=== PATIENT | male | born 1955 | race Caucasian/White ===

== ENCOUNTER 2020-01-11 19:19 | Inpatient (IN) | payer OTHER, MEDICARE ==
[~2020-01-11] VITALS: Ht 182.9 cm; Wt 67.0 kg
[2020-01-11 19:40] LABS: Calcium, Ionized (POC) 1.16 mmol/L (1.10-1.46); Chloride (POC) 108 mmol/L (98-108); Creatinine (POC) 1.1 mg/dL (0.8-1.3); Glucose (ISTAT POC) 109 mg/dL (70-99); Hemoglobin (POC) 11.6 g/dL (13.5-17.5); Sodium (POC) 142 mmol/L (135-148); Total CO2 (POC) 23 mmol/L (21-32)
[2020-01-11 19:50] LABS: PCO2 Arterial 28.2 mmHg (35-45); PO2 Arterial 104 mmHg (80-100); pH Blood Arterial 7.52 (7.35-7.45)
[2020-01-11 19:51] LABS: BASOPHILS PERCENT AUTO 1 % (0-2); EOSINOPHILS ABSOLUTE AUTO 0.51 K/mm3 (0.00-0.68); EOSINOPHILS PERCENT AUTO 6 % (0-6); Hematocrit 33.6 % (37.0-53.0); Hemoglobin 10.8 g/dL (13.5-17.5); IMMATURE GRAN ABSOLUTE AUTO 0.12 K/mm3 (0.00-0.10); IMMATURE GRAN PERCENT AUTO 1 % (0-1); LYMPHOCYTES PERCENT AUTO 28 % (21-46); MONOCYTES ABSOLUTE AUTO 0.65 K/mm3 (0.16-1.47); MONOCYTES PERCENT AUTO 7 % (4-13); Mean Corpuscular HGB Conc 32.1 g/dL (31.5-36.5); Mean Corpuscular Volume 90 fL (80-100); NEUTROPHILS PERCENT AUTO 57 % (41-73); Platelet Count 262 K/mm3 (150-400); RDW Coefficient Variation 13.8 % (11.7-14.2); Red Blood Cell Count 3.73 M/mm3 (4.30-5.90); White Blood Cell Count 9.18 K/mm3 (4.00-11.30)
[2020-01-11 19:55] LABS: Source, Urine Catheter
[2020-01-11 20:05] LABS: Bilirubin, Urine Neg (Neg); Blood, Urine Neg (Neg); Glucose Qualitative, Urine Neg (Neg); Ketones, Urine Neg (Neg); Leukocyte Esterase, Urine Neg (Neg); Nitrite, Urine Neg (Neg); Protein, Urine 2+ (Neg); Urobilinogen, Urine NORM (Normal)
[2020-01-11 20:07] LABS: Appearance, Urine Clear (Clear); Color, Urine Yellow (P-Yellow)
[2020-01-11 20:12] LABS: Bacteria Few /hpf; Red Blood Cells, Urine 0-2 /hpf (0-2); Squamous Epithelial Cells Rare /hpf (Few); White Blood Cells, Urine 0-2 /hpf (0-5)
[2020-01-11 20:26] LABS: Alanine Aminotransfer (ALT/SGP 20 U/L (12-78); Albumin/Globulin Ratio 1.1 (0.8-1.8); Alk Phos 72 U/L (50-136); Anion Gap 8 mmol/L (6-16); Aspartate Aminotrans (AST/SGOT 18 U/L (12-37); Bilirubin, Total 0.4 mg/dL (0.1-1.0); Blood Urea Nitrogen 17 mg/dL (8-24); CO2, Blood 25 mmol/L (21-32); Calcium, Blood 9.4 mg/dL (8.5-10.1); Chloride, Blood 110 mmol/L (98-108); Creatinine, Blood 1.13 mg/dL (0.60-1.20); Globulin, Blood 3.5 g/dL (2.2-4.0); Glomerular Filtration Rate >60 (60-); Glucose, Blood 103 mg/dL (70-99); Potassium, Blood 3.1 mmol/L (3.5-5.5); Sodium, Blood 143 mmol/L (136-145); Total Protein, Blood 7.5 g/dL (6.4-8.2)
[2020-01-11 20:27] LABS: Troponin I <0.015 ng/mL (0.000-0.040)
[2020-01-11] MEDS ORDERED: LISINOPRIL2.5 MG PO (22:52)
[2020-01-11] MEDS ORDERED: NOVOLOG100 UNIT/2 SC (22:53)
[2020-01-11] MEDS ORDERED: AMLODIPINE BES2.5 MG PO (22:53)
[2020-01-11] MEDS ORDERED: CREON DR 24,001 EACH PO (22:54)
[2020-01-11] MEDS ORDERED: BASAGLAR K100 UNIT/1 SC (22:54)
--- NOTE | 2020-01-12 00:15 | NUR ---
PATIENT ARRIVED TO ICU 8 VIA GURNEY FROM ED. PCU STATUS, FOR ACUTE METABOLIC ENCEPHALOPATHY. PATIENT AWAKE ABLE TO ANSWER SIMPLE QUESTIONS, YET VERY FORGETFUL. PATIENT TRANSFER TO BED USING SLIDER SHEET AND PLACED ON ICU MONITORS SHOWING AFIB WITH RATE 120'S. CARDIZEM DRIP INFUSING AT 5 MG/HR. FREQUENTLY ATTEMPTING TO GET OUT OF BED AND PULLING OFF BLANKETS AND GOWN, MAEW, PATIENT HAVING CONFUSED CONVERSATION AND NEEDING FREQUENT REMINDERS. HYPERTENSION
--- NOTE | 2020-01-12 02:48 | NUR ---
PATIENT CONTINUES TO HAVE FREQUENT RESTLESS MOMENTS, PULLING AT LINES AND CORDS. BILAT WRIST RESTRAINTS IN PLACE TO PREVENT ACCIDENTAL REMOVAL OF IV'S AND MONITORS. PATIENT NEEDING FREQUENT REMINDERS THAT HE HAS A JACOME DRAINING HIS URINE. HAVING NAUSEA AND DRY HEAVES WITH ORAL CARE, MOUTH SLIGHTLY BLOODY, UNABLE TO SEE WHERE BLEEDING FROM DUE TO NOT FOLLOWING DIRECTIONS TO OPEN MOUTH WIDE. CHANGING TO SINUS RHYTHM, CARDIZEM CONTINUES AT 5 MG. HYPERTENSION CONTINUES. ATTENDS IN PLACE DUE TO INCONT OF STOOL IN ED.
[2020-01-12 04:21] LABS: BASOPHILS ABSOLUTE AUTO 0.06 K/mm3 (0.00-0.23); BASOPHILS PERCENT AUTO 0 % (0-2); EOSINOPHILS PERCENT AUTO 0 % (0-6); Hematocrit 29.9 % (37.0-53.0); Hemoglobin 9.5 g/dL (13.5-17.5); IMMATURE GRAN ABSOLUTE AUTO 0.13 K/mm3 (0.00-0.10); IMMATURE GRAN PERCENT AUTO 1 % (0-1); LYMPHOCYTES ABSOLUTE AUTO 0.95 K/mm3 (0.84-5.20); LYMPHOCYTES PERCENT AUTO 4 % (21-46); MONOCYTES ABSOLUTE AUTO 0.81 K/mm3 (0.16-1.47); MONOCYTES PERCENT AUTO 4 % (4-13); Mean Corpuscular HGB 28.9 pg (26.0-34.0); Mean Corpuscular HGB Conc 31.8 g/dL (31.5-36.5); Mean Corpuscular Volume 91 fL (80-100); Mean Platelet Volume 12.9 fL (9.1-12.4); NEUTROPHILS ABSOLUTE AUTO 21.05 K/mm3 (1.96-9.15); NEUTROPHILS PERCENT AUTO 92 % (41-73); Platelet Count 228 K/mm3 (150-400); RDW Coefficient Variation 13.9 % (11.7-14.2); RDW Standard Deviation 46.2 fL (35.1-46.3); Red Blood Cell Count 3.29 M/mm3 (4.30-5.90)
[2020-01-12] MEDS ORDERED: LIDO700A20 TOP (04:22)
[2020-01-12] MEDS ORDERED: LIDO5TO TOP (04:23)
[2020-01-12] MEDS ORDERED: GVOKE HYPO0.5 MG/0.2 SQ (04:25)
[2020-01-12] MEDS ORDERED: Cymbalta20 MG PO (04:25)
[2020-01-12] MEDS ORDERED: CALCITONIN-SAL3.7 M1 (04:27)
[2020-01-12 04:45] LABS: Alanine Aminotransfer (ALT/SGP 23 U/L (12-78); Albumin, Blood 3.7 g/dL (3.4-5.0); Albumin/Globulin Ratio 1.2 (0.8-1.8); Alk Phos 70 U/L (50-136); Anion Gap 8 mmol/L (6-16); Aspartate Aminotrans (AST/SGOT 20 U/L (12-37); Bilirubin, Total 0.4 mg/dL (0.1-1.0); Blood Urea Nitrogen 19 mg/dL (8-24); Bun/Creatinine Ratio 16.8 (12.0-20.0); CO2, Blood 26 mmol/L (21-32); Calcium, Blood 8.6 mg/dL (8.5-10.1); Chloride, Blood 107 mmol/L (98-108); Creatinine, Blood 1.13 mg/dL (0.60-1.20); Glomerular Filtration Rate >60 (60-); Glucose, Blood 272 mg/dL (70-99); Potassium, Blood 3.6 mmol/L (3.5-5.5); Sodium, Blood 141 mmol/L (136-145); Total Protein, Blood 6.7 g/dL (6.4-8.2)
--- NOTE | 2020-01-12 06:08 | NUR ---
SUMMARY PATIENT IMPULSIVE AND UNPREDICTABLE, SPEECH CLEARING, BUT CONTINUES TO HAVE CONFUSED CONVERSATION AND VERY FORGETFUL. MAEW BUT APPEARS TO LEAN TO HIS RIGHT SIDE. BILAT WRIST RESTRAINTS CONTINUE DUE TO PATIENT PULLING ON LINES AND CORDS AND ATTEMPTING TO GET UP WITHOUT ASSISTANCE. PATIENT REMAINS IN SINUS RHYTHM WITH CARDIZEM AT 5 MG/HR. PATIENT HAVING NAUSEA OFF AND ON WITH NO EMESIS. PASSING SEVERAL SOFT BROWN BM'S T/O NOC. ADMIT HX AND [facility]
--- NOTE | 2020-01-12 07:45 | NUR ---
AM NOTE... ASSUMED CARE OF PT APROX 0700, PT AWAKEN TO VERBAL/TOUCH STIMULI PT IS NOT ORIENTED AT THIS TIME, ABLE TO STATE HIS NAME BUT NOT BIRTHDAY, PT HAS BEEN YELLING OUT "HELP ME HELP ME!" PT HAS BEEN LEANING OVER TO THE RIGHT SIDE THROWING HIS LEGS OVER THE LEFT SIDE OF THE BED, PT IS VERY STIFF TO ANY MOVEMENT. PT'S MEDICINE TECHNOLOGIST ARE STRONG AND EQUAL, PT IS ABLE TO MOVE BOTH LEGS WNL WELL. L/S CLEAR T/O ON RA WITH O2 SATS >90%. BT PRESENT AND HYPERACTIVE, PT IS C/O OF NAUSEA. PT MEDICATED PER EMAR. JACOME PATENT AND DRAINING CLEAR YELLOW URINE W/PINK TINGE TO GRAVITY. CALL LIGHT IN REACH WILL CONTINUE TO MONITOR.
--- NOTE | 2020-01-12 11:26 | NUR ---
PT UPDATE.. DR. SMITH AT THE BEDSIDE TO ASSESS PT, PT CONTINUES TO BE VERY STIFF LUMBAR PUNCTURE ORDERED STAT. WILL CONTINUE TO MONITOR.
[2020-01-12 12:53] LABS: Automated CSF WBC Count 0.002 K/mm3 (0-5); WBC Count, CSF 2 /mm3 (0-5)
[2020-01-12 13:05] LABS: RBC Count, CSF 0 /mm3 (0-0)
[2020-01-12 13:12] LABS: Lymphocytes, CSF 29 % (40-80); Monocytes, CSF 57 % (15-45); Neutrophils, CSF 14 % (0-6)
[2020-01-12 13:13] LABS: Appearance, CSF Clear (Clear); Color, CSF No Color (No Color)
[2020-01-12 13:18] LABS: Glucose, CSF 135 mg/dL (40-70)
[2020-01-12 14:11] LABS: Cryptococcus Neoformans/Gattii Not Detected (NOT DETECT); Enterovirus Not Detected (NOT DETECT); Escherichia Coli K1 Not Detected (NOT DETECT); Haemophilus Influenza Not Detected (NOT DETECT); Herpes Simplex Virus 1 Not Detected (NOT DETECT); Herpes Simplex Virus 2 Not Detected (NOT DETECT); Human Herpesvirus 6 Not Detected (NOT DETECT); Human Parechovirus Not Detected (NOT DETECT); Listeria Monocytogenes Not Detected (NOT DETECT); Neisseria Meningitidis Not Detected (NOT DETECT); Streptococcus Agalactiae Not Detected (NOT DETECT); Streptococcus Pneumoniae Not Detected (NOT DETECT); Varicella Zoster Virus Not Detected (NOT DETECT)
[2020-01-12 15:12] LABS: U Amphetamine Screen Not Detected; U Barbituate Screen Not Detected; U Benzodiazapine Screen Not Detected; U Buprenorphine Screen Not Detected; U Cannabinoids Screen DETECTED; U Cocaine Screen Not Detected; U Methadone Screen Not Detected; U Methamphetamine Screen Not Detected; U Opiates Screen Not Detected; U Oxycodone Screen Not Detected; U Phencyclidine Screen Not Detected; U Propoxyphene Screen Not Detected
--- NOTE | 2020-01-12 17:27 | NUR ---
SHIFT SUMMARY... PT CONTINUES TO BE CONFUSED AND AGITATED, PT WAS GIVEN IV ATIVAN WHICH HAS HELPED THE PT RELAX AND REDUCE HIS AGITATION. PT HAS BEEN HYPERTENSIVE WITH SBP 170'S-180'S NEW ORDERS OBTAINED FOR LABATALOL Q4 FOR SBP >170. PT'S JACOME PATENT AND DRAINING DARK YELLOW URINE TO GRAVITY. PT REMAINS IN RESTRAINTS D/T HIS IMPULSIVNESS AND HIS PICKING/PULLING AT HIS LINES/TUBES/CORDS. PT REMAINS IN AIRBORN ISOLATION UNTIL MENIGITIS IS RULED OUT. PT IS ALSO R/O COVID-19, SWAB WAS DONE AND SENT TO LAB. PT CONTINUES TO C/O OF NAUSEA, NO EMISIS HAS BEEN NOTED THIS SHIFT. PT'S CALLED AND UPDATED ON PT'S PLAN OF CARE AND CONDITION. WILL CONTINUE TO MONITOR UNTIL REPORT IS GIVEN TO ONCOMING RN.
--- NOTE | 2020-01-12 20:00 | NUR ---
ASSUMED CARE OF PT AT 1915. REPORT RECEIVED. PT PRESENTS IN BED SLEEPING. EASILY AROUSES TO VERBAL. PLEASANT AND COOPERATIVE WITH CARE AND ASSESSMENT. IS SOMEWHAT DISORIENTED. RESTLESS IN BED WHEN AWAKE. IS ABLE TO HOLD CONVERSATION THOUGH WANDERS OFF CONVERSATIONAL PATH. IN NO APPARENT DISTRESS AT THIS TIME. WILL REVIEW CHART AND PLAN OF CARE FOR THIS PT.
--- NOTE | 2020-01-13 00:30 | NUR ---
HAVE REMOVED LOWER EXTREMITY RESTRAINTS BUT HAVE LEFT VEST AND UPPER RESTRAINTS IN PLACE. PT HAS BEEN OBSERVED TRYING TO GET AHOLD OF HIS CATHETER AND ATTEMPT TO PULL. WILL CONTINUE TO MONITOR. OF NOTE: PT DOES TEND TO LEAN SELF TO THE RIGHT AND TURN HEAD TO RIGHT. SALES RECORD CLERK ARE EQUAL BI LAT. PUPILS PERRLA. WILL CONTINUE TO MONITOR.
[2020-01-13 03:59] LABS: BASOPHILS ABSOLUTE AUTO 0.04 K/mm3 (0.00-0.23); BASOPHILS PERCENT AUTO 0 % (0-2); EOSINOPHILS ABSOLUTE AUTO 0.01 K/mm3 (0.00-0.68); EOSINOPHILS PERCENT AUTO 0 % (0-6); Hematocrit 32.3 % (37.0-53.0); Hemoglobin 10.5 g/dL (13.5-17.5); IMMATURE GRAN ABSOLUTE AUTO 0.17 K/mm3 (0.00-0.10); IMMATURE GRAN PERCENT AUTO 1 % (0-1); LYMPHOCYTES ABSOLUTE AUTO 1.64 K/mm3 (0.84-5.20); LYMPHOCYTES PERCENT AUTO 6 % (21-46); MONOCYTES ABSOLUTE AUTO 1.53 K/mm3 (0.16-1.47); MONOCYTES PERCENT AUTO 6 % (4-13); Mean Corpuscular HGB 29.2 pg (26.0-34.0); Mean Corpuscular HGB Conc 32.5 g/dL (31.5-36.5); Mean Corpuscular Volume 90 fL (80-100); Mean Platelet Volume 12.8 fL (9.1-12.4); NEUTROPHILS ABSOLUTE AUTO 23.35 K/mm3 (1.96-9.15); NEUTROPHILS PERCENT AUTO 88 % (41-73); Platelet Count 251 K/mm3 (150-400); RDW Coefficient Variation 14.1 % (11.7-14.2); White Blood Cell Count 26.74 K/mm3 (4.00-11.30)
[2020-01-13 04:19] LABS: Anion Gap 7 mmol/L (6-16); Blood Urea Nitrogen 26 mg/dL (8-24); Bun/Creatinine Ratio 21.7 (12.0-20.0); CO2, Blood 26 mmol/L (21-32); Calcium, Blood 8.2 mg/dL (8.5-10.1); Chloride, Blood 109 mmol/L (98-108); Glomerular Filtration Rate >60 (60-); Glucose, Blood 234 mg/dL (70-99); Potassium, Blood 3.2 mmol/L (3.5-5.5); Sodium, Blood 142 mmol/L (136-145)
--- NOTE | 2020-01-13 06:30 | NUR ---
PT HAS MADE MULTIPLE ATTEMPTS TO GET AHOLD OF HIS CATHETER. NEEDED TO BE REDIRECTED. PT DEMONSTRATES THAT HE IS SOMEWHAT FORGETFUL. NO NEW NEURO DEFICITS NOTED. WILL CONTINUE TO MONITOR, AND WILL REPORT OFF TO ONCOMING RN.
--- NOTE | 2020-01-13 07:45 | NUR ---
AM NOTE... ASSUMED CARE OF PT APROX 0700, PT IS A&Ox4 WITH MOMENTS OF CONFUSION, PT'S MENTATION HAS GREATLY IMPROVED FROM YESTERDAY, PT IS ABLE TO STATE THE MONTH, THAT HE IS IN [facility] IN [place] AND THAT HE WAS BROUGHT HERE BECAUSE OF CONFUSION. PT IS RESPONDING APROPPRIATLY TO ALL QUESTIONS THIS MORNING. PT IS IN NSR IN THE 70'S-80'S WITH STABLE BPS. PT IS ON CARDIZEM GTT RUNNING AT 5MG/HR. L/S CLEAR T/O ON RA AND USING 2L NC FOR SLEEP, PT IS NOTED TO HAVE APNIC PERIODS DURING SLEEP WHERE HE DROPS DOWN INTO THE 70'S. BT PRESENT AND HYPOACTIVE, ABD SOFT AND NONTENDER TO PALP. NO EDEMA NOTED ON ASSESSMENT. PT'S HYDRODYNAMICS PROFESSOR ARE STRONG AND EQUAL, PT IS ABLE TO MOVE HIS LEGS BILAT, STRENGHT EQUAL IN LEGS BILAT WELL. PT'S STIFFNESS HAS IMPROVED A LITTLE FROM YESTERDAY WELL. JAOCME IS PATENT AND DRAINING CLEAR URINE TO GRAVITY. DR. GRANT AT THE [facility] FOR ASSESSMENT, PT WAS GIVEN CLEAR LIQUID DIET AND IS SWALLOWING WATER WELL AT THIS TIME. CALL LIGHT IN REACH WILL CONTINUE TO MONITOR.
--- NOTE | 2020-01-13 18:05 | NUR ---
SHIFT SUMMARY.... PT CONTINUES TO BE A&Ox4 WITH SMALL MOMENTS OF CONFUSION ESPECIALLY IF HE HAS JUST WOKEN UP. PT HAS STOPPED PULLING ON THE IV TUBES AND JACOME AND HAS NOT BEEN IMPULSIVE ABOUT GETTING UP OUT OF BED TO THE RESTRAINTS WERE STOPPED. PT WAS STARTED ON A CLEAR LIQUID DIET PER DR. GRANT AND IS TO ADVANCE TOLERATED, PT DID WELL WITH SWALLOWING AND WAS ADVANCED TO FULL LIQUID FOR DINNER. PT WAS GOTTEN UP WITH 2 PERSON TRANSFER TO A CHAIR FOR DINNER, PT SAT UP IN CHAIR WITH A SLIGHT LEAN TO THE RIGHT BUT WAS ABLE TO FEED HIMSELF WITH IS RIGHT HAND WITHOUT SPILLING ANY FOOD. TMAX FOR TODAY WAS 100.2, TEMP JACOME PATENT AND DRAINING CLEAR YELLOW URINE TO GRAVITY. PT WAS ABLE TO SPEAK WITH HIS ON THE PHONE TODAY. CALL LIGHT IN REACH, BEDALARM ON WILL CONTINUE TO MONITOR UNTIL REPORT IS GIVEN TO ONCOMING RN.
--- NOTE | 2020-01-13 20:00 | NUR ---
ASSUMED CARE OF PT AT 1915. REPORT RECEIVED AT BEDSIDE. PT PRESENTS IN BED. ALERT AND ORIENTED. VERY PLEASANT AND COOPERATIVE WITH CARE AND ASSESSMENT. DENIES PAIN. DOES REMAIN WITH HEAD/NECK TILTED TO RIGHT. SUPERVISOR MENDING EQUAL BILAT. ABLE TO MOVE ABOUT IN BED ON HIS OWN. WILL REVIEW CHART AND PLAN OF CARE FOR THIS PT.
--- NOTE | 2020-01-14 | NUR ---
HAVE MEDICATED PT WITH 10 MG LABATELOL FOR ELEVATING BLOOD PRESSURES. PT REMAINS COOPERATIVE WITH CARE AND HAS NOT PULLED AT LINES OR MADE ANY ATTEMPTS TO GET OUT OF BED.
[2020-01-14 04:30] LABS: BASOPHILS ABSOLUTE AUTO 0.05 K/mm3 (0.00-0.23); BASOPHILS PERCENT AUTO 0 % (0-2); EOSINOPHILS ABSOLUTE AUTO 0.04 K/mm3 (0.00-0.68); EOSINOPHILS PERCENT AUTO 0 % (0-6); Hematocrit 31.2 % (37.0-53.0); Hemoglobin 9.8 g/dL (13.5-17.5); IMMATURE GRAN ABSOLUTE AUTO 0.11 K/mm3 (0.00-0.10); IMMATURE GRAN PERCENT AUTO 1 % (0-1); LYMPHOCYTES ABSOLUTE AUTO 2.02 K/mm3 (0.84-5.20); LYMPHOCYTES PERCENT AUTO 10 % (21-46); MONOCYTES ABSOLUTE AUTO 1.25 K/mm3 (0.16-1.47); MONOCYTES PERCENT AUTO 6 % (4-13); Mean Corpuscular HGB 28.4 pg (26.0-34.0); Mean Corpuscular HGB Conc 31.4 g/dL (31.5-36.5); Mean Corpuscular Volume 90 fL (80-100); Mean Platelet Volume 12.5 fL (9.1-12.4); NEUTROPHILS ABSOLUTE AUTO 16.13 K/mm3 (1.96-9.15); NEUTROPHILS PERCENT AUTO 82 % (41-73); Platelet Count 242 K/mm3 (150-400); RDW Standard Deviation 46.9 fL (35.1-46.3); Red Blood Cell Count 3.45 M/mm3 (4.30-5.90)
[2020-01-14 04:52] LABS: Anion Gap 5 mmol/L (6-16); Blood Urea Nitrogen 25 mg/dL (8-24); Bun/Creatinine Ratio 21.2 (12.0-20.0); CO2, Blood 29 mmol/L (21-32); Calcium, Blood 7.8 mg/dL (8.5-10.1); Chloride, Blood 109 mmol/L (98-108); Creatinine, Blood 1.18 mg/dL (0.60-1.20); Glomerular Filtration Rate >60 (60-); Glucose, Blood 138 mg/dL (70-99); Potassium, Blood 3.1 mmol/L (3.5-5.5); Sodium, Blood 143 mmol/L (136-145)
--- NOTE | 2020-01-14 06:30 | NUR ---
PT HAS BEEN TO CT AND IS NOW BACK. TOLERATED PROCEDURE WELL. NO COMPLAINTS THROUGHOUT THE NIGHT. NO CHANGES TO REPORT TO PREVIOUS ASSESSMENTS. 2 LITERS OXYGEN PER NASAL CANNULA WHILE ASLEEP SECONDARY TO SLEEP APNEA BREATHING PATTERN WHILE ASLEEP. WILL CONTINUE TO MONITOR PT, AND WILL REPORT OFF TO ONCOMING RN.
[2020-01-14] MEDS ORDERED: Amoxicillin500 MG PO (15:13)
[2020-01-14] MEDS ORDERED: ASPI325 PO (15:14)
--- NOTE | 2020-01-14 16:35 | NUR ---
TRANSFER TO [facility] AT 1615 PT REMAINED DROWSY ALL DAY BUT APPROPRIATE AND COOPERATIVE WHEN AWAKE, ORIENTED X4. TOOK A FEW BITES OF FOOD BUT THEN FELL BACK ASLEEP. WAS UNABLE TO PARTICIPATE MUCH IN PT/OT D/T NAUSEA DESPITE BEING MEDICATED PRIOR TO THERAPIES. NAA DC'D AT 1238, PT HAS NOT YET VOIDED. PT'S NECK STIFFNESS SEEMS TO BE IMPROVING FROM NOC SHIFT REPORT, PT ABLE TO TURN HEAD SIDE TO SIDE, HEAD RESTING MIDLINE AND NOT TO R SIDE ANYMORE. PT DID HAVE SOME STIFFNESS WHEN ASKED TO PUT CHIN TO CHEST, DENIED PAIN. BP BECAME INCREASINGLY ELEVATED THIS AFTERNOON, MEDICATED X1 WITH LABETOLOL FOR HTN PRIOR TO TRANSFER TO MED FLOOR. HR REMAINS 70'S SINUS T/O SHIFT, LS CLEAR, SPO2 >90% ON RA. NO BM THIS SHIFT. REPORT TO RECEIVING NURSE.
--- NOTE | 2020-01-14 17:41 | NUR ---
Initial spiritual care note: Mr. Melendez was pleasant and welcomed conversation/companionship. He and his moved to [place] from [place] on Saturday. He blames what happened on his exposure to [place] while in [facility]. He also says he is prone to strokes. He is happy to be feeling better and denied conerns. He allowed me to pray for him. Pastoral care will remain available.
--- NOTE | 2020-01-14 18:04 | NUR ---
SHIFT SUMMARY PATIENT ARRIVED TO THE FLOOR FROM ICU LATE THIS AFTERNOON. PATIENT DROWSY YET ALERT UPON ARRIVAL. PATIENT MADE COMFORTABLE AND ORIENTED TO THE ROOM. PATIENT REQUESTED CONTACT WITH HIS . CALL PLACED TO HIS AND MESSAGE LEFT. AWAITING CALL BACK. PATIENT SITTING UP IN BED EATING DINNER.
--- NOTE | 2020-01-15 04:38 | NUR ---
BENDER HELPER SUMMARY PT A/O X3, CANNOT RECALL YEAR. SLEPT WELL TONIGHT. DENIES PAIN. HE IS NAUSEOUS WHEN HE IS REPOSITIONED BUT HE SAYS IT'S TOLERABLE. NO SLURRED SPEECH. EXPRESSIONS ARE SYMMETRICAL. PT DENIES WEAKNESS IN ONE PARTICULAR SIDE. I DID NOT NOTICE DIFFERENCE IN ANALYSIS REPORTING DEVELOPER. PT EXPRESSES TO ME ITS "GENERALIZED WEAKNESS". 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 HE SEEMS MORE ORIENTED COMPARED TO BEGINNING OF SHIFT WHERE HE WAS CALLING OUT FOR HELP ABOUT HIS AND DAUGHTER MULTIPLE TIMES. HAD VISITED PT AT BEGINNING OF SHIFT WHO EXPRESSED HER CONCERN TO ME ABOUT NOT BEING ABLE TO TAKE CARE OF PT BY HERSELF BECAUSE HE CANNOT AMBULATE BY HIMSELF. PT IS HYPERTENSIVE. LABETALOL GIVEN THIS MORNING WHICH LOWERED HIS BP A LITTLE BIT. BED ALARM ON. CALL LIGHT WITHIN REACH.
[2020-01-15 05:48] LABS: BASOPHILS ABSOLUTE AUTO 0.04 K/mm3 (0.00-0.23); BASOPHILS PERCENT AUTO 0 % (0-2); EOSINOPHILS ABSOLUTE AUTO 0.04 K/mm3 (0.00-0.68); EOSINOPHILS PERCENT AUTO 0 % (0-6); Hemoglobin 10.8 g/dL (13.5-17.5); IMMATURE GRAN ABSOLUTE AUTO 0.05 K/mm3 (0.00-0.10); IMMATURE GRAN PERCENT AUTO 0 % (0-1); LYMPHOCYTES ABSOLUTE AUTO 1.21 K/mm3 (0.84-5.20); LYMPHOCYTES PERCENT AUTO 9 % (21-46); MONOCYTES ABSOLUTE AUTO 1.05 K/mm3 (0.16-1.47); MONOCYTES PERCENT AUTO 8 % (4-13); Mean Corpuscular HGB 28.5 pg (26.0-34.0); Mean Corpuscular HGB Conc 31.8 g/dL (31.5-36.5); Mean Corpuscular Volume 90 fL (80-100); Mean Platelet Volume 12.3 fL (9.1-12.4); NEUTROPHILS ABSOLUTE AUTO 10.94 K/mm3 (1.96-9.15); NEUTROPHILS PERCENT AUTO 82 % (41-73); Platelet Count 240 K/mm3 (150-400); RDW Coefficient Variation 13.9 % (11.7-14.2); Red Blood Cell Count 3.79 M/mm3 (4.30-5.90); White Blood Cell Count 13.33 K/mm3 (4.00-11.30)
[2020-01-15 06:09] LABS: Anion Gap 5 mmol/L (6-16); Blood Urea Nitrogen 16 mg/dL (8-24); Bun/Creatinine Ratio 15.4 (12.0-20.0); CO2, Blood 30 mmol/L (21-32); Calcium, Blood 7.9 mg/dL (8.5-10.1); Chloride, Blood 104 mmol/L (98-108); Creatinine, Blood 1.04 mg/dL (0.60-1.20); Glomerular Filtration Rate >60 (60-); Glucose, Blood 219 mg/dL (70-99); Sodium, Blood 139 mmol/L (136-145)
--- NOTE | 2020-01-15 12:08 | NUR ---
PATIENT FIGHTING WITH HIS OVER THE PHONE AT THIS TIME ABOUT GOING HOME.
--- NOTE | 2020-01-15 12:27 | NUR ---
PATIENT IS WORRIED ABOUT WANTING TO GO HOME TO BE ABLE TO BE WITH HIS RABBITS AND STATES THAT THE CANNOT DO ANYTHING WITHOUT HIM IN THE HOME DUE TO EVERYTHING BEING IN HIS OWN NAME. HE IS VERY ANGRY ABOUT THE POSSIBILITY OF GOING TO A SNF NOW. HE STATES THAT HE IS GOING HOME NO MATTER WHAT.
--- NOTE | 2020-01-15 12:59 | NUR ---
dr. yun spoke with the patient and he stated that he is okay with going to a snf until he can go home. dr. yun spoke with the patient's and at this point they are still content with the plan although he is unhappy with everything going on.
--- NOTE | 2020-01-15 17:00 | NUR ---
SHIFT SUMMARY PATIENT IS PLEASANT, HE IS ALERT TO SELF AND PLACE. HE AHS BEEN COMPLAINING OF DIZZINESS AND NAUSEA. HE WANTS TO GO HOME, [facility].
--- NOTE | 2020-01-16 05:46 | NUR ---
SHIFT SUMMARY PT IS A 64 Y/O MALE, ADMITTED FOR ACUTE METABOLIC ENCEPHALOPATHY OF UNKNOWN ETIOLOGY. HE IS A&O X 2, A 2PA WITH FWW OUT OF BED. PT IS INCONTINENT, TURN Q2H. HE IS RECEIVING LR @ 150 ML/HR. PT DENIED ANY COMPLAINTS OF PAIN, NAUSEA OR SOB, AND SLEPT WELL THROUGH THE NIGHT. TELE SHOWED NSR IN THE 90S. VITAL SIGNS OTHERWISE STABLE. NO ACUTE CHANGES IN PT CONDITION NOTED DURING THE NIGHT. WILL CONTINUE TO MONITOR AND TREAT PER EMAR UNTIL HAND OFF TO DAY SHIFT RN.
[2020-01-16 06:02] LABS: BASOPHILS ABSOLUTE AUTO 0.04 K/mm3 (0.00-0.23); BASOPHILS PERCENT AUTO 0 % (0-2); EOSINOPHILS ABSOLUTE AUTO 0.09 K/mm3 (0.00-0.68); EOSINOPHILS PERCENT AUTO 1 % (0-6); Hematocrit 35.6 % (37.0-53.0); Hemoglobin 11.6 g/dL (13.5-17.5); IMMATURE GRAN ABSOLUTE AUTO 0.05 K/mm3 (0.00-0.10); IMMATURE GRAN PERCENT AUTO 0 % (0-1); LYMPHOCYTES ABSOLUTE AUTO 1.86 K/mm3 (0.84-5.20); LYMPHOCYTES PERCENT AUTO 16 % (21-46); MONOCYTES ABSOLUTE AUTO 1.13 K/mm3 (0.16-1.47); MONOCYTES PERCENT AUTO 10 % (4-13); Mean Corpuscular HGB 28.9 pg (26.0-34.0); Mean Corpuscular HGB Conc 32.6 g/dL (31.5-36.5); Mean Corpuscular Volume 89 fL (80-100); Mean Platelet Volume 12.4 fL (9.1-12.4); NEUTROPHILS ABSOLUTE AUTO 8.41 K/mm3 (1.96-9.15); NEUTROPHILS PERCENT AUTO 73 % (41-73); Platelet Count 257 K/mm3 (150-400); RDW Coefficient Variation 13.7 % (11.7-14.2); RDW Standard Deviation 44.4 fL (35.1-46.3); Red Blood Cell Count 4.02 M/mm3 (4.30-5.90); White Blood Cell Count 11.58 K/mm3 (4.00-11.30)
[2020-01-16 06:25] LABS: Anion Gap 5 mmol/L (6-16); Blood Urea Nitrogen 13 mg/dL (8-24); Bun/Creatinine Ratio 13.3 (12.0-20.0); CO2, Blood 32 mmol/L (21-32); Chloride, Blood 104 mmol/L (98-108); Creatinine, Blood 0.97 mg/dL (0.60-1.20); Glomerular Filtration Rate >60 (60-); Glucose, Blood 45 mg/dL (70-99); Potassium, Blood 2.7 mmol/L (3.5-5.5); Sodium, Blood 141 mmol/L (136-145)
--- NOTE | 2020-01-16 11:27 | NUR ---
called dr. yun about the patient's blood sugar. instructed to give the patient his scheduled insulin and recheck his blood sugar in an hour. will hold the patient's lunch and give the doctor a call after his next blood sugar check.
--- NOTE | 2020-01-16 13:24 | NUR ---
RECHECKED PATIENT'S BLOOD SUGAR. CALLING DR. GRANT AT THIS TIME.
--- NOTE | 2020-01-16 15:51 | NUR ---
SPOKE WITH DR. GRANT ABOUT THE PATIENT'S BLOOD SUGAR. HE IS SLOWLY COMING DOWN. SHE ASKED TO CHECK AGAIN AT 1630. SHE ALSO REQUESTED A CALL IF THIS ONE IS ABOVE 300. NO ACUTE CONCERN FROM THE PATIENT AT THIS TIME.
--- NOTE | 2020-01-16 18:55 | NUR ---
SHIFT SUMMARY PATIENT IS PLEASANT AT THIS TIME. HE WOULD LIKE TO CALL HIS , HIS BLOOD SUGARS HAVE BEEN VERY LABILE. HE HAS BEEN BRITTLE TODAY. HE DENIES ANY PAIN, SHORTNESS OF BREATH, OR CONCERNS. HE GOT UP IN THE CHAIR FOR MEALS TODAY. HE HAD 60MEQ OF POTASSIUM A REPLACEMENT TODAY.
--- NOTE | 2020-01-16 19:55 | NUR ---
Met with pt today at RN request he is having great distress at being in hospital and his wifes response to his care needs. He ask that I call her. She came in before I could call and they had a good discussion. pt more alert this afternoon attemtpted symptom assessment but he kept changing subject he has righing in his ears and blance issues and bouts of fatigue. he is wanting to eat meor called physician for advancement of diet will have table machine operator see him. will attempt full symptom assessment. We had some discussion advce care planning and brian and POA and advance directives. He is thinking if he gets worse her will make himself a DNR today he was fexated on setting up fianacials for his family and starting a will. He states he does not have and insurance defense attorney and will use contracts paralegal at the [place]. He is sevice connected.
--- NOTE | 2020-01-17 06:48 | NUR ---
SHIFT SUMMARY PT IS A 64 Y/O MALE, ADMITTED FOR ACUTE METABOLIC ENCEPHALOPATHY. HE IS A&O X 2, A 2PA C FWW TO THE CHAIR. PT IS INCONTINENT, TURN Q2H. NO COMPLAINTS OF PAIN, NAUSEA OR SOB. VITAL SIGNS STABLE. THIS AM, PT WAS VERY AGITATED AND ANGRY, STATING THAT HE WAS "READY TO LEAVE", AND THAT "I DONT WANT TO GO TO THAT REHAB PLACE, I WANT TO GO HOME". PT STATED THAT HE ATTEMPTED TO CALL HIS , BUT SHE DID NOT ANSWER, AND THAT "MY DAUGHTER WILL COME AND GET ME". ATTEMPTED TO CONVINCE THE PT TO WAIT UNTIL HE COULD SPEAK WITH A MD. NO OTHER ACUTE CHANGES IN PT CONDITION NOTED. WILL CONTINUE TO MONITOR AND TREAT PER EMAR UNTIL HAND OFF TO DAY SHIFT RN.
[2020-01-17 10:38] LABS: Anion Gap 4 mmol/L (6-16); Blood Urea Nitrogen 19 mg/dL (8-24); Bun/Creatinine Ratio 18.3 (12.0-20.0); CO2, Blood 31 mmol/L (21-32); Calcium, Blood 7.9 mg/dL (8.5-10.1); Chloride, Blood 104 mmol/L (98-108); Creatinine, Blood 1.04 mg/dL (0.60-1.20); Glomerular Filtration Rate >60 (60-); Glucose, Blood 205 mg/dL (70-99); Potassium, Blood 3.4 mmol/L (3.5-5.5); Sodium, Blood 139 mmol/L (136-145)
--- NOTE | 2020-01-17 15:42 | NUR ---
SHIFT SUMMARY PATIENT HAS BEEN LABILE WITH HIS EMOTIONS TODAY AND CHOOSING AT TIMES TO BE UNCOOPERATIVE WITH CARE. HE REPORTS THAT HE IS WANTING TO LEAVE AGAINST MEDICAL ADVICE. I HAVE TALKED HIM OUT OF THAT AT THIS TIME, BUT HE IS STILL UNCOOPERATIVE WITH CARE.
--- NOTE | 2020-01-17 18:11 | NUR ---
PATIENT'S CALLED AND EXPRESSED HER CONCERNS. SHE STATES THAT THE PATIENT HAS BEEN CALLING HIS FAMILY TO COME PICK HIM UP. SHE IS CONCERNED THAT HE IS ALSO TELLING PEOPLE HE IS ON THE BRINK OF AND NEEDS BETTER CARE.
--- NOTE | 2020-01-18 02:25 | NUR ---
OVER THE PAST 2 HOURS PT HAS BECOME PROGRESSIVELY MORE RESTLESS, FIGITY, REMOVING GOWN AND TELEMETRY CONSTANTLY AND HAS MADE ATTEMPTS OOB BY SELF SETTING OFF HIS BED ALARM. HE BEGAN SHIFT A/O EXCEPT TO MONTH BUT IS NOW MORE CONFUSED AND THINKS HE SHOULD BE "GETTING DRESSED TO LEAVE FOR USP". STAFF KEEP REORIENTING PT PRN. CBG CHECKED, NOW 244, TEMP RESOLVED NOW (98.4 ORAL), BP 171/106 AND ALL ABOVE INFO WAS CONVEYED TO . SHE STATED TO D/C TELEMETRY AT THIS TIME. HE'S BEEN NSR AT 68-72 BPM W/O ECTOPIES SINCE TELEMETRY WAS COMMENCED >48 HOURS AGO. AND SHE INSTRUCTED TO GIVE PRN ATIVAN CURRENTLY RX'D FOR S/S ANXIETY. WILL REEVALUATE BP ONCE PT APPEARS MORE SETTLED.
--- NOTE | 2020-01-18 05:23 | NUR ---
SUMMARY: PT BEGAN SHIFT A/OX3 W/MILD CONFUSION TO MONTH/EVENT BUT HE INQUIRED ABOUT POSSIBLE D/C TO SNF INDICATING RECOLLECTION OF INTENDED PLAN. HE REQUESTED ATIVAN PRN AT BEDTIME FOR SLEEP AND CALLED APPROPRIATELY PRIOR. NIGHT PROGRESSED HE BECAME MORE CONFUSED AND FORGETFULL: DISROBING, PULLING AT LINES AND SETTING OFF BED ALARM TO SIT AT EOB. HE BECAME FIXATED ON "NEEDING TO GET DRESSED TO GO" DESPITE REORIENTATION AND REDIRECTION. TELEMETRY WAS DC'D RESULT OF CONSTANTLY REMOVING IT AND HE'D BEEN OBSERVED W/O ECTOPIES IN NSR W/REGULAR RATE PRIOR. LABETOLOL WASN'T STOPPED BUT ADDED PRN HYDRALAZINE FOR SBP>160. X1 PRN ATIVAN IV RECIEVED THIS AM FOR ANXIETY AND ASSOCIATED HTN FOR GOOD EFFECT. HE WAS CONTINENT W/URINAL ASSIST AT START OF SHIFT THEN WAS INCONTINENT W/O AWARENESS WHEN ASLEEP, NO BM THIS SHIFT. TURN SCHEDULE MAINTAINED AND LOTION APPLIED TO BUTTOCKS FOR SBD PREVENTION. FEET ARE ELEVATED IN BED AND APPEAR SWOLLEN W/SCATTERED BRUISING AND ABRASIONS NOTED TO EXT'S. NO ACUTE CHANGES, VSS/AFEBRILE. WCTM AND REPORT TO DAY RN.
--- NOTE | 2020-01-18 06:44 | NUR ---
PT HAS AWOKEN VERY AGGITATED THIS AM RE:BEING HOSPITALIZED. STAFF ATTEMPTED TO CALM PT AND PROVIDE EDUCATION BUT HE REQUESTS TO CALL HIS TO HAVE HER "TAKE HIM HOME AMA". PT ASSISTED TO CALL HIS . HE THEN ALERTED STAFF THAT "HIS WAS OF NO ASSISTANCE TO HIM" AND HE NEEDS TO "TALK TO AN HELP DESK ASSISTANT ABOUT REMOVING HER POA RIGHTS". HIS HAS BEEN HIS CAREGIVER FOR PAST 2O YEARS PER RN REPORT.
--- NOTE | 2020-01-18 12:53 | NUR ---
HYPOTENSION DR. GRANT NOTIFIED OF HYPOTENSION WHEN STANDING DURING PHYSICAL THERAPY EVAL.
--- NOTE | 2020-01-18 17:16 | NUR ---
SHIFT SUMMARY PT IRRATIABLE THIS MORNING AND DEMANDING TO GO HOME. PT REDIRECTED BY GETTING UP INTO CHAIR AND GETTING HIS HOME SWEATS ON. PT INTO MEET WITH DR. GRANT & DR. CRUZ THIS AM. PSYCH CONSULT PLACED AFTERWARDS TO ASSESS PT DECISION MAKING CAPABILITIES. , BRIDGET IN TO SEE PT AFTER MEETING, PT STATED HE WILL TAKE HER OFF WILL IF SHE DOESNT TAKE HIM HOME. AFTER LEFT. PT HAD A LONG NAP AND ALMOST SLEPT THROUGH BREAKFAST. INCONT T/O DAY. CALM AND COOPERATIVE THIS AFTERNOON WITH CARE. VS REVIEWED. PT DID HAVE NON SYMPTOMATIC EPISODE OF HYPOTENSION WHEN STANDING WITH PHYSICAL THERAPY. DR. GRANT NOTIFIED. NO OTHER CHANGES IN ASSESSMENT AT THIS TIME. WILL CONTINUE TO MONITOR UNTIL TURNOVER IS COMPLETE.
--- NOTE | 2020-01-19 04:15 | NUR ---
01/19/20 0250 AWAKENED FROM SLEEP AND WANTED TO "KNOW WHAT I NEED TO DO NOW?" RN REORIENTED HIM TO SURROUNDINGS AND TIME OF DAY. PT WAS INCONTINENT OF URINE AND PATIENCE-CARE AND ATTENDS CHANGED. SALES REPRESENTATIVE HEALTH INSURANCE AND RN REPOSITIONED HIM TO OTHER SIDE. BED ALARM ON.
--- NOTE | 2020-01-19 04:25 | NUR ---
01/19/20 0425 PT HAS BEEN CONFUSED, ANXIOUS AND UNABLE TO SLEEP. KEEPS CALLING TO HAVE BLANKETS APPLIED BUT THEN HE REMOVES THEM WHEN [employer]ISCO NETWORK ENGINEER COME TO ANSWER HIS LIGHT. HE THEN STATES HE IS COLD AND WANTS A BLANKET. HE RINGS CALL HOUGH AGAIN AND HE HAS TAKEN THEM OFF AGAIN. PT ANXIOUS AND WAS MEDICATED PER JUL.
--- NOTE | 2020-01-19 07:19 | NUR ---
01/19/20 0510 PT AGITATED AND WANTING TO GET DRESSED AND GO HOME. RE-ORIENTED TO TIME AND SURROUNGINGS. PT WAS RESISTANT TO GO BACK TO BED BUT EVENTUALLY DID. NUMEROUS BRIEF CHANGES FOR INCONTINENT URINE AND SOFT, BROWN STOOLS. GROIN VERY TENDER AND SKIN BARRIER CREAM APPLIED FREQUENTLY.
--- NOTE | 2020-01-19 10:21 | NUR ---
AGITATION INCREASING PT AGITATION INCREASING. PT AGITATED ABOUT NOT BEING ABLE TO GET AHOLD OF HIS FOR HER TO COME PICK HIM UP. PT STATES HE "WILL WALK OUT OF HERE" IF HE HAS TO. PT MEDICATED WITH ATIVAN. COFFEE PROVIDED TO HELP WITH DISTRACTION. WILL CONTINUE TO MONITOR.
--- NOTE | 2020-01-19 15:10 | NUR ---
ORTHOSTATIC BP PT WORKED WITH PHYSICAL THERAPY TODAY. DURING TREATMENT, PT HAD BP OF 144/79 TO START WHILE SITTING. AFTER STANDING , BP FELL TO 97/53. ONCE RETURNED TO THE CHAIR, BP INCREASED TO 140/71. HR T/O REMAINED IN THE 70S. MESSAGE LEFT WITH DR. GRANT TO CALL BACK WHEN AVAILABLE.
--- NOTE | 2020-01-19 17:29 | NUR ---
SHIFT SUMMARY PT HAD MORE DIFFICULT DAY. EASILY AGITATED ABOUT BEING IN THE HOSPITAL. PT STATES HE IS BEING MISTREATED AND DEMANDS TO LEAVE AND THEN SOON AFTER HAS FORGOTTEN WHERE HE IS AND IS THANKFUL FOR HIS CARE. THIS SAME WAXING AND WANING GOES FOR THE PATIENTS ATTITUDE RELATED TO HIS . FLUID BOLUS GIVEN PER DR. CRUZ FOR ORTHOSTATIC BP. DR. GOMES IN TO SEE PT AND RECOMENDING [employer] WELL MADE SOME MEDICATION CHANGES. NO OTHER CHANGES IN ASSESSMENT AT THIS TIME. VS REVIEWED. WILL CONTINUE TO MONITOR UNTIL TURNOVER IS COMPLETE.
--- NOTE | 2020-01-20 00:28 | NUR ---
01/19/20 2310 PT AWAKE AND TRYING TO GET OUT OF BED. WHEN RN ASKED HE STATED HE NEEDED TO GET DRESSED AND GO HOME. RN REORIENTED PT TO TIME OF DAY AND SURROUNDINGS. HE SAID, "I DON'T CARE." CONTINUES TO TRY AND GET UP. THREATENING STAFF THAT HE WILL "PUNCH SOMEONE" IF NEEDED. RN PAGED ON-CALL HOSPITALIST TO INFORM HER OF NEED FOR RESTRAINTS. SEE ORDERS.
[2020-01-20 04:56] LABS: BASOPHILS ABSOLUTE AUTO 0.06 K/mm3 (0.00-0.23); BASOPHILS PERCENT AUTO 1 % (0-2); EOSINOPHILS ABSOLUTE AUTO 0.53 K/mm3 (0.00-0.68); EOSINOPHILS PERCENT AUTO 5 % (0-6); Hematocrit 31.3 % (37.0-53.0); Hemoglobin 9.8 g/dL (13.5-17.5); IMMATURE GRAN ABSOLUTE AUTO 0.05 K/mm3 (0.00-0.10); IMMATURE GRAN PERCENT AUTO 1 % (0-1); LYMPHOCYTES ABSOLUTE AUTO 2.32 K/mm3 (0.84-5.20); LYMPHOCYTES PERCENT AUTO 22 % (21-46); MONOCYTES PERCENT AUTO 9 % (4-13); Mean Corpuscular HGB 28.7 pg (26.0-34.0); Mean Corpuscular HGB Conc 31.3 g/dL (31.5-36.5); Mean Corpuscular Volume 92 fL (80-100); Mean Platelet Volume 12.1 fL (9.1-12.4); NEUTROPHILS ABSOLUTE AUTO 6.73 K/mm3 (1.96-9.15); NEUTROPHILS PERCENT AUTO 64 % (41-73); Platelet Count 277 K/mm3 (150-400); RDW Coefficient Variation 13.7 % (11.7-14.2); RDW Standard Deviation 45.5 fL (35.1-46.3); Red Blood Cell Count 3.42 M/mm3 (4.30-5.90); White Blood Cell Count 10.59 K/mm3 (4.00-11.30)
[2020-01-20 05:11] LABS: Calcium, Blood 8.3 mg/dL (8.5-10.1); Creatinine, Blood 1.28 mg/dL (0.60-1.20); Potassium, Blood 3.5 mmol/L (3.5-5.5)
--- NOTE | 2020-01-20 06:42 | NUR ---
01/20/20 0600 PT AWAKE AND WAS INCONTINENT OF URINE. ATTENDS BRIEF CHANGED AND PATIENCE-CARE GIVEN. PT MORE RELAXED AND ALLOWED RN TO START NEW IV NOW. PATRICIA VEST MAINTAINED. BED ALARM AND CONT. VIDEO MONITORING IN PLACE. VITALS STABLE.
--- NOTE | 2020-01-20 16:41 | NUR ---
SHIFT SUMMARY IMPULSIVE. ALERT TO SELF ONLY, AND OFTEN AGITATED. ATTEMPTS TO GET OUT BED/CHAIR WHEN UNSAFE TO DO SO. PULLS AT PATRICIA, AND SWINGS LEGS OVER BEDRAIL. FIXATED ON LEAVING, AND OFTEN UNREDIRECTABLE. HELPED PT DIAL HIS , PER HIS REQUEST. EXPLAINED PLAN OF CARE AND REASON FOR ADMISSION; NEEDS REINFORCEMENT. BED BATH GIVEN. SEROQUEL GIVEN TWICE TODAY. SLEPT THIS MORNING AFTER BREAKFAST AND HAS REMAINED AWAKE IN THE CHAIR SINCE ABOUT NOON. TRANSFERS TO [facility] WITH X2A, FWW AND GAIT BELT. PATRICIA IN PLACE, CHAIR ALARM ON. STATES THAT SHE IN THE PROCESS OF OBTAINING GUARDIANSHIP.
--- NOTE | 2020-01-20 19:22 | NUR ---
BELONGINGS KEYS AND HOME MEDICATIONS SENT HOME WITH .
--- NOTE | 2020-01-20 21:58 | NUR ---
PT REMAINS IN PATRICIA VEST HE IS VERY UNSTEADY AND CONTINUES TO ATTEMPT TO GET OUT OF BED, NON REDIRECTABLE. CALL LIGHT IN REACH. RAILS UP. CONTINUOUS VIDEO MONITORING.
--- NOTE | 2020-01-20 23:10 | NUR ---
WAS NOTIFIED BY VIDEO GRADER MEAT THAT PT WAS TRYING TO GET OUT OF BED. UPON ARRIVAL AT ROOM, NOTED PT HAD TAKEN OFF HIS PATRICIA VEST. ASSISTED WITH URINAL, PATRICIA REAPPLIED AND ORDER FOR BILAT WRIST RESTRAINT OBTAINED AND APPLIED FOR SAFETY. CALL LIGHT IN REACH.
--- NOTE | 2020-01-21 00:08 | NUR ---
AGITATION CONTINUES. PULLED SELF OUT OF BILAT WRIST RESTRAINTS AND WAVED HANDS AT NURSE IF HE WAS TAUNTING NURSE. NURSE INTERVENED HE WAS TRYING TO PULL OFF HIS VEST WELL. OTHER NURSES CAME IN TO ASSIST. PT DEMANDED TO SPEAK TO HIS , WAS CALLED, PT BECAME SARCASTIC WITH HER AND HUNG UP ON HER. PT CONTINUED RO ESCALATE, ZYPREXA 10 MG IM ADMINISTERED INTO LEFT THIGH PER MD ORDERS. PT THEN LAID BACK FOR A FEW MINUTES, THEN ASKED FOR WARM TEA. WARM TEA GIVEN TO PT, CURRENTLY PT DRINKING TEA. CALL LIGHT IN REACH. RAILS UP X 4, AND PATRICIA VEST IN PLACE. WILL ASSESS BEHAVIOR RE WRIST RESTRAINTS NEEDED.
--- NOTE | 2020-01-21 03:17 | NUR ---
SHIFT SUMMARY AWAKE AND AGITATED MOST OF SHIFT. AFFECT LABILE. INTERMITTENT THREATS TO CALL THE AUTHORITIES ON STAFF, MEDICATED PER JUL FOR AGITATION, BILAT WRIST RESTRAINTS APPLIED PER MD ORDER AFTER HE REMOVED PATRICIA VEST TO TRY TO GET OUT OF BED - VERY UNSTEADY AND NON REDIRECTABLE. ARGUED WITH ON PHONE AND HUNG UP ON HER. CURRENTLY CALLING OUT AT INTERVALS AND TALKING TO SELF. CALL LIGHT IN REACH. RAILS UP X 4. VIDEO MONITORING CONTINUES. WILL CONTINUIE TO MAINTAIN SAFETY.
--- NOTE | 2020-01-21 18:12 | NUR ---
SHIFT SUMMARY PT A/O X1. HE HAS BEEN DROWSY THIS SHIFT AND HAS SLEPT THROUGH MOST OF IT. HE HAS BEEN PLEASANT AND COOPERATIVE THIS SHIFT. BLOOD GLUCOSE WAS OVER 400 THIS AM SO HIS SLIDING SCALE WAS ADJUSTED FROM MEDIUM TO HIGH. PT REMAINS IN SOFT BILAT WRIST RESTRAINTS AND A PATRICIA VEST. DR LE STATED THAT THE PT IS TO ONLY CALL HIS BETWEEN THE HOURS OF 0800 AND 2200. VSS; WILL CONTINUE TO MONITOR.
--- NOTE | 2020-01-21 21:41 | NUR ---
SPOKE WITH EARLIER, VOICED MORE FOCUS ON WORKING TO GET BETTER. UMANG AND BILAT WRIST RESTRAINTS CONTINUE HE CONTINUES TO ATTEMPT TO GET OUT OF BED AND IS A HIGH FALL RISK. CALL LIGHT IN REACH. WILL CONTINE TO ATTEMPT TO REDIRECT BEHAVIOR.
--- NOTE | 2020-01-22 18:29 | NUR ---
SHIFT SUMMARY PT A/O 1/ AND COOPERATIVE THIS SHIFT. HE HAD HIS VISIT AND MET WITH THE DOCTOR AND THE DISCHARGE PLANNER. WRIST RESTRAINTS DC'D AND PT UP TO THE CHAIR WITH A PATRICIA VEST FOR PART OF THE SHIFT. PT PLEASANCE AND COOPERATIVE WITH CARE PROVIDED TODAY. USES THE URINAL WITH HELP. BLOOD GLUCOSE >400 TWICE TODAY. LANTUS ADJUSTED. VSS; WILL CONTINUE TO MONITOR.
--- NOTE | 2020-01-23 04:36 | NUR ---
ESTHETICIAN AND MANAGER MEDICAL SPA SUMMARY PT ALERT AND ORIENTED X1-2, COOPERATIVE WITH CARE. USES CALL LIGHT APPROPRIATELY. APPEARED TO SLEEP WELL MOST OF SHIFT. NO ACUTE DISTRESS NOTED. VSS. BREATHING IS UNLABORED. PATRICIA VEST STILL CURRENTLY IN PLACE FOR SAFETY. BED IN LOWEST POSITION WITH CALL LIGHT IN REACH. WILL CONTINUE TO MONITOR AND REPORT TO ONCOMING RN.
[2020-01-23 05:31] LABS: Albumin, Blood 3.1 g/dL (3.4-5.0); Anion Gap 6 mmol/L (6-16); Blood Urea Nitrogen 42 mg/dL (8-24); Bun/Creatinine Ratio 27.3 (12.0-20.0); CO2, Blood 30 mmol/L (21-32); Calcium, Blood 9.1 mg/dL (8.5-10.1); Chloride, Blood 103 mmol/L (98-108); Creatinine, Blood 1.54 mg/dL (0.60-1.20); Glomerular Filtration Rate 48 (60-); Glucose, Blood 113 mg/dL (70-99); Phosphorus, Blood 3.7 mg/dL (2.5-4.9); Potassium, Blood 3.9 mmol/L (3.5-5.5); Sodium, Blood 139 mmol/L (136-145)
--- NOTE | 2020-01-23 19:20 | NUR ---
SHIFT SUMMARY: NO ACUTE CHANGES TO REPORT THIS SHIFT. PT HX CVA; CONFUSED; LABILE. COOPERATIVE WITH CARE. PATRICIA SMITH D/C'd THIS SHIFT. PHYSICAL THERAPY FOLLOWING. AWAITING GUARDIANSHIP. REPORT GIVEN TO ONCOMING RN.
[2020-01-23 23:11] LABS: BASOPHILS ABSOLUTE AUTO 0.04 K/mm3 (0.00-0.23); BASOPHILS PERCENT AUTO 0 % (0-2); EOSINOPHILS ABSOLUTE AUTO 0.26 K/mm3 (0.00-0.68); EOSINOPHILS PERCENT AUTO 2 % (0-6); Hematocrit 35.3 % (37.0-53.0); Hemoglobin 11.1 g/dL (13.5-17.5); IMMATURE GRAN ABSOLUTE AUTO 0.07 K/mm3 (0.00-0.10); IMMATURE GRAN PERCENT AUTO 1 % (0-1); LYMPHOCYTES ABSOLUTE AUTO 2.14 K/mm3 (0.84-5.20); LYMPHOCYTES PERCENT AUTO 16 % (21-46); MONOCYTES ABSOLUTE AUTO 0.87 K/mm3 (0.16-1.47); MONOCYTES PERCENT AUTO 7 % (4-13); Mean Corpuscular HGB 28.8 pg (26.0-34.0); Mean Corpuscular HGB Conc 31.4 g/dL (31.5-36.5); Mean Corpuscular Volume 92 fL (80-100); Mean Platelet Volume 11.6 fL (9.1-12.4); NEUTROPHILS ABSOLUTE AUTO 9.69 K/mm3 (1.96-9.15); NEUTROPHILS PERCENT AUTO 74 % (41-73); Platelet Count 370 K/mm3 (150-400); RDW Standard Deviation 47.1 fL (35.1-46.3); Red Blood Cell Count 3.85 M/mm3 (4.30-5.90); White Blood Cell Count 13.07 K/mm3 (4.00-11.30)
[2020-01-23 23:31] LABS: Albumin, Blood 2.9 g/dL (3.4-5.0); Anion Gap 10 mmol/L (6-16); Blood Urea Nitrogen 40 mg/dL (8-24); Bun/Creatinine Ratio 21.3 (12.0-20.0); CO2, Blood 23 mmol/L (21-32); Calcium, Blood 8.4 mg/dL (8.5-10.1); Chloride, Blood 103 mmol/L (98-108); Creatinine, Blood 1.88 mg/dL (0.60-1.20); Glomerular Filtration Rate 38 (60-); Glucose, Blood 401 mg/dL (70-99); Phosphorus, Blood 5.1 mg/dL (2.5-4.9); Potassium, Blood 4.1 mmol/L (3.5-5.5); Sodium, Blood 136 mmol/L (136-145); Troponin I <0.015 ng/mL (0.000-0.040)
--- NOTE | 2020-01-23 23:37 | NUR ---
PATIENT TRANSFER PATIENT TRANSFERRED FROM ROOM 352 TO ICU 10 DUE TO A RAPID RESPONSE CALL FOR HYPOTENSION AND ALTERED MENTAL STATUS. SBP UPON ARRIVAL TO ROOM WAS IN THE 70S. FLUID BOLUS INFUSING. LEVOPHED STARTED PER EMAR. PATIENT IS AGITATED AND PARANOID. PIV X [address] LEVOPHED IS INFUSING THROUGH A 20 GAUGE IV IN THE FOREARM. HE IS AFERBILE. BED ALARM. CURTAIN OPEN FOR VISIBILTIY.
--- NOTE | 2020-01-23 23:40 | NUR ---
NOTIFIED PATIENT'S OF EVENTS LEADING UP TO RAPID RESPONSE CALL WELL TRANSFER TO ICU.
--- NOTE | 2020-01-24 05:08 | NUR ---
END OF SHIFT SUMMARY PATIENT WAS A RAPID RESPONSE TO ICU THIS EVENING FOR HYPOTENSION WITH SYSTOLICS IN THE 60S. BP IMPROVED FOLLOWING A 1 L NS BOLUS. LEVOPHED WAS STARTED FOR AN HOUR AND THEN STOPPED IT WAS NO LONGER NEEDED TO MAINTAIN A MAP>65. THE PATIENT HAS REMAINED CALM AND COOPERATIVE BUT DOES BECOME PARANOID AT TIMES. HE STATED, "I FEEL LIKE I'VE BEEN KIDNAPPED." HE IS RE-DIRECTABLE AND RE-ORIENTS WELL. HE DID BECOME AGITATED ONCE THIS SHIFT BUT OTHERWISE HAS REMAINED CALM. HE DOES NOT REMEMBER WHY HE IS IN THE HOSPITAL AND FORGETS QUICKLY WHEN RE-ORIENTED TO THE SITUATION. HE IS ABLE TO READ THE CLOCK AND VERBALIZE THAT IT WAS 5 AM. HE WAS TOO ALTERED TO TAKE HIS SEROQUEL THIS EVENING. HE IS DENYING PAIN BESIDES SOME ABDOMINAL CRAMPING. THE BEDSIDE BUTTON PUNCHER SHOWS NSR WITH A RATE IN THE 70S. BP HAS REMAINED STABLE SINCE LEVOPHED WAS TURNED OFF. AFEBRILE. LUNGS ARE CLEAR AND OXYGEN SATURATION IS STABLE ON ROOM AIR. HE HAS HAD SEVERAL EPISODES OF DIARRHEA. THE LAST OF WHICH WAS A MUCOUSY AND RED. PROVIDER NOTIFIED OF THIS FINDING. THE PATIENT HAS BEEN ABLE TO VOID USING THE URINAL AND HAS ALSO HAD INCONTINENT EPISODES OF URINE. THERE IS EXCORIATION ON THE BUTTOCKS, PENIS, SCROTUM, AND GROIN. BARRIER CREAM APPLIED. PIV X [address] NS INFUSING AT 100 MLS/HR.
--- NOTE | 2020-01-24 07:32 | NUR ---
REC'D BEDSIDE REPORT FROM CAMRON VICTORIA AND NOW ASSUMING CARE OF THIS PT.
--- NOTE | 2020-01-24 08:17 | NUR ---
DR GRANT IN TO ASSESS PT. UPDATED WITH PT'S STATUS. DISCUSSED INCREASING LANTUS IN LIGHT OF CONTINUED CBG'S >300. DISCUSSED HOLDING XARELTO R/T BLOOD TINGED, MUCOUSY STOOL PER NOC RN. DISCUSSED CONTINUED LOOSE STOOLS AND POTENTIAL STATUS CHANGE, PT'S BP HAS REMAINED STABLE SINCE D/C'ING LEVOPHED. NS CONT @ 100ML/HR. DR GRANT TO DISCUSS ABOVE WITH DR RAMIREZ, AWAITING NEW ORDERS.
--- NOTE | 2020-01-24 10:52 | NUR ---
REPORTED OFF TO CAMRON VILCHIS ON THE MEDICAL FLOOR, WHOM WILL ASSUME CARE ONCE PT IS TNX'D TO 352
--- NOTE | 2020-01-24 11:40 | NUR ---
PT TRANSFERRED TO [facility] VIA BED BY JERRY MARTINEZ. ALL PT MEDS/CHART/BELONGINS SENT WITH PT.
[2020-01-24 12:49] LABS: BASOPHILS ABSOLUTE AUTO 0.04 K/mm3 (0.00-0.23); BASOPHILS PERCENT AUTO 0 % (0-2); EOSINOPHILS ABSOLUTE AUTO 0.09 K/mm3 (0.00-0.68); EOSINOPHILS PERCENT AUTO 1 % (0-6); Hematocrit 32.2 % (37.0-53.0); Hemoglobin 10.1 g/dL (13.5-17.5); IMMATURE GRAN ABSOLUTE AUTO 0.07 K/mm3 (0.00-0.10); IMMATURE GRAN PERCENT AUTO 0 % (0-1); LYMPHOCYTES ABSOLUTE AUTO 1.87 K/mm3 (0.84-5.20); LYMPHOCYTES PERCENT AUTO 11 % (21-46); MONOCYTES ABSOLUTE AUTO 0.84 K/mm3 (0.16-1.47); MONOCYTES PERCENT AUTO 5 % (4-13); Mean Corpuscular HGB 28.9 pg (26.0-34.0); Mean Corpuscular HGB Conc 31.4 g/dL (31.5-36.5); Mean Corpuscular Volume 92 fL (80-100); Mean Platelet Volume 11.7 fL (9.1-12.4); NEUTROPHILS ABSOLUTE AUTO 14.21 K/mm3 (1.96-9.15); NEUTROPHILS PERCENT AUTO 83 % (41-73); Platelet Count 344 K/mm3 (150-400); RDW Coefficient Variation 14.1 % (11.7-14.2); RDW Standard Deviation 47.9 fL (35.1-46.3); White Blood Cell Count 17.12 K/mm3 (4.00-11.30)
[2020-01-24 12:59] LABS: Albumin, Blood 2.7 g/dL (3.4-5.0); Anion Gap 3 mmol/L (6-16); Blood Urea Nitrogen 32 mg/dL (8-24); Bun/Creatinine Ratio 23.4 (12.0-20.0); CO2, Blood 28 mmol/L (21-32); Calcium, Blood 8.1 mg/dL (8.5-10.1); Chloride, Blood 109 mmol/L (98-108); Creatinine, Blood 1.37 mg/dL (0.60-1.20); Glomerular Filtration Rate 55 (60-); Glucose, Blood 130 mg/dL (70-99); Phosphorus, Blood 3.7 mg/dL (2.5-4.9); Potassium, Blood 4.1 mmol/L (3.5-5.5); Sodium, Blood 140 mmol/L (136-145)
--- NOTE | 2020-01-24 19:36 | NUR ---
SHIFT SUMMARY: PATIENT TRANSFER BACK FROM ICU10 THIS SHIFT. PT ALERT; CONFUSED; CALM AND COOPERATIVE WITH CARE. TELE IN PLACE; SR IN 70s. NO C/O PAIN. INCONTINENT OF BOWEL & BLADDER; EXCORIATIONS TO BUTTOCKS; BARRIER CREAM IN PLACE. FAMILY UPDATED WITH PLAN OF CARE. AWAITING GUARDIANSHIP. REPORT GIVEN TO ONCOMING RN.
--- NOTE | 2020-01-25 06:30 | NUR ---
SHIFT SUMMARY A/O, ABLE TO MAKE NEEDS KNOWN. COOPERATIVE WITH CARE T/O SHIFT. CALLS AND ANSWERS QUESTIONS APPROPRIATELY. NO C/O PAIN/DISCOMFORT. UP WITH 1P ASSIST TO UTILIZE URINAL. FLUIDS CONTINUE TO INFUSE WITHOUT COMPLICATION @ 100 ML/HR. HYPERTENSIVE THIS AM; ALL OTHER VS WNL. APPEARED TO REST MUCH OF THE NIGHT. NO ACUTE CHANGES NOTED. BED REMAINS IN LOWEST POSITION; ALARM ON. WCTM. REPORT TO ONCOMING RN.
[2020-01-25 06:31] LABS: BASOPHILS ABSOLUTE AUTO 0.03 K/mm3 (0.00-0.23); BASOPHILS PERCENT AUTO 0 % (0-2); EOSINOPHILS ABSOLUTE AUTO 0.46 K/mm3 (0.00-0.68); EOSINOPHILS PERCENT AUTO 5 % (0-6); Hematocrit 30.7 % (37.0-53.0); Hemoglobin 9.7 g/dL (13.5-17.5); IMMATURE GRAN ABSOLUTE AUTO 0.04 K/mm3 (0.00-0.10); IMMATURE GRAN PERCENT AUTO 0 % (0-1); LYMPHOCYTES ABSOLUTE AUTO 2.26 K/mm3 (0.84-5.20); LYMPHOCYTES PERCENT AUTO 22 % (21-46); MONOCYTES ABSOLUTE AUTO 0.71 K/mm3 (0.16-1.47); MONOCYTES PERCENT AUTO 7 % (4-13); Mean Corpuscular HGB 28.7 pg (26.0-34.0); Mean Corpuscular HGB Conc 31.6 g/dL (31.5-36.5); Mean Corpuscular Volume 91 fL (80-100); Mean Platelet Volume 11.5 fL (9.1-12.4); NEUTROPHILS ABSOLUTE AUTO 6.67 K/mm3 (1.96-9.15); NEUTROPHILS PERCENT AUTO 66 % (41-73); Platelet Count 339 K/mm3 (150-400); RDW Standard Deviation 46.7 fL (35.1-46.3); Red Blood Cell Count 3.38 M/mm3 (4.30-5.90); White Blood Cell Count 10.17 K/mm3 (4.00-11.30)
[2020-01-25 06:49] LABS: Anion Gap 5 mmol/L (6-16); Blood Urea Nitrogen 25 mg/dL (8-24); Bun/Creatinine Ratio 20.7 (12.0-20.0); CO2, Blood 25 mmol/L (21-32); Calcium, Blood 8.1 mg/dL (8.5-10.1); Chloride, Blood 111 mmol/L (98-108); Creatinine, Blood 1.21 mg/dL (0.60-1.20); Glomerular Filtration Rate >60 (60-); Glucose, Blood 142 mg/dL (70-99); Potassium, Blood 3.9 mmol/L (3.5-5.5); Sodium, Blood 141 mmol/L (136-145)
--- NOTE | 2020-01-25 18:31 | NUR ---
SHIFT SUMMARY PT TOOK A SHOWER TODAY AND WORKED WITH PT/OT THIS SHIFT. PT HAS BEEN UP IN THE CHAIR TODAY. PT HAS A GOOD APPETITE. NO COMPLAINTS OF PAIN OR SHORTNESS OF BREATH. PT DID REFUSE HIS XARELTO THIS SHIFT AND DR. RAMIREZ/DR. GRANT WAS NOTIFIED BY THIS RN. NO ACUTE CHANGES AT THIS TIME. CALL LIGHT IN REACH. WILL CONTINUE MONITOR AND REPORT TO ONCOMING RN.
--- NOTE | 2020-01-26 04:03 | NUR ---
PT WOKE UP FROM SLEEP AROUND 0300 VERY CONFUSED. STATING HE IS ALONE IN THE HOSPITAL AND ABANDONED. HIS GOWN IS SWEATY. CBG 166. ASSISTED W/GOWN CHANGE AND W/TOILETING. INFORMED PT OF THE TIME, BUT INSISTS ON CALLING HIS . ASSISTED W/DIALING HER NUMBER. PT FEELING NAUSEAUS AT THIS TIME BUT REFUSING ALL OFFERED INTERVENTIONS. WILL CONT TO MONITOR.
--- NOTE | 2020-01-26 05:33 | NUR ---
SHIFT SUMMARY: VSS. AFEB. A/O TO SELF, PLACE, AND FAMILY. DISORIENTED TO SITUATION. ANXIOUS AND AGITATED TONIGHT. RAISED VOICE AT STAFF. CONFUSED. NO ATTEMPTS TO SELF T/F BUT SITTING UP INDEPENDENTLY AT EDGE OF BED. REMOVED TELE LEADS AND REFUSING TO REPLACE THEM UNTIL AFTER HE SPEAKS WITH THE HOSPITALIST THIS MORNING. CONT TO STATE HE IS ALL ALONE AND ABANDONED AND NO ONE IS HELPING HIM DESPITE REASSURANCE TO PT OF STAFF PRESENCE AND REMINDERS TO USE CALL BUTTON FOR ASSISTANCE. REPORTS CONTINUED NAUSEA WELL BUT REFUSING ALL OFFERS OF INTERVENTIONS. STATES THAT HE WANTS TO GO HOME AND WILL BE CALLING HIS DAUGHTER TO PICK HIM UP. WILL CONT TO MONITOR. BED ALARM ON.
--- NOTE | 2020-01-26 06:31 | NUR ---
CALL TO HOSPITALIST DR. LEARY TO REPORT PT ONGOING REFUSAL TO WEAR QUALITY COMPLIANCE COORDINATOR. WILL CONT TO ENCOURAGE PT TO ALLOW REPLACEMENT OF QUALITY COMPLIANCE COORDINATOR.
[2020-01-26 08:27] LABS: BASOPHILS ABSOLUTE AUTO 0.06 K/mm3 (0.00-0.23); BASOPHILS PERCENT AUTO 1 % (0-2); EOSINOPHILS ABSOLUTE AUTO 0.33 K/mm3 (0.00-0.68); EOSINOPHILS PERCENT AUTO 4 % (0-6); Hemoglobin 9.9 g/dL (13.5-17.5); IMMATURE GRAN ABSOLUTE AUTO 0.04 K/mm3 (0.00-0.10); IMMATURE GRAN PERCENT AUTO 0 % (0-1); LYMPHOCYTES ABSOLUTE AUTO 1.99 K/mm3 (0.84-5.20); LYMPHOCYTES PERCENT AUTO 21 % (21-46); MONOCYTES ABSOLUTE AUTO 0.59 K/mm3 (0.16-1.47); MONOCYTES PERCENT AUTO 6 % (4-13); Mean Corpuscular HGB 28.4 pg (26.0-34.0); Mean Corpuscular HGB Conc 30.9 g/dL (31.5-36.5); Mean Corpuscular Volume 92 fL (80-100); Mean Platelet Volume 11.5 fL (9.1-12.4); NEUTROPHILS ABSOLUTE AUTO 6.46 K/mm3 (1.96-9.15); NEUTROPHILS PERCENT AUTO 68 % (41-73); Platelet Count 376 K/mm3 (150-400); RDW Standard Deviation 46.6 fL (35.1-46.3); Red Blood Cell Count 3.49 M/mm3 (4.30-5.90); White Blood Cell Count 9.47 K/mm3 (4.00-11.30)
[2020-01-26 08:42] LABS: Anion Gap 4 mmol/L (6-16); Blood Urea Nitrogen 21 mg/dL (8-24); Bun/Creatinine Ratio 17.5 (12.0-20.0); CO2, Blood 29 mmol/L (21-32); Calcium, Blood 8.5 mg/dL (8.5-10.1); Chloride, Blood 110 mmol/L (98-108); Glomerular Filtration Rate >60 (60-); Glucose, Blood 109 mg/dL (70-99); Potassium, Blood 3.7 mmol/L (3.5-5.5); Sodium, Blood 143 mmol/L (136-145)
--- NOTE | 2020-01-26 15:55 | NUR ---
SHIFT SUMMARY PATIENT DENIES PAIN, NAUSEA, AND SHORTNESS OF BREATH. PATIENT UP SBA W/FWW AND GAIT BELT. PATIENT WORKED WITH PT AND OT TODAY. PATIENT ANSWERED ORIENTATION QUESTIONS APPROPRIATELY TODAY BUT ALSO WAS LABILE IN MOOD AND JUMPED FROM SUBJECT TO SUBJECT. THIS MORNING PATIENT ASKED FOR BANKING INFORMATION REGARDING HIS [employer] UNION AND INFORMATION REGARDING THE WITH [employer]. WHEN NOT PROVIDED THE INFORMATION IN WHAT HE STATED HE FELT WAS A TIMELY MANNER PATIENT STATED HE WOULD "JUST KILL HIMSELF HERE." DR. GOMES CALLED, NEW ORDERS FOR MODERATE SUICIDE PRECAUTIONS GIVEN. PATIENT'S AT BEDSIDE THIS AFTERNOON. PATIENT DENIES ACTIVE SUICIDAL IDEATION THIS EVENING.
--- NOTE | 2020-01-26 18:02 | NUR ---
Spiritual care note: Per pt's request, I visited Mr. Melendez. He was talkative and spoke very quickly. He moved from topic to topic in a fast pace. 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 He tried very hard to manipulate me to bring him a regular-sized phone and TV cord. Each of these were shortened due to his suicide threats. I informed him I was unable to do anything to help with these things, and he became dismissive. I will remain available.
--- NOTE | 2020-01-27 04:36 | NUR ---
CARPENTER ASSISTANT INSTALLER SUMMARY PT COOPERATIVE WITH CARE DURING THIS SHIFT. APPEARED TO BE RESTING MOST OF THE NIGHT. NO ACUTE DISTRESS NOTED. DENIES PAIN OR DISCOMFORT. VSS. WILL CONTINUE TO MONITOR AND REPORT TO ONCOMING RN.
--- NOTE | 2020-01-27 18:17 | NUR ---
SHIFT SUMMARY PATIENT DENIES PAIN, NAUSEA, AND SHORTNESS OF BREATH. PATIENT ANSWERS ORIENTATION QUESTIONS CORRECTLY BUT REMAINS FORGETFUL AND CONFUSED AT TIMES. PATIENT DENIES SUICIDAL IDEATION TODAY. PATIENT UP SBA W/FWW. SKIN BREAKDOWN ON BUTTOCKS CLEANED AND NEW FOAM DRESSING APPLIED. PURSUING GUARDIANSHIP.
--- NOTE | 2020-01-28 06:48 | NUR ---
SHIFT SUMMARY PATIENT ALERT BUT HAVING SOME DELUSIONAL THOUGHTS OF WANTING TO CALL DMITRI JORDANSTANLEY BECAUSE HE ISN'T GETTING THE CARE THAT HE WANTS. THIS RN TALKED TO THE PATIENT ABOUT HIS CONCERNS AND HE CALMED DOWN AND WAS HAPPY THAT HE WAS HEARD. IV IN PATIENT'S FOREARM WAS LEAKING SO NEW IV PLACED IN HIS RIGHT FOREARM WHICH IS PATENT AND FLUSHED. BED IN LOWEST POSITION WITH WHEELS LOCKED AND ALARM ON. CALL LIGHT WITHIN REACH. REPORT GIVEN TO ONCOMING RN.
--- NOTE | 2020-01-28 18:10 | NUR ---
SHIFT SUMMARY AMBULATING IN HALLWAY WITH P.T. THIS AFTERNOON USING A FWW. USING A URINAL WHEN IN BED. AT BEDSIDE THIS MORNING. PT HAS BEEN COOPERATIVE AND PLEASANT TODAY. KEEPS HIMSELF OFF HIS COCCYX DUE TO WOUND. DRESSING INTACT TO L LATERAL HEEL.
--- NOTE | 2020-01-29 04:35 | NUR ---
POT FILLER SUMMARY NO ACUTE CHANGES THIS SHIFT. PT AAOX3 BUT IS FORGETFUL AND DOES HAVE SOME INTERMITTENT CONFUSION. PT HAS BEEN MOSTLY COOPERATIVE AND PLEASANT BUT DOES BECOME IRRITABLE FOR NO APPARENT REASON ON OCCASION. DENIES PAIN, SOB, N/V. ATTEMPTED TO ASSIST PT TO THE BATHROOM USING FWW, PT MADE IT HALF WAY BEFORE BECOMING VERY WEAK AND HAD TO BE HELD UP AND PLACED ON BSC INSTEAD. PT SEEMED A BIT MORE LETHARGIC AT THIS TIME AND PT STATED "I AM REALLY TIRED AND OUT OF HIT FOR AWHILE AFTER I FIRST WAKE UP. IT'S BEEN THAT WAY MY WHOLE LIFE". PT HAS USED THE CALL LIGHT WITHOUT ISSUE. PT REMAINS IN MODERATE SI PRECAUTIONS ALTHOUGH HE DENIES SI AT THIS TIME. VSS, WILL CONTINUE TO MONITOR.
--- NOTE | 2020-01-29 19:30 | NUR ---
SHIFT SUMMARY: NO ACUTE EVENTS TO REPORT THIS SHIFT. PT ALERT; HX CVA-CONFUSION; OCC IRRITABLE; COOPERATIVE WITH CARE. MODERATE SI PRECAUTIONS c CAMERA FOR SAFETY. COCCYX RED; MEPILEX & BARRIER CREAM IN PLACE; C/O PAIN-REFUSED PAIN MEDS. AWAITING GUARDIANSHIP. REPORT GIVEN TO ONCOMING RN.
[2020-01-30 04:36] LABS: BASOPHILS ABSOLUTE AUTO 0.11 K/mm3 (0.00-0.23); BASOPHILS PERCENT AUTO 1 % (0-2); EOSINOPHILS ABSOLUTE AUTO 0.45 K/mm3 (0.00-0.68); EOSINOPHILS PERCENT AUTO 5 % (0-6); Hematocrit 31.2 % (37.0-53.0); Hemoglobin 10.1 g/dL (13.5-17.5); IMMATURE GRAN ABSOLUTE AUTO 0.03 K/mm3 (0.00-0.10); IMMATURE GRAN PERCENT AUTO 0 % (0-1); LYMPHOCYTES ABSOLUTE AUTO 2.34 K/mm3 (0.84-5.20); LYMPHOCYTES PERCENT AUTO 25 % (21-46); MONOCYTES ABSOLUTE AUTO 0.62 K/mm3 (0.16-1.47); MONOCYTES PERCENT AUTO 7 % (4-13); Mean Corpuscular HGB 29.2 pg (26.0-34.0); Mean Corpuscular HGB Conc 32.4 g/dL (31.5-36.5); Mean Corpuscular Volume 90 fL (80-100); Mean Platelet Volume 11.4 fL (9.1-12.4); NEUTROPHILS ABSOLUTE AUTO 5.98 K/mm3 (1.96-9.15); NEUTROPHILS PERCENT AUTO 63 % (41-73); Platelet Count 372 K/mm3 (150-400); RDW Coefficient Variation 13.8 % (11.7-14.2); RDW Standard Deviation 45.3 fL (35.1-46.3); Red Blood Cell Count 3.46 M/mm3 (4.30-5.90); White Blood Cell Count 9.53 K/mm3 (4.00-11.30)
[2020-01-30 05:01] LABS: Anion Gap 8 mmol/L (6-16); Blood Urea Nitrogen 23 mg/dL (8-24); Bun/Creatinine Ratio 20.7 (12.0-20.0); CO2, Blood 25 mmol/L (21-32); Calcium, Blood 8.6 mg/dL (8.5-10.1); Chloride, Blood 109 mmol/L (98-108); Creatinine, Blood 1.11 mg/dL (0.60-1.20); Glomerular Filtration Rate >60 (60-); Glucose, Blood 264 mg/dL (70-99); Potassium, Blood 3.8 mmol/L (3.5-5.5); Sodium, Blood 142 mmol/L (136-145)
--- NOTE | 2020-01-30 05:45 | NUR ---
DIRECTOR OF DONOR RELATIONS SUMMARY NO ACUTE CHANGES THIS SHIFT. PT AAOX3 WITH SOME INTERMITTENT CONFUSION. USES URINAL AT TIMES BUT IS MOSTLY INCONTINENT. 1 INCONTINENT BM TONIGHT WELL. REDNESS TO PAITENCE AREA, APPLYING BARRIER CREAM NEEDED. PT DENIES PAIN, SOB, N/V. VSS, WILL CONTINUE TO MONITOR.
--- NOTE | 2020-01-30 18:33 | NUR ---
SHIFT SUMMARY- PT IS ALERT, PLESANT AND COOPERATIVE, HE HAS SOME INTERMITENT CONFUSION. DISCUSSED DISCHARGE PLAN WITH HIM AND HE QUICKLY FORGOT AND REDISCUSSED PLAN AND WHAT DAY IT WAS. HE IS EATING AND DRINKING WELL. HIS WAS AT BEDSIDE THIS MORNING. CHANGED THE MEPLEX ON HIS COCCYX.
--- NOTE | 2020-01-31 06:28 | NUR ---
SHIFT SUMMARY PT IS A 64 Y/O MALE, ADMITTED FOR ACUTE METABOLIC ENCEPHALOPATHY. HE IS A&O X 2-3, AND A 2PA C FWW. PER REPORT, PT WAS MEDICATED WITH PRN SEROQUEL AT DINNERTIME, AND DID NOT WANT HIS BEDTIME DOSE. PT SLEPT WELL THROUGH THE NIGHT. VITAL SIGNS STABLE. NO ACUTE CHANGES IN PT CONDITION NOTED. WILL CONTINUE TO MONITOR AND TREAT PER EMAR UNTIL HAND OFF TO DAY SHIFT RN.
--- NOTE | 2020-01-31 08:54 | NUR ---
Patient did not eat breakfast this shift due to not feeling well. He stated that his stomach was not feeling well. RN notified.
--- NOTE | 2020-01-31 17:07 | NUR ---
SHIFT SUMMARY- PT IS ALERT, PLESANT AND COOPERATIVE. HE HAS SOME INTERMITENT CONFUSION. AT BEDSIDE THIS AFTERNOON. PTS APPETITE IS POOR. HE WORKED WITH PHYSICAL THERAPY THIS MORNING AND TOLERATED WELL.
--- NOTE | 2020-01-31 20:43 | NUR ---
ALERTED OF CBG NOW 405 AFTER GRADUALLY TRENDING UPWARD FOLLOWING NEED TO HOLD PT'S PREVIOUS COUPLE SCHEDULED LANTUS DOSES (PER RN REPORT). MD RX'D 5 UNITS HUMALOG NOW X1 IN ADDITION TO SCHEDULED NOCTE LANTUS. WILL REEVALUATE CBG IN 2 HOURS INSTRUCTED.
--- NOTE | 2020-01-31 23:05 | NUR ---
CBG RECHECKED, NOW 351. DISCUSSED W/IT ANALYST WHO DENIED NEEDING TO CALL HOSPITALIST SINCE CBG IS TRENDING DOWNWARD AFTER RECIEVING LANTUS AND X1 DOSE OF HUMALOG AT HS. WILL MONITOR FOR S/S HYPO/HYPERGLYCEMIA.
--- NOTE | 2020-02-01 05:33 | NUR ---
SUMMARY: PT A/OX3 AND PLEASANT/COOPERATIVE W/CARE BUT CAN BECOME IRRITABLE AND ANXIOUS WHEN CARE NEEDS AREN'T MET IMMEDIATELY. HE HAS SOME INTERMITTENT CONFUSION AND IS CONTANKEROUS AT TIMES. MEMPILEX REMAINS C/D/I TO ANKLE AND COCCYX AND CREAM APPLIED TO EXCORIATED PATIENCE AREA. SCATTERED SCABS NOTED TO EXT'S. CBG'S WERE ELEVATED THIS SHIFT AFTER LANTUS WAS HELD X2 DOSES ON PREVIOUS SHIFTS FOR HYPOGLYCEMIA/NOT EATING. APPETITE HAD BEEN BETTER DURING DAY SHIFT THOUGH AND CBG'S TRENDED UPWARD DESPITE HUMALOG AC COVERAGE. SCHEDULED HS LANTUS WAS RECIEVED ALONG W/5 UNITS X1 HUMALOG FOR CBG 405 WHICH IMPROVED TO 351. NO ACUTE CHANGES, VSS/AFEBRILE. CAMERA MONITORING IN PLACE FOR MODERATE SI THOUGH PT DENIES CURRENT RISK TO SELF. WCTM/REPORT TO DAY RN.
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
--- NOTE | 2020-02-01 15:04 | NUR ---
PATIENT IS ALERT AND ORIENTED AND COOPERATIVE WITH CARE. HE IS IN A PLEASANT MOOD TODAY. HIS CAME TO VISIT HIM. COMPLAINS OF ITCHING IN THE PATIENCE AREA. NYSTATIN POWDER ORDERED AND APPLIED TO THE PATIENT'S PATIENCE AREA. COMPLAINS OF NAUSEA, TREATED PER EAR. WILL CONTINUE TO MONITOR
--- NOTE | 2020-02-01 17:06 | NUR ---
PATIENT IS ALERT AND ORIENTED AND COOPERATIVE WITH CARE. NO COMPLAINTS OF PAIN. PATIENT HAS SPOKEN WITH HIS OVER THE PHONE TODAY. HE WORKED WITH PT. NO NEW CHANGES THIS SHIFT, WILL CONTINUE TO MONITOR
--- NOTE | 2020-02-02 06:23 | NUR ---
SUMMARY: PT MOSTLY ORIENTED BUT GETS MORE CONFUSED LATER IN THE SHIFT AND AWOKE CALLING INTO HALLS W/REQUEST TO CALL HIS , GO HOME AND FOR HER TO COME GET HIM. HE CALMED AND REORIENTED EASILY W/EXPLANATIONS. HE'S BEEN PLEASANT AND COOPERATIVE W/CARE BUT CAN BE CONTANKEROUS AT TIMES. PT USES CALL LIGHT APPROPRIATELY MAJORITY OF THE TIME EXCEPT IN MOMENTS OF CONFUSION. BED ALARM ON FOR FALL RISK BUT PT MADE NO ATTEMPTS OOB BY SELF. HE USED THE URINAL W/ASSIST AND HAD ATTENDS CHANGED PRN FOR INCONTINENCE. NYSTATIN APPLIED TO PATIENCE AREA AND MEPILEX REMAINS C/D/I TO SORE ON COCCYX. REPOSITIONING ENCOURAGED AND PT ASSISTS TO TURN SELF IN BED. CAMERA MONITORING IN PLACE THOUGH PT EXPRESSES NO SI AND RISK COULD LIKELY BE REEVAULATED. NO ACUTE CHANGES, VSS/AFEBRILE. PT AWAITING GUARDIANSHIP AND PLACEMENT. KEEGAN AND REPORT TO DAY RN.
--- NOTE | 2020-02-02 15:46 | NUR ---
SUICIDE ASSESMENT AND PREVENTION ORDER D/C PER DR CRUZ, VERBAL ORDER TAKEN
--- NOTE | 2020-02-02 19:05 | NUR ---
ASSUMED CARE RECEIVED REPORT FROM CAMRON ZENG. ASSUMED CARE OF PT. IN NO ACUTE DISTRESS AT THIS TIME, SPEAKING TO ON TELEPHONE. RESPS EVEN AND UNLABORED. PT ASKING RN ABOUT HIS BEDTIME MEDICATIONS. REASSURED AND RE-DIRECTED PT. CALL LIGHT, POSSESSIONS IN REACH, BED IN LOW POSITION WITH ALARM ON. ENVIRONMENT FREE FROM HARMFUL OBJECTS. WILL CONTINUE TO MONITOR.
--- NOTE | 2020-02-02 19:43 | NUR ---
PT SUMMARY PT MOSTLY ORIENTED BUT CONFUSSED OCCASIONALLY, PT IS ALSO CONFUSSED OF DATE AND TIME. PT BECAME MORE AGITATED TOWARDS THE END OF THE SHIFT REQUESTING TO CALL HIS . PT HAD A POOR APPETITE AND DECLINED MEALS, MEDICATED FOR NAUSEA X1. PT DENIED PAIN THIS SHIFT. PT HAS BED ALARM ON AND CALL LIGHT WITH IN REACH. WILL COUNTINUE TO MONITOR AND REPROT TO JULIEN RN.
--- NOTE | 2020-02-03 07:00 | NUR ---
SHIFT SUMMARY PT HAS HAD NO ACUTE CHANGES IN STATUS T/O NIGHT, SLEPT T/O. CALLED APPROPRIATELY FOR NEEDS. VSS. PT CONTINUES TO AWAIT PLACEMENT. CALL LIGHT, POSSESSIONS IN REACH, BED IN LOWEST POSITION WITH ALARMS ON. ENVIRONMENT FREE FROM HARMFUL OBJECTS. REPORT GIVEN TO CAMRON DAVIS.
--- NOTE | 2020-02-03 10:54 | NUR ---
T/C placed to Aarti, the spouse of the principal, per the request of case management. Clarification provided to Aarti regarding the guandianship process, its technical filing requirements, and the standard court procedure to render [facility]. Her main concern was the possiblity of an outcome in which her would retain his civil privileges, and she would be disallowed from acting in his best interest to accomodate for both placement and ongoing care needs. I assured her that the medical evidence, including the capacity evaluation from the Psychiatrist, and the hospitalist' clinical reports, along with the court visitor interview activity, would support a positive judgement on the awarding of guardianship rights to the filer. Aarti expressed relief and appreciation for the education and support. Thank you for this referral. Hardeep Childers Th.D. Society Reporter, [place] [employer]
--- NOTE | 2020-02-03 17:30 | NUR ---
SHIFT SUMMARY- PT A/O TO PERSON AND PLACE. PT MEDICATED WITH ZOFRAN THIS AM FOR NAUSEA. POOR ORAL INTAKE THIS SHIFT, PT REPORTS CHRONIC NAUSEA. LS CLEAR, ON RA. 1-2 ASSIST OUT OF BED, PT DOES LEAN TO THE LEFT AT TIMES. PT REPORTS DIZZINESS WITH SITTING UP. PRESSURE ULCER TO SACRAL AREA, NEW PHOTO TAKEN AND DRESSING APPLIED. SPOUSE IN TO SEE PT TODAY, SPOUSE WORKING ON GETTING THE HOUSE READY FOR PT TO COME HOME. NO OTHER ACUTE CHANGES THIS SHIFT.
--- NOTE | 2020-02-04 05:06 | NUR ---
SHIFT SUMMARY- PT. A&OX2. HAD NO ACUTE EVENTS OVERNIGHT. ASLEEP T/O MOST OF THE NIGHT, NO APPARENT DISTRESS NOTED. SCHEDULED MEDS GIVEN W/O DIFFICULTY. C/O NA LAST NIGHT. ZOFRAN GIVEN PER EMAR WITH GOOD EFFECT. NO OTHER COMPLAINTS T/O THE SHIFT. WILL CONT TO MONITOR.
--- NOTE | 2020-02-04 08:37 | NUR ---
GLUCOSE- PT NOTED TO HAVE A GLUCOSE OF 48 THIS AM. PT AWAKE AND CONVERSATING, FOOD AND APPLE JUICE GIVEN TO PT. GLUCOSE DID INCREASE TO 68. LANTUS AND HUMALOG HELD THIS AM. SPOKE WITH DR GRANT AND SHE REPORTS SHE WILL ADJUST EVENING LANTUS DOSE.
--- NOTE | 2020-02-04 17:30 | NUR ---
SHIFT SUMMARY- PT A/O X2 PERSON AND PLACE. PT MEDICATED X1 WITH TYLENOL FOR RIB PAIN. LS CLEAR, ON RA. PT REPORTS NAUSEA AT TIMES, PRN ZOFRAN GIVEN X1. PT WAS ABLE TO EAT A SMALL AMOUNT OF LUNCH THAT SPOUSE BROUGHT IN. 1 ASSIST UP TO CHAIR. NO BM TODAY, DR GRANT NOTIFIED OF NO BM SINCE 01/28. PT WITH BLOOD GLUCOSE OF 48 THIS AM, EVENING LANTUS ADJUSTED. PT REQUESTING MEDICATIONS T/O THE DAY TO PUT HIM TO SLEEP, PT EDUCATED THAT WE DO NOT GIVE MEDICATIONS DURING THE DAY TO PUT PT TO SLEEP BUT HE DOES HAVE MEDICATIONS AVAILABLE AT BEDTIME TO HELP SLEEP. PT HAS BEEN PLEASANT AND COOPERATIVE T/O THE DAY, PT NEEDS ENCOURAGEMENT TO REPOSITION AND GET OUT OF BED. MEPILEX TO SACRAL PRESSURE ULCER C/D/I. PLAN FOR POSSIBLE D/C HOME WITH SPOUSE ON SATURDAY AFTER HOUSE IS READY. NO OTHER ACUTE CHANGES THIS SHIFT.
--- NOTE | 2020-02-05 06:36 | NUR ---
SHIFT SUMMARY- PT. ANXIOUS LAST NIGHT AND C/O CHEST BURNING, REQUESTING TYLENOL. MEDICATED PER EMAR WITH MINIMAL EFFECT. COMPLAINED CP WORSEN. NOTIFIED HOSPITALIST DR. BOWENS. ORDERS FOR EKG, TROP, AND NITRO SL GIVEN. EKG AND TROP WNL. PT. EXPRESSED FEELING SOME RELIEF WITH THE NITRO. PT. HAD SOME CONFUSION W/VISUAL HALLUCINATIONS. ATTEMPTED TO GET OOB A FEW TIMES. ABLE TO REDIRECT AND ASSISTED BACK INTO BED W/O DIFFICULTY. APPEARED TO HAVE SLEPT COMFORTABLY THE REST OF THE NIGHT. NO APPARENT DISTRESS NOTED. CALL LIGHT WITHIN REACH, SIDE RAILS UPX2, AND BED ALARM ON FOR SAFETY. WILL CONT TO MONITOR.
[2020-02-05] MEDS ORDERED: DILT180 PO (15:48)
[2020-02-05] MEDS ORDERED: QUET200 PO (15:48)
[2020-02-05] MEDS ORDERED: XARELTO20 MG PO (15:50)
--- NOTE | 2020-02-05 16:30 | NUR ---
Discharge Summary Discharged to home with home health. Reviewed discharge paperwork over the phone with because she was not present at [facility] from hospital and patient has dementia and is forgetful. Meds were faxed to [facility] pharmacy. Answered questions to Aarti'vishal johnson. [facility] to call and set up f/u appointment. [facility] to transport home. IV removed, WNL. Personal belongings sent home with patient. Patient has not had bowel movement for 6 days. Discussed this with patient and he stated it was normal for him. This RN offered stool softner, but patient declined stating he gets diarrhea from any laxative. Dr. Parks notified. No new order. Medicated once for L rib pain r/t "fall on cement in the garage" with good relief.
== END 2020-02-05 16:30 | disposition home health service (06) | DRG 71 ==
LOC: ER 19:19 → ICUW 22:56 → MEDS 22:56 → ICUE 22:56 → MEDS 01-14 16:26 → ICUW 01-23 22:42 → MEDS 01-24 11:40
PROVIDERS: Emergency Medicine; Family Medicine; Hospitalist; Internal Medicine; ADMIT Family Medicine
DX: G93.41 Metabolic encephalopathy (principal); N17.9 Acute kidney failure, unspecified; K86.1 Other chronic pancreatitis; D64.9 Anemia, unspecified; I48.91 Unspecified atrial fibrillation; E11.69 Type 2 diabetes mellitus with other specified complication; I10 Essential (primary) hypertension; I95.9 Hypotension, unspecified; E87.6 Hypokalemia; E86.0 Dehydration; I65.29 Occlusion and stenosis of unspecified carotid artery; R15.9 Full incontinence of feces; F03.90 Unspecified dementia, unspecified severity, without behavioral disturbance, psychotic disturbance, mood disturbance, and anxiety; Z86.73 Personal history of transient ischemic attack (TIA), and cerebral infarction without residual deficits; Z79.4 Long term (current) use of insulin
CPT/HCPCS: 36415; 36600; 51702; 62270; 70450; 70496; 70498; 71045; 80047; 80048; 80053; 80069; 81001; 82140; 82803; 82945; 82947; 83605; 83690; 83735; 84157; 84484; 85014; 85025; 87040; 87070; 87205; 87483; 89051; 93005; 93010; 93306; 96365-59; 96368; 96375-59; 96376-59; 97110; 97112; 97116; 97162; 97166; 97168; 97530; 97535; 99285-25; A9270; A9270-GY; G0480; J0290; J0696; J1630; J1650; J1815; J1956; J2060; J2405; J2550; J2765; J3411; J3480; J7030; J7040; J7060; J7120; Q9967; U0003

== ENCOUNTER 2020-07-15 08:21 | Emergency (ER) | payer OTHER, MEDICARE ==
[~2020-07-15] VITALS: Ht 182.9 cm; Wt 79.4 kg
[~2020-07-15 08:21] MED LIST: ASPI325 PO; Amoxicillin500 MG PO; CALCITONIN-SAL3.7 M1; GVOKE HYPO0.5 MG/0.2 SQ; LIDO5TO TOP; LIDO700A20 TOP
[2020-07-15 08:59] LABS: BASOPHILS ABSOLUTE AUTO 0.08 K/mm3 (0.00-0.23); BASOPHILS PERCENT AUTO 1 % (0-2); EOSINOPHILS ABSOLUTE AUTO 0.34 K/mm3 (0.00-0.68); EOSINOPHILS PERCENT AUTO 3 % (0-6); Hematocrit 25.7 % (37.0-53.0); Hemoglobin 7.7 g/dL (13.5-17.5); IMMATURE GRAN ABSOLUTE AUTO 0.08 K/mm3 (0.00-0.10); IMMATURE GRAN PERCENT AUTO 1 % (0-1); LYMPHOCYTES ABSOLUTE AUTO 1.72 K/mm3 (0.84-5.20); LYMPHOCYTES PERCENT AUTO 16 % (21-46); MONOCYTES ABSOLUTE AUTO 0.61 K/mm3 (0.16-1.47); MONOCYTES PERCENT AUTO 6 % (4-13); Mean Corpuscular HGB 26.6 pg (26.0-34.0); Mean Corpuscular Volume 89 fL (80-100); Mean Platelet Volume 11.2 fL (9.1-12.4); NEUTROPHILS ABSOLUTE AUTO 8.03 K/mm3 (1.96-9.15); NEUTROPHILS PERCENT AUTO 74 % (41-73); Platelet Count 457 K/mm3 (150-400); RDW Coefficient Variation 15.5 % (11.7-14.2); RDW Standard Deviation 50.4 fL (35.1-46.3); Red Blood Cell Count 2.89 M/mm3 (4.30-5.90); White Blood Cell Count 10.86 K/mm3 (4.00-11.30)
[2020-07-15 09:15] LABS: Albumin, Blood 2.9 g/dL (3.4-5.0); Albumin/Globulin Ratio 0.6 (0.8-1.8); Bilirubin, Total 0.2 mg/dL (0.1-1.0); Bun/Creatinine Ratio 15.8 (12.0-20.0); Calcium, Blood 8.7 mg/dL (8.5-10.1); Creatinine, Blood 1.52 mg/dL (0.60-1.20); Total Protein, Blood 7.9 g/dL (6.4-8.2)
[2020-07-15 11:23] LABS: Source, Urine Voided
[2020-07-15 11:26] LABS: Bilirubin, Urine Neg (Neg); Blood, Urine 2+ (Neg); Glucose Qualitative, Urine Neg (Neg); Ketones, Urine Neg (Neg); Leukocyte Esterase, Urine 3+ (Neg); Nitrite, Urine Neg (Neg); Protein, Urine 2+ (Neg); Urobilinogen, Urine NORM (Normal)
[2020-07-15 11:33] LABS: Appearance, Urine Clear (Clear); Color, Urine Pale Yellow (P-Yellow)
[2020-07-15 11:35] LABS: White Blood Cells, Urine 25-50 /hpf (0-5)
[2020-07-15 11:36] LABS: Bacteria Few /hpf; Squamous Epithelial Cells Not Seen /hpf (Few)
== END 2020-07-15 11:58 | disposition home or self-care (01) ==
LOC: ER 08:21
PROVIDERS: Emergency Medicine
DX: E11.65 Type 2 diabetes mellitus with hyperglycemia (principal); D64.9 Anemia, unspecified; Z79.4 Long term (current) use of insulin; Z79.01 Long term (current) use of anticoagulants; Z79.899 Other long term (current) drug therapy
CPT/HCPCS: 36415; 70450; 72125; 80053; 81001; 82272; 82947; 85025; 87077; 87086; 87147; 87186; 93005; 93010; 99284-25

== ENCOUNTER 2020-10-21 13:07 | Inpatient (IN) | payer OTHER, MEDICARE ==
[~2020-10-21] VITALS: Ht 182.9 cm; Wt 94.4 kg
[2020-10-21 14:59] LABS: BASOPHILS ABSOLUTE AUTO 0.07 K/mm3 (0.00-0.23); BASOPHILS PERCENT AUTO 1 % (0-2); EOSINOPHILS ABSOLUTE AUTO 0.15 K/mm3 (0.00-0.68); EOSINOPHILS PERCENT AUTO 2 % (0-6); Hematocrit 26.2 % (37.0-53.0); IMMATURE GRAN ABSOLUTE AUTO 0.03 K/mm3 (0.00-0.10); IMMATURE GRAN PERCENT AUTO 0 % (0-1); LYMPHOCYTES ABSOLUTE AUTO 1.13 K/mm3 (0.84-5.20); LYMPHOCYTES PERCENT AUTO 15 % (21-46); MONOCYTES ABSOLUTE AUTO 0.42 K/mm3 (0.16-1.47); MONOCYTES PERCENT AUTO 5 % (4-13); Mean Corpuscular HGB 27.4 pg (26.0-34.0); Mean Corpuscular HGB Conc 30.5 g/dL (31.5-36.5); Mean Corpuscular Volume 90 fL (80-100); Mean Platelet Volume 12.1 fL (9.1-12.4); NEUTROPHILS ABSOLUTE AUTO 6.02 K/mm3 (1.96-9.15); NEUTROPHILS PERCENT AUTO 77 % (41-73); Platelet Count 343 K/mm3 (150-400); RDW Coefficient Variation 15.4 % (11.7-14.2); RDW Standard Deviation 50.5 fL (35.1-46.3); Red Blood Cell Count 2.92 M/mm3 (4.30-5.90); White Blood Cell Count 7.82 K/mm3 (4.00-11.30)
[2020-10-21 15:02] LABS: Source, Urine Clean Catch
[2020-10-21 15:05] LABS: Appearance, Urine Clear (Clear); Bilirubin, Urine Neg (Neg); Blood, Urine 3+ (Neg); Color, Urine Yellow (P-Yellow); Glucose Qualitative, Urine 4+ (Neg); Ketones, Urine Neg (Neg); Leukocyte Esterase, Urine 3+ (Neg); Nitrite, Urine Neg (Neg); Protein, Urine 3+ (Neg); Specific Gravity, Urine 1.015 (1.003-1.022); Urobilinogen, Urine NORM (Normal)
[2020-10-21 15:18] LABS: Alanine Aminotransfer (ALT/SGP 25 U/L (12-78); Albumin, Blood 2.8 g/dL (3.4-5.0); Albumin/Globulin Ratio 0.6 (0.8-1.8); Alk Phos 103 U/L (50-136); Anion Gap 6 mmol/L (6-16); Aspartate Aminotrans (AST/SGOT 19 U/L (12-37); Bilirubin, Total 0.2 mg/dL (0.1-1.0); Blood Urea Nitrogen 36 mg/dL (8-24); Bun/Creatinine Ratio 22.1 (12.0-20.0); CO2, Blood 24 mmol/L (21-32); Calcium, Blood 8.7 mg/dL (8.5-10.1); Chloride, Blood 108 mmol/L (98-108); Creatinine, Blood 1.63 mg/dL (0.60-1.20); Ethanol (Alcohol), Blood, Med <3 mg/dL; Globulin, Blood 4.7 g/dL (2.2-4.0); Glomerular Filtration Rate 45 (60-); Glucose, Blood 376 mg/dL (70-99); Potassium, Blood 4.1 mmol/L (3.5-5.5); Salicylate <1.7 mg/dL (2.8-20.0); Sodium, Blood 138 mmol/L (136-145); Total Protein, Blood 7.5 g/dL (6.4-8.2)
[2020-10-21 15:19] LABS: Bacteria Few /hpf; Squamous Epithelial Cells Not Seen /hpf (Few); White Blood Cells, Urine TNTC /hpf (0-5)
[2020-10-21 15:23] LABS: Acetaminophen, Random <2.0 ug/mL (10.0-30.0)
[2020-10-21 15:28] LABS: U Amphetamine Screen Not Detected; U Barbituate Screen Not Detected; U Benzodiazapine Screen Not Detected; U Buprenorphine Screen Not Detected; U Cannabinoids Screen Not Detected; U Cocaine Screen Not Detected; U Methadone Screen Not Detected; U Methamphetamine Screen Not Detected; U Opiates Screen Not Detected; U Oxycodone Screen Not Detected; U Phencyclidine Screen Not Detected; U Propoxyphene Screen Not Detected
[2020-10-21] MEDS ORDERED: LISINOPRIL2.5 MG PO (20:10)
[2020-10-21] MEDS ORDERED: AMLO5 PO (20:11)
[2020-10-21] MEDS ORDERED: XARELTO20 MG PO (20:11)
[2020-10-21] MEDS ORDERED: DILT180 PO (20:12)
[2020-10-21] MEDS ORDERED: Cymbalta20 MG PO (20:12)
[2020-10-21] MEDS ORDERED: QUET100 PO (20:47)
[2020-10-21] MEDS ORDERED: ATOR10 PO (20:47)
[2020-10-21] MEDS ORDERED: BASAGLAR K100 UNIT/1 SC ×2 (20:49→20:50)
[2020-10-21] MEDS ORDERED: NOVOLOG100 UNIT/2 SC (20:49)
[2020-10-21] MEDS ORDERED: ARTIFICIAL SALIVA PO (20:51)
[2020-10-21] MEDS ORDERED: ONDA8 PO (20:52)
[2020-10-21] MEDS ORDERED: OLOPATADINE HCL5 ML BOTHEYES (20:53)
[2020-10-21] MEDS ORDERED: MELA3 PO (20:54)
[2020-10-21] MEDS ORDERED: Vitamin B-121000 MCG PO (20:55)
[2020-10-21] MEDS ORDERED: CREON DR 24,001 EACH PO (20:57)
[2020-10-21] MEDS ORDERED: LIDOCAINE 2% VISCOUS PO (21:06)
[2020-10-21] MEDS ORDERED: FERSU300 PO (21:07)
[2020-10-21] MEDS ORDERED: ASCO500 PO (21:07)
[2020-10-21] MEDS ORDERED: VITAMIN D31000 UNI1 PO (21:07)
--- NOTE | 2020-10-22 03:43 | NUR ---
Patient alert and oriented to self and place. Appears to be stunned when we discuss his actions yesterday. States he has no recollection. Gianfranco becomes focused on whether or not he hurt someone. "Is that why i'm here?". He requires constant redirection in conversation, ambulating, He is very tangential. More so when he gets anxious. Constantly asking about hs . denies any suicidal ideation
[2020-10-22 05:33] LABS: BASOPHILS ABSOLUTE AUTO 0.09 K/mm3 (0.00-0.23); BASOPHILS PERCENT AUTO 1 % (0-2); EOSINOPHILS ABSOLUTE AUTO 0.24 K/mm3 (0.00-0.68); EOSINOPHILS PERCENT AUTO 2 % (0-6); Hematocrit 25.1 % (37.0-53.0); Hemoglobin 7.7 g/dL (13.5-17.5); IMMATURE GRAN ABSOLUTE AUTO 0.03 K/mm3 (0.00-0.10); IMMATURE GRAN PERCENT AUTO 0 % (0-1); LYMPHOCYTES ABSOLUTE AUTO 0.93 K/mm3 (0.84-5.20); LYMPHOCYTES PERCENT AUTO 9 % (21-46); MONOCYTES ABSOLUTE AUTO 0.81 K/mm3 (0.16-1.47); MONOCYTES PERCENT AUTO 8 % (4-13); Mean Corpuscular HGB 27.4 pg (26.0-34.0); Mean Corpuscular HGB Conc 30.7 g/dL (31.5-36.5); Mean Corpuscular Volume 89 fL (80-100); Mean Platelet Volume 12.4 fL (9.1-12.4); NEUTROPHILS ABSOLUTE AUTO 8.21 K/mm3 (1.96-9.15); NEUTROPHILS PERCENT AUTO 80 % (41-73); Platelet Count 321 K/mm3 (150-400); RDW Coefficient Variation 15.5 % (11.7-14.2); RDW Standard Deviation 51.2 fL (35.1-46.3); Red Blood Cell Count 2.81 M/mm3 (4.30-5.90); White Blood Cell Count 10.31 K/mm3 (4.00-11.30)
[2020-10-22 05:53] LABS: Bun/Creatinine Ratio 23.8 (12.0-20.0); Calcium, Blood 8.3 mg/dL (8.5-10.1); Creatinine, Blood 1.6 mg/dL (0.60-1.20); Potassium, Blood 3.6 mmol/L (3.5-5.5)
--- NOTE | 2020-10-22 12:29 | NUR ---
CALLED DR SMITH RE BP. STATES WILL SEE PT. NO NEW ORDERS AT THIS TIME.
[2020-10-22 16:32] LABS: Percent Saturation 7.1 % (20.0-50.0)
--- NOTE | 2020-10-22 17:37 | NUR ---
PT MOSTLY PLEASANT T/O DAY, BUT OFTEN IRRITABLE. OFTEN CALLING FOR COFFEE. NO C/O PAIN. PRESENTLY ON 2 MD HOLD. WAS POUNDING ON DOOR AND KICKING BED RECENTLY. DR DID START HIS BP MEDS THIS AFTERNOON. STATED TO ME THIS AFT THAT HE IS NOT FEELING SI AT THIS TIME. AMBULATED TO BATHROOM WITH 1 ASST FWW SEVERAL TIMES TODAY. BED IN LOW POSITION, CALL LITE ON WALL. ROOM CLEANED FOR ITEMS OF DANGER. IS ON APPLIQUER ZIGZAG VIDEO FOR PROTECTION. BED ALRM ON FOR SAFETY
--- NOTE | 2020-10-22 18:36 | NUR ---
PT IS MUMBLING AND RAMBLEING ABOUT HIS FIDUCIARY RESPONSIBILITY. THAT HER JUDICIAL RESPONSIBLITY IS HER FIDUCIARY PART TOO. CIRCULAR TALK ABOUT THIS OVER AND OVER. BED IN LOW POSITION, CALL LITE IN REACH, BED ALARM ON FOR SAFETY, PT AMBULATED WITH FWW TO BATHROOM SEVERAL TIMES TODAY.
--- NOTE | 2020-10-23 00:44 | NUR ---
PATIENT FINALLY FELL ASLEEP AROUND 23OO, AND HAS REMAINED IN BED SINCE. CAMERA MONITORS ON AND BED ALARM ON IN ADDITION TO FREQUENT VISUAL CHECKS. WILL CONTINUE CLOSE MONITORING
--- NOTE | 2020-10-23 04:28 | NUR ---
At 0400 patient woke up urgently getting OOB to go to bathroom. Staff arrived quickly to assist with walker and 2 person assist as Gianfranco was quite unsteady at that time. He required a maximum assist of 2 with a front wheeled walker and strong repetitive verbal instructions to get back to bed as patient appeared convinced he couldn't walk. Patient wouldn't ca;m down after this, so with assistance, a 2nd 5mg dose of IM Zyprexa was given. continue monitoring patient closely t
--- NOTE | 2020-10-23 04:53 | NUR ---
As noted in night stocker nurses notes, Gianfranco had 2 events of agitation over the shift requiring IM Zyprexa. After the patient was back in bed and medication administered, he started obsessing on his need specifically for the [employer] underwear he wears at home. This RN was unsuccessful convincing him that the hospital does not use that brand of pull up, he quite clearly told me that "if he didn't get them, he would lose his , and that that would be on this RN. Then perhaps the whole Suicidal Ideation just might come to fruition." report analyst informed of situation
--- NOTE | 2020-10-23 16:42 | NUR ---
INFORMED BRICKNER OF AFTERNOON BP, NO NEW ORDERS AT THIS TIME.
--- NOTE | 2020-10-23 18:21 | NUR ---
SHIFT SUMMARY PT DENIES ANY THOUGHTS OF SI T/O THE SHIFT, NO ACTIONS SHOWING SIGNS OF SI. ROOM CLEAR OF ANY DANGEROUS ITEMS AT ALL TIMES, BATHROOM REMAINED LOCKED UNLESS STAFF WAS IN ROOM ASSISTING PT. PT DID BECOME AGITATED AT TIMES REGARDING HIS AND BATHROOM BEING LOCKED, HE WOULD BANG ON THE BATHROOM DOOR. HE WOULD ALSO BECOME AGITATED IF FOOD OR DRINKS WERE NOT PROVIDED IMMEDIATELY UPON REQUEST. CBG BEGAN TO RISE T/O DAY, LATEST CBG 382. DYLANNER INFORMED, INSULIN GIVEN PER ORDERS, SEE EMAR. BP CONTINUED TO ELEVATE NORVASC STARTED THIS AFTERNOON. PT IS CURRENTLY RESTING IN BED c ALARM ON, CALL LIGHT ATTACHED TO WALL AND 10/[address]
--- NOTE | 2020-10-23 20:37 | NUR ---
PATIENT EXTREMELY AGITATED AT START OF SHIFT, NOT FOLLOWING COMMANDS OF NURSING STAFF, THEN 5 MINUTES LATER,COMPETELY UNAWARE OF EVENTS AND BACK AND FORTH FOR APPROXIMATELY 1.5 HOURS.
--- NOTE | 2020-10-24 07:35 | NUR ---
PATIENT AWAKE MOST OF THE NIGHT CALLING FOR COFFEE OR THE BATHROOM. VERY UNSTEADY ON FEET, AND APPEARS UNSURE OF HIS ABILITY TO AMBULATE WITH 2 STAFF AND A WALKER. THIS RN AND THE PROTOHISTORIAN HAD GREAT DIFFICULTY IN GETTING PATIENT TO TAKE STEPS WITH FRONT WHEELED WALKER TO LEAVE THE BATHROOM. PATIENT REFUSED TO TAKE HIS BEDTIME SEROQUEL HE SAID HE KNEW SOMEONE WHO "WIGGED OUT ON IT". IM ZYPREXA WAS GIVEN TWICE WITHOUT ANY EFFECT. THIS MORNING AT 06OO, PATIENT ASKED FOR A ROAST BEEF SANDWICH AND 2ND CUP OF COFFEE. LADY FROM [place] HADN'T BEEN UP YET AND HE WAS TOLD THAT THERE WERE NO MORE SANDWICHES AT THIS TIME. APPROX 10 MINUTES LATER, AN RN CAME INTO ANOTHER ROOM TO SAY THAT THE PATIENT HAD GOTTEN ONTO THE FLOOR AND WAS CRYING OUT THAT HE WANTED A SANDWICH NOW. ASSURANCE SENIOR MANAGER ADDRESSED THE PROBLEM AND FOUND A SANDWICH FOR HIM AND GOT HIM BACK INTO BED. PATIENT CHANGES FROM A GENTLE VOICE AND DEMEANOR TO AGRESSIVE AND MANIPULATING WITHIN SECONDS.
--- NOTE | 2020-10-24 08:00 | NUR ---
PT DENIES BEING SUICIDAL AT THIS TIME. WILL MONITOR AN INFORM MD.
--- NOTE | 2020-10-24 21:05 | NUR ---
VIOLENT BEHAVIOR PT HAS CLOSED THE DOOR MULTIPLE TIMES TO HIS ROOM. PIPE COVERER AND RN TRIED TO EXPLAIN PT DOOR HAS TO BE OPEN FOR SAFETY. THIS SITUATION ESCULATED FAST AND PT HAS PINNED PIPE COVERER ASHLEE Margareth TO THE WALL AND SQUEEZED HER ARMS. JACLYN BARROW CALLED. CONCRETE LAYER AND NURSING UI SOFTWARE ENGINEER AWARE PT WILL KEEP HIS DOOR CLOSED. CAMERA IS ON. PT DENIED SUICIDAL BEHAVIORS.
--- NOTE | 2020-10-24 22:45 | NUR ---
PATIENT ARRIVED TO ICU 15 VIA BED. PATIENT AWAKE AND IN BEHAVIORAL RESTRAINTS TO BILAT WRIST. PATIENT CALM, GIVEN TRIAL WITHOUT RESTRAINTS AND WAS ABLE TO TRANSFER SELF TO ICU BED. PATIENT HAVING CONFUSED CONVERSATION AND PULLING ON ICU MONITORS, BILAT WRIST RESTRAINTS IN PLACE TO KEEP PATIENT FROM REMOVING NEW IV SITE AND ICU MONITORS. DELVIN COMPUTER FORENSIC SPECIALIST IN TO SEE PATIENT PLAN TO CHANGE SEROQUEL PO TO SCHEDULED RATHER THAN PRN.
--- NOTE | 2020-10-25 00:35 | NUR ---
PATIENT VERBALIZED FEELING HUNGRY. PATIENT ASSISTED WITH EATING YOGURT AND A CLEAR ENSURE. PATIENT AT FIRST AGREEING TO TAKE PO SEROQUEL THEN WHEN AVAILABLE PATIENT ANGRY BECAUSE WRIST RESTRAINTS REMAINED IN PLACE, PATIENT REQUIRING THERAPEUTIC CONVERSATION AND REMINDING THAT THE SEROQUEL WILL HELP CALM HIS MIND AND HELP HIM FOCUS, THEN WE CAN SEE IF HE WILL REMEMBER TO KEEP ICU MONITORS IN PLACE. PATIENT THAN AGREEING TO TAKE THE PO MEDICATIONS AND ATE HIS SNACK WITH ASSISTANCE FROM STAFF.
--- NOTE | 2020-10-25 00:51 | NUR ---
PATIENT CONTINUES TO HAVE CONFUSED CONVERSATION WITH FLIGHT OF IDEAS. PATIENT VERBALIZING DESIRE TO NO LONGER BE LIVING, BUT VERBALIZED NO PLAN. AFTER REMINDING PATIENT THAT THE DESIRE TO HARM SELF IS WHY HE IS IN THE HOSPITAL ON A 2 MD HOLD. PATIENT VERBALIZED THAT HE UNDERSTANDS, BUT HE CONTINUES TO HAVE SCATTERED CONVERSATION.
--- NOTE | 2020-10-25 02:03 | NUR ---
PATIENT VERBALIZED THAT HE IS FEELING LIKE HE IS THINKING CLEARER. ATTEMPT TO USE URINAL IN BED WITH NO RESULTS. WRIST RESTRAINTS REMAIN IN PLACE AT THIS TIME. PATIENT CONTINUES TO NEED REMINDING TO NOT REMOVE ICU MONITORS AND BIOX. RESTRAINTS LOOSE ENOUGH FOR PATIENT TO BE ABLE TO REPOSITION IN BED BUT CONTINUE A REMINDER TO NOT PULL ON LINES.
--- NOTE | 2020-10-25 02:50 | NUR ---
PATIENT REMAINS AWAKE REMOVING BIOX AND ATTEMPTING TO GET OUT OF BED. WHEN ASKED WHERE HE WAS WANTING TO GO HE VERBALIZED THAT HE WANTED TO "TAKE A LITTLE BREAK" STATING THAT HE WILL BE BACK AFTER HE MAKES HIMSELF A SANDWICH. PATIENT REMINDED THAT IT IS 0230 IN THE MORNING AND THAT WE DON'T HAVE SANDWICHS AT THIS TIME. PATIENT BECOMING ANGRY AND TRYING TO [place] FOR FOOD AND TO BE ABLE TO GO HOME. PATIENT AGAIN TOLD THAT HE WAS ON A 2 MD HOLD AND THAT HE CAN NOT LEAVE. PATIENT GIVEN YOGURT A SNACK. PATIENT NOW RESTING QUIETLY. BILAT WRIST RESTRAINTS REMAIN IN PLACE
--- NOTE | 2020-10-25 04:30 | NUR ---
PATIENT RESTLESS AND SPONTANEOUS, ATTEMPTING TO GET UP OUT OF BED TO GO FIND HIS . AGAIN REMIND PATIENT THAT HE IS IN THE HOSPITAL AND THAT IT IS 0400 IN THE MORNING. PATIENT CONTINUES TO FEEL HUNGRY, PATIENT FORGETTING THAT HE HAS HAD TWO SNACKS ALREADY TONIGHT. ZYPREXA IM GIVEN TO HELP PATIENT RELAX. PATIENT ASSISTED WITH URINAL WITH NO RESULTS, PATIENT APPEARS TO FORGET THE URINAL IS IN PLACE.
--- NOTE | 2020-10-25 05:10 | NUR ---
INCREASED AGITATION, NONSTOP TALKING, CONFUSED CONVERSATION. NEEDING FREQUENT REMINDING THAT HE IS IN THE HOSPITAL AND THAT HE IS SAFE. PATIENT REMOVING ICU MONITOR AND ATTEMPTING TO GET OUT OF BED, VERBALIZED HE WAS WANTING TO JUST GO HOME AND "TAKE CARE OF A FEW THINGS." ATTEMPTING SEVERAL TIMES TO REMIND PATIENT OF WHY HE IS IN THE HOSPITAL AND THAT WE ARE TRYING TO HELP HIM AND KEEP HIM SAFE. PATIENT HITTING AND KICK AT STAFF WHEN ATTEMPT TO PROVIDE CARE. PATIENT PULLING HIS ARMS OUT OF SOFT RESTRAINTS. TUFF CUFF LOCKED RESTRAINTS PLACED ON PATIENT 4 POINT, WITH LEFT ARM UP AND RIGHT ARM DOWN. DOCTOR LEARY NOTIFIED OF INCREASED AGITATION, ORDER OBTAINED FOR HALDOL IV.
--- NOTE | 2020-10-25 06:40 | NUR ---
SUMMARY PATIENT AWAKE T/O NIGHT. NIGHT PROGRESSED PATIENT BECOMING MORE AGITATED AND RESTLESS, PULLING ON MONITOR, AND BIOX, ATTEMPTING TO GET OUT OF BED TO GO HOME AND SEE HIS . AT TIMES PATIENTS CONVERSATION DIFFICULT TO FOLLOW. PATIENT NOW IN TAT TUFF CUFFS BECAUSE OF HIS ABILITY TO PULL OUT OF THE SOFT WRIST RESTRAINTS. PATIENT CONTINUING TO FEEL HUNGRY DESPITE HAVING SEVERAL SNACKS DURING THE NIGHT. PATIENT YELLING OUT THINKING HE HAS BEEN KIDNAPED. WHEN ATTEMPT TO EXPLAIN SITUATION TO PATIENT HE BECOMES ANGRY AND THREATENING TOWARD STAFF
--- NOTE | 2020-10-25 07:43 | NUR ---
CARE ASSUMED OF PATIENT. DISCUSSION TO WHERE HE IS AND WHY HE IS HERE. SEEMS TO UNDERSTAND BRIEFLY, THEN REPEATS HE WANTS TO GO HOME. TO SEE HIS , TO REST THERE. CBG 122, SEMGLEE GIVEN PER MAR. ENCOURAGED PATIENT TO TAKE A NAP AND HE MIGHT FEEL BETTER. TEETH BRUSHED, MOUTH RINSED. WANTS TO EAT.
--- NOTE | 2020-10-25 08:44 | NUR ---
PT IS SETTLED DOWN AND RESTING. HE HAS BEEN PLACED IN AJIT.SOFT WRIST RESTRAINTS AT THIS TIME.
--- NOTE | 2020-10-25 09:00 | NUR ---
KAY REALLY WANTS TO GET UP TO USE THE BATHROOM, HE HAS TRIED THE URINAL A FEW TIMES, WITH ASSISTANCE FROM ANOTHER RN, WE GOT HIM UP AND TO THE TOILET IN THE ROOM, HE WAS ABLE TO URINATE. HE WAS APPROPRIATE AND CALM. HE RETURNED TO BED AND FELL BACK TO SLEEP.
--- NOTE | 2020-10-25 11:25 | NUR ---
Contacted by [employer] B[employer] DETAILER for Suicide Safety Plan. Chart review reflects the patient wif is legal gauardian. Dr. Webb contacted- to bring guardianship documents in today at 2 pm. Case management informed of this, as chart review reflects possible placement for memory care, and involvement of guardian needed if Safety Plan does become indicated. Karyn Ordonez M.Ed., HP-C, Behavior Health Director
--- NOTE | 2020-10-25 11:34 | NUR ---
KAY WAKES BRIEFLY, ASKS TO URINATE, GIVEN URINAL, CAN'T GO. CALLS ME HIS , REORIENTED, DOESN'T KNOW WHY HE IS IN THE HOSPITAL OR ICU. CAN'T RECALL. CALLS ME HIS AGAIN, REORIENTED. URINAL REMAINS IN PLACE.
--- NOTE | 2020-10-25 16:30 | NUR ---
PT WAKES WITH A START, NEEDS TO USE THE BATHROOM, "I'VE GOTTA GO". HE WAS ALREADY INCONTINENT OF BOWEL WHEN WE TRANSFERRED TO THE TOILET IN THE ROOM. PT CLEANED UP. HE WAS COOPERATIVE AND ANOTHER DEPENDS WAS PUT ON. HE RETURNED TO BED AND DINNER WAS GIVEN.
--- NOTE | 2020-10-25 17:54 | NUR ---
PT HAS BEEN WITHOUT RESTRAINTS FOR THE LAST COUPLE OF HOURS, HE IS TOLERATING IT VERY WELL. HE HAS BEEN SITTING UP IN THE BED, EATING HIS DINNER, SLOW AND STEADY. TAKING IT ALL IN. HE CONTINUES TO ASK FOR COFFEE, DECAF GIVEN. HE HAS TAKEN HIS MEDICATIONS WITHOUT INCIDENT, BLOOD SUGARS HAVE BEEN GOOD. PT CONTINUES TO BE UNCLEAR, IMPROVING THROUGHOUT THE DAY. WHEN LAST ASKED HE KNEW HE WAS IN [place], SAID HE WAS "IN CARE HOME", THEN CHANGED IT TO "THE HOSPITAL". HE IS BEING MANNERLY AND DECENT AT THIS TIME.
--- NOTE | 2020-10-25 19:30 | NUR ---
ASSUMED CARE OF PT, HE IS UNABLE TO STATE THE DATE OR LOCATION, HE GIVES YEAR 2007, HE STATES LOCATION "THE TREATMENT ROOM" HOWEVER DOES NOT PROVIDE FURTHER CLARIFICATION ON WHERE THE TREATMENT ROOM IS LOCATED. HE IS NOTED TO HAVE FREQUENT FLIGHTS OF IDEAS SUCH WONDERING ABOUT URINATING, DENIES NEED TO VOID AT THIS TIME BUT STATES THAT "IT IS EXPECTED OF ME AT SOME POINT" HE IS NOTED TO FREQUENTLY STARE AT TOILET IN CORNER OF ROOM WHILE SPEAKING AND DENIES NEED TO GET UP TO USE TOILET HOWEVER WHEN INSTRUCTED TO GET UP TO USE TOILET HE IS NOTED TO HAVE A PROLONGED VOID AND SECOND BOWEL MOVEMENT THIS SHIFT.
--- NOTE | 2020-10-26 05:41 | NUR ---
PT SLEPT THIS SHIFT FROM APPROXIMATELY 2200 UNTIL AFTER 0500 AT WHICH TIME HE GOT UP TO VOID IN TOILET, SPEECH WAS MUMBLED HOWEVER PT WAS COMPLIANT WITH VERBAL DIRECTIONS WITH THE EXCEPTION OF REPEATEDLY LYING DOWN WITH HEAD POSITIONED AT FOOT OF BED AND FEET AT HEAD OF BED. PT DID EXPRESS IRRITATION WITH CONTINUED ATTEMPTS TO DIRECT PATIENT TO POSITION CORRECTLY IN BED AND MUMBLED SPEECH INCREASED. PT WAS ALLOWED TO REMAIN IN POSITION OF COMFORT AND BEDDING WAS REPOSITIONED ON BED TO ACCOMODATE PT. HE APPEARS TO HAVE RETURNED TO SLEEP AT THIS TIME, WILL CONTINUE TO MONITOR.
--- NOTE | 2020-10-26 09:02 | NUR ---
ASSUMED CARE REPORT RECIEVED. PT IS LAYING IN BED RESTING QUIETLY, WITH HEAD AT THE FOOT OF THE BED. PT APPEARS COMFORTABLE. PT AROUSES TO VERBAL STIMULI EASILY. PT IS CONFUSED AND SPEECH IS SCATTERED. PT NOT FOLLOWING COMMANDS AT THIS TIME. PT IS CALM. MOVES ALL EXTREMITIES WELL. VITAL SIGNS STABLE. ATTENDS IN PLACE. IV SALINE LOCKED. PT UNABLE TO PARTICIPATE IN SI SCREENING. 2MD HOLD IN PLACE. CAMERA REMOTE MONITORING IN PLACE. BED ALARM ON. DR ZARATE AT BEDSIDE, DISCUSSED PLAN FOR PLACEMENT. WILL CONTINUE TO MONITOR.
--- NOTE | 2020-10-26 17:40 | NUR ---
SHIFT SUMMARY NO ACUTE CHANGES THIS SHIFT. PT REMAINS CONFUSED AND IMPULSIVE. PT WITH SCATTERED THOUGHT PROCESS AND PARANOID DELUSIONS AT TIMES. PT IS REDIRECTABLE AT TIMES. PT HAS REMAINED CALM AND COOPERATIVE THROUGHOUT THE DAY. PT WITH GREAT APPETITE. VITAL SIGNS STABLE. REPORT CALLED TO [facility] FLOOR CAMRON DAVIS. PT TO BE TAKEN TO ROOM 350 BY BED AT THIS TIME.
--- NOTE | 2020-10-26 17:54 | NUR ---
RECIEVED REPORT FROM JACLYN AT 1747. PATIENT TO TRANSFER TO ROOM 350.
--- NOTE | 2020-10-26 18:10 | NUR ---
PATIENT ARRIVED TO ROOM 350 AT 1805 AND WAS SITUATED IN THE BED. PATIENT GIVEN DINNER. SI PRECAUTIONS IN PLACE.
[2020-10-27 05:01] LABS: Hematocrit 27.9 % (37.0-53.0); Hemoglobin 8.6 g/dL (13.5-17.5)
[2020-10-27 05:29] LABS: Anion Gap 5 mmol/L (6-16); Blood Urea Nitrogen 45 mg/dL (8-24); Bun/Creatinine Ratio 21.7 (12.0-20.0); CO2, Blood 25 mmol/L (21-32); Chloride, Blood 110 mmol/L (98-108); Creatinine, Blood 2.07 mg/dL (0.60-1.20); Glomerular Filtration Rate 34 (60-); Glucose, Blood 89 mg/dL (70-99); Phosphorus, Blood 3.7 mg/dL (2.5-4.9); Potassium, Blood 3.9 mmol/L (3.5-5.5); Sodium, Blood 140 mmol/L (136-145)
--- NOTE | 2020-10-27 05:37 | NUR ---
SHIFT SUMMARY AOXSELF. CONFUSED. UNAWARE SITUATION, DATE, CAN FOLLOW SIMPLE DIRECTIONS @TIMES WHEN NOT AGITATED. DENIED ANY SI THOUGHTS OR FEELING. HOWEVER WHEN AGITATED & ANGRY PT STATED "WELL I'M JUST GOING TO HURT MYSELF" PT IS ON 1:1 CAMERA SUPERVISION. PT YELLING, CURSING, AGITATED, IMPULSIVE, PULLING ON PATRICIA VEST T/O BEGINNING OF SHIFT. MEDICATED c SCHEDULED 200MG SEROQUEL, PT STILL AGITATED, YELLING & TRYING TO GET OOB-GAVE IM ZYPREXA & 50MG SEROQUEL. PT ABLE TO REST T/O NIGHT UNTIL THIS AM. INCONT/CONT OF URINE. CALL LIGHT & BED ALARM IN PLACE. WCTM.
--- NOTE | 2020-10-27 17:33 | NUR ---
SUMMARY PT SITTING UP IN BED, HAS BEEN CONFUSED OFF AND ON T/O THE DAY, HAS MANY REQUESTS AND NEEDS, PT OFTEN GETS UPSET IF HIS NEEDS ARE NOT IMMEDIATELY MET, BED ALARM AND PATRICIA ON FOR SAFETY, PT DIFFICULT TO REDIRECT, SPEECH IS TANGENTIAL AND FLIGHTY, PT ABLE TO TAKE PILLS WHOLE WITH WATER, USES THE URINAL WITH ASSIST AND OCC INDEPENDENTLY, NO CALLS OR VISITS TODAY, VSS, WILL CONTINUE TO MONITOR
[2020-10-28 00:03] LABS: BASOPHILS ABSOLUTE AUTO 0.05 K/mm3 (0.00-0.23); BASOPHILS PERCENT AUTO 1 % (0-2); EOSINOPHILS ABSOLUTE AUTO 0.19 K/mm3 (0.00-0.68); EOSINOPHILS PERCENT AUTO 2 % (0-6); Hematocrit 26.2 % (37.0-53.0); Hemoglobin 8.1 g/dL (13.5-17.5); IMMATURE GRAN ABSOLUTE AUTO 0.05 K/mm3 (0.00-0.10); IMMATURE GRAN PERCENT AUTO 1 % (0-1); LYMPHOCYTES ABSOLUTE AUTO 1.71 K/mm3 (0.84-5.20); LYMPHOCYTES PERCENT AUTO 18 % (21-46); MONOCYTES ABSOLUTE AUTO 0.48 K/mm3 (0.16-1.47); MONOCYTES PERCENT AUTO 5 % (4-13); Mean Corpuscular HGB 27.1 pg (26.0-34.0); Mean Corpuscular HGB Conc 30.9 g/dL (31.5-36.5); Mean Corpuscular Volume 88 fL (80-100); Mean Platelet Volume 11.5 fL (9.1-12.4); NEUTROPHILS ABSOLUTE AUTO 6.89 K/mm3 (1.96-9.15); NEUTROPHILS PERCENT AUTO 74 % (41-73); Platelet Count 348 K/mm3 (150-400); RDW Coefficient Variation 15.4 % (11.7-14.2); RDW Standard Deviation 50.1 fL (35.1-46.3); Red Blood Cell Count 2.99 M/mm3 (4.30-5.90); White Blood Cell Count 9.37 K/mm3 (4.00-11.30)
--- NOTE | 2020-10-28 00:31 | NUR ---
TRANSCRIPT EVALUATOR COST REDUCTION ENGINEER CALLED THIS NURSE INTO @5059. WENT INTO & PT HAD BROWN EMESIS ALLOVER L SHOULDER. ASKED COST REDUCTION ENGINEER TO GRAB SUCTION & CBG MACHINE. PT HAD 2 MORE EPISODES EMESIS WHILE SETTING UP SUCTION. HOB WAS ELEVATED. PT NOT RESPONSIVE TO HIS NAME, STARED BLANKLY. NOTICED HE WAS BITTING DOWN ON TONGUE. ASKED [address] [place] [id number] NURSE GREG BETHEA TO CALL TRANSCRIPT EVALUATOR & GET ZOFRAN. DISOLVED PO ZOFRAN & TRIED PLACING IN BUCCAL. TRANSCRIPT EVALUATOR TEAM SHOWED UP. VITALS SHOWED 77% ON RA. RESPIRATORY PLACED PT ON 15L O2 c NON-REBREATHER. CBG SHOWED "LOW" <10. D50 GIVEN. CBG RECHECKED & WAS >100. PT BECAME MORE RESPONSIVE, COULD BLINK EYES & GIVE THUMBS UP POST D50. MD CAME TO & DECIDED TO MOVE PT TO ICU 9, PT MOVED @0000.
[2020-10-28 00:40] LABS: Alanine Aminotransfer (ALT/SGP 23 U/L (12-78); Albumin, Blood 3.1 g/dL (3.4-5.0); Albumin/Globulin Ratio 0.7 (0.8-1.8); Alk Phos 98 U/L (50-136); Anion Gap 5 mmol/L (6-16); Aspartate Aminotrans (AST/SGOT 21 U/L (12-37); Bilirubin, Total <0.1 mg/dL (0.1-1.0); Blood Urea Nitrogen 45 mg/dL (8-24); Bun/Creatinine Ratio 22.4 (12.0-20.0); CO2, Blood 26 mmol/L (21-32); Calcium, Blood 8.7 mg/dL (8.5-10.1); Chloride, Blood 108 mmol/L (98-108); Creatinine, Blood 2.01 mg/dL (0.60-1.20); Globulin, Blood 4.6 g/dL (2.2-4.0); Glomerular Filtration Rate 35 (60-); Glucose, Blood 118 mg/dL (70-99); Potassium, Blood 3.5 mmol/L (3.5-5.5); Sodium, Blood 139 mmol/L (136-145); Total Protein, Blood 7.7 g/dL (6.4-8.2)
[2020-10-28 01:30] LABS: Source, Urine Catheter
[2020-10-28 01:36] LABS: Bilirubin, Urine Neg (Neg); Blood, Urine 2+ (Neg); Glucose Qualitative, Urine Neg (Neg); Ketones, Urine Neg (Neg); Leukocyte Esterase, Urine 2+ (Neg); Nitrite, Urine Neg (Neg); Protein, Urine 2+ (Neg); Specific Gravity, Urine 1.015 (1.003-1.022); Urobilinogen, Urine NORM (Normal)
[2020-10-28 01:38] LABS: Appearance, Urine Clear (Clear); Color, Urine Yellow (P-Yellow)
[2020-10-28 01:46] LABS: Bacteria Few /hpf; Red Blood Cells, Urine 0-2 /hpf (0-2); Squamous Epithelial Cells Not Seen /hpf (Few); White Blood Cells, Urine 50-100 /hpf (0-5)
[2020-10-28 03:54] LABS: PCO2 Arterial 34.2 mmHg (35-45); PO2 Arterial 71.1 mmHg (80-100); pH Blood Arterial 7.36 (7.35-7.45)
[2020-10-28 04:33] LABS: Anion Gap 9 mmol/L (6-16); Blood Urea Nitrogen 46 mg/dL (8-24); Bun/Creatinine Ratio 20.5 (12.0-20.0); CO2, Blood 22 mmol/L (21-32); Calcium, Blood 8.7 mg/dL (8.5-10.1); Chloride, Blood 108 mmol/L (98-108); Creatinine, Blood 2.24 mg/dL (0.60-1.20); Glomerular Filtration Rate 31 (60-); Glucose, Blood 118 mg/dL (70-99); Potassium, Blood 4.2 mmol/L (3.5-5.5); Sodium, Blood 139 mmol/L (136-145)
[2020-10-28 05:47] LABS: Creatine Kinase MB Index 2.5 (0.0-4.0)
--- NOTE | 2020-10-28 05:54 | NUR ---
SHIFT SUMMARY PATIENT ARRIVED TO ICU RM 9 @ 00:00 FROM [facility] FLO[facility], WAS PROMPTLY INTUBATED, PLACED OG AND JACOME PER DR LEARY, STARTED ON PROPOFOL FOR SEDATION. INITIALLY REQUIRED A LARGE DOSE OF PROPOFOL, UP TO 40 MCG/KG/MIN MAXIMUM. PT WAS TOLERATING THIS FOR OVER AN HOUR, THEN QUICKLY STARTED TO LOSE BLOOD PRESSURE. CALLED DR PINEDA, OBTAINED ORDER TO START LACTATED RINGERS @ 150 ML/HR, AND START LEVOPHED PERIPHERALLY MAX OF 8 MCG/MIN. ALSO DEALING WITH HYPOGLYCEMIA, HAD GIVEN 1 AMP OF D50, BLOOD SUGARS STABILIZED ON D10 DRIP. WHEN BLOOD PRESSURE STARTED TO DROP, STARTED TO LOWER PROPOFOL DUE TO LACK OF COUGH AND GAG REFLEX. PT BECAME TACHYCARDIC, DEVELOPED MUSCLE SPASMS, RT SWITCHED TO SPONTANEOUS AND PT BREATHING ROUGHLY 30 BREATHS/MIN, TIDAL VOLUMES UPWARDS OF 1200. INITIALLY GAVE 50 MCG OF FENTANYL WHICH HAD NO EFFECT. CALLED DR PINEDA WITH CONCERN OF POSSIBLE MALIGNANT HYPERTHERMIA PT TEMPERATURE ALSO RISING RATHER QUICKLY, HOWEVER LAB WORK DOES NOT SUPPORT THIS IDEA. GAVE 4MG TOTAL OF VERSED, PT NOW RELAXING; HR ~ 110S, RR LOW 20S, TIDAL VOLUMES ON VENT ~ 350, NO LONGER SPASMING/SHIVERING. ASSESSMENT IS CHARTED. VSS. WILL CONTINUE TO MONITOR.
--- NOTE | 2020-10-28 08:03 | NUR ---
AM NOTE... ASSUMED CARE OF PT AT 0700. PT IS INTUBATED AND SEDATED ON 45MCG OF PROPOFOL, VENT SETTINGS ARE SPONTAINIOUS AT PEEP OF 5 AND 50% WITH O2 SATS >95%. L/S CLEAR T/O DIM IN THE BASES, RR 18 EVEN AND UNLABORED. PT IS IN SR/SINUS TACH 90'S-110'S. NO SWELLING OR EDEMA NOTED ON ASSESSMENT. PT IS ON LEVOPHED WITH SBPs >120, THIS WAS TITRATED OFF AT 0730 WITH MAPS >65 AT THIS TIME. BT PRESENT AND HYPERACTIVE, ABD IS SOFT TO PALPATION. OG TUBE SET TO LOW INT SUCTION WITH REDISH/BROWN THICK GASTRIC CONTENTS NOTED IN THE SUCTION CANISTER, THERE IS 100MLS NOTED IN THE SUCTION CANISTER AT THIS TIME. PT CURRENTLY HAS NS BOLUS RUNNING AT THIS TIME, D10W RUNNING AT 75MLS/HR, PT'S CBG WAS 170'S. JACOME IS PATENT AND DRAINING CLEAR YELLOW URINE TO GRAVITY. WILL CONTINUE TO MONITOR.
--- NOTE | 2020-10-28 09:55 | NUR ---
PT UPDATE.... DR. MAYER AT THE BEDSIDE FOR ASSESSMENT. PER DR. MAYER NO CHANGES OR NEW ORDERS AT THIS TIME. PT'S GASTRIC CONTENTS WERE SENT TO THE LAB D/T SUSPICION OF POSSIBLE UPPER GI BLEED D/T THE RED COLOR NOTED IN THE OG TUBE AND SUCTION CANSISTER. OCCULT BLOOD/GUAIAC OF GASTRIC CONTENTS CAME BACK NEGATIVE. WILL CONTINUE TO MONITOR.
[2020-10-28 11:00] LABS: BASOPHILS ABSOLUTE AUTO 0.02 K/mm3 (0.00-0.23); BASOPHILS PERCENT AUTO 0 % (0-2); EOSINOPHILS ABSOLUTE AUTO 0.01 K/mm3 (0.00-0.68); EOSINOPHILS PERCENT AUTO 0 % (0-6); Hematocrit 23.4 % (37.0-53.0); Hemoglobin 7.2 g/dL (13.5-17.5); IMMATURE GRAN ABSOLUTE AUTO 0.05 K/mm3 (0.00-0.10); IMMATURE GRAN PERCENT AUTO 0 % (0-1); LYMPHOCYTES ABSOLUTE AUTO 0.44 K/mm3 (0.84-5.20); LYMPHOCYTES PERCENT AUTO 3 % (21-46); MONOCYTES ABSOLUTE AUTO 0.81 K/mm3 (0.16-1.47); MONOCYTES PERCENT AUTO 6 % (4-13); Mean Corpuscular HGB Conc 30.8 g/dL (31.5-36.5); Mean Corpuscular Volume 91 fL (80-100); Mean Platelet Volume 12.5 fL (9.1-12.4); NEUTROPHILS ABSOLUTE AUTO 12.54 K/mm3 (1.96-9.15); NEUTROPHILS PERCENT AUTO 90 % (41-73); Platelet Count 296 K/mm3 (150-400); RDW Coefficient Variation 15.5 % (11.7-14.2); RDW Standard Deviation 51.9 fL (35.1-46.3); Red Blood Cell Count 2.57 M/mm3 (4.30-5.90); White Blood Cell Count 13.87 K/mm3 (4.00-11.30)
--- NOTE | 2020-10-28 15:53 | NUR ---
PT UPDATE... PT'S 1215 CBG WAS 298, DR. MAYER NOTIFIED VERBAL ORDER GIVEN TO THIS RN TO STOP THE D10W AND RECHECK CBG IN 2 HRS. THE 2HR CHECK WAS 281, DR. MAYER CALLED AGAIN AND AN ORDER WAS GIVEN TO THIS RN TO START A HIGH SLIDING SCALE REGULAR INSULIN EVERY Q6HRS. WILL CONTINUE TO MONITOR.
--- NOTE | 2020-10-28 18:48 | NUR ---
SHIFT SUMMARY... NO ACUTE NEGATIVE CHANGES NOTED THIS SHIFT. PT'S VS HAVE IMPROVED T/O THE SHIFT, LEVOPHED HAS BEEN OFF SINCE THIS AM. PT'S VENT SETTINGS ARE S/P 5/5 AND 40% WITH O2 SATS >95%. L/S CLEAR T/O. D10W WAS STOPPED AT 1215 D/T INCREASINGLY HIGH CBGs, PT WAS PUT ON A HIGH S/S REGULAR INSULIN SUBQ Q6HRS. JACOME PATENT AND DRAINING YELLOW URINE WITH SEDIMENT. PT WILL RESPOND TO ORAL CARE AND PAINFUL STIMULI BUT IS CALM AND RESTING OTHERWISE. WILL CONTINUE TO MONITOR UNTIL REPORT IS GIVEN TO ONCOMING RN.
[2020-10-29 03:14] LABS: BASOPHILS ABSOLUTE AUTO 0.06 K/mm3 (0.00-0.23); BASOPHILS PERCENT AUTO 0 % (0-2); EOSINOPHILS ABSOLUTE AUTO 0.19 K/mm3 (0.00-0.68); EOSINOPHILS PERCENT AUTO 1 % (0-6); Hematocrit 22.1 % (37.0-53.0); Hemoglobin 6.9 g/dL (13.5-17.5); IMMATURE GRAN ABSOLUTE AUTO 0.11 K/mm3 (0.00-0.10); IMMATURE GRAN PERCENT AUTO 1 % (0-1); LYMPHOCYTES ABSOLUTE AUTO 0.79 K/mm3 (0.84-5.20); LYMPHOCYTES PERCENT AUTO 4 % (21-46); MONOCYTES ABSOLUTE AUTO 0.62 K/mm3 (0.16-1.47); MONOCYTES PERCENT AUTO 3 % (4-13); Mean Corpuscular HGB 27.7 pg (26.0-34.0); Mean Corpuscular HGB Conc 31.2 g/dL (31.5-36.5); Mean Corpuscular Volume 89 fL (80-100); Mean Platelet Volume 11.6 fL (9.1-12.4); NEUTROPHILS ABSOLUTE AUTO 16.52 K/mm3 (1.96-9.15); NEUTROPHILS PERCENT AUTO 90 % (41-73); Platelet Count 293 K/mm3 (150-400); RDW Coefficient Variation 15.8 % (11.7-14.2); RDW Standard Deviation 51.4 fL (35.1-46.3); Red Blood Cell Count 2.49 M/mm3 (4.30-5.90); White Blood Cell Count 18.29 K/mm3 (4.00-11.30)
[2020-10-29 03:32] LABS: Albumin, Blood 2.3 g/dL (3.4-5.0); Anion Gap 6 mmol/L (6-16); Blood Urea Nitrogen 46 mg/dL (8-24); Bun/Creatinine Ratio 22.9 (12.0-20.0); CO2, Blood 22 mmol/L (21-32); Calcium, Blood 7.8 mg/dL (8.5-10.1); Chloride, Blood 110 mmol/L (98-108); Creatinine, Blood 2.01 mg/dL (0.60-1.20); Glomerular Filtration Rate 35 (60-); Glucose, Blood 233 mg/dL (70-99); Magnesium, Blood 1.9 mg/dL (1.6-2.4); Phosphorus, Blood 4.1 mg/dL (2.5-4.9); Potassium, Blood 4.3 mmol/L (3.5-5.5); Sodium, Blood 138 mmol/L (136-145); Vancomycin, Random 8.1 ug/mL
[2020-10-29 04:01] LABS: PCO2 Arterial 34.8 mmHg (35-45); PO2 Arterial 70.5 mmHg (80-100); pH Blood Arterial 7.39 (7.35-7.45)
--- NOTE | 2020-10-29 05:51 | NUR ---
SHIFT SUMMARY PT HAS SLEPT WELL THRU NIGHT. HAVE VERY SLOWLY DECREASED PROPOFOL DRIP, I HAVE DONE SO PT HAS EXPERIENCED RISE IN BLOOD PRESSURE, CURRENTLY 156/72. AT THE LOWER RATE HE IS ON NOW DOES GRIMACE SLIGHTLY TO ORAL CARE, WITHDRAWS EXTREMETIES TO NOXIOUS STIMULI, BUT MAKES NO EFFORT TO FOLLOW DIRECTIONS; TOLERATING VENTILATOR AT THIS TIME. IN THE NIGHT MINUTE VENTILATIONS DROP, RESPIRATORY THERAPY PLACED PT BACK ON AC MODE, 16/470/5/30%, SEE RESPIRATORY CHARTING FOR EXACT TIME. HELD MIDNIGHT INSULIN DUE TO CONCERN OVER POTENTIAL HYPOGLYCEMIA, HOWEVER GAVE 9U OF INSULIN WITH THE C.B.G. THIS AM OF 282. LAB WORK REVEALED A RISING WHITE BLOOD COUNT, AND A HEMOGLOBIN OF 6.9. OBTAINED ORDER FOR 1 UNIT PRBC, AND OBTAINED VERBAL CONSENT FROM THE , BRIDGET, WHO HAD NO FURTHER QUESTIONS REGARDING HIS CARE AT THE TIME. PT. GASTRIC OUTPUT HAS BEEN ZERO THIS SHIFT. ASSESSMENT IS CHARTED. VSS. WILL CONTINUE TO MONITOR.
--- NOTE | 2020-10-29 07:30 | NUR ---
ASSUMED CARE OF PATIENT FROM CAMRON MONTES DE OCA. PT ON VENT SETTINGS AC/PC 16,470,5/30% PT ON PROPOFOL @ 25MCG/KG/MIN, LR @ 150ML/HR, NS @ 10ML/HR, AWAITING BLOOD READY UNIT. PROPOFOL IN LEFT FOREARM, NS IN RIGHT FOREARM AND LR IN TAMIKO PG. LUNGS WET SOUNDING, OCC COUGH, PT DROOLING, ABDOMEN SOFT NON TENDER, JACOME TO GRAVITY CLEAR YELLOW, ALMOST COLORLESS. PULSES PALPABLE IN ALL EXTREMITIES. PT NOT ANSWERING, NOT OPENING EYES, DROOLING. ET SUCTIONING WITH WHITISH THIN RETURN.
--- NOTE | 2020-10-29 08:11 | NUR ---
PT WITH DROOLING, NO RESPONSES, PROPOFOL TURNED DOWN TO 20MCG/KG/MIN. 1U PRBC INFUSING VIA RIGHT UA PG.
--- NOTE | 2020-10-29 09:18 | NUR ---
PROPOFOL PUT ON STANDBY BY REQUEST OF . BLOOD CONTINUES INFUSING.
--- NOTE | 2020-10-29 09:43 | NUR ---
TUBE FEEDING STARTED PER ORDERS. PIVOT 1.5 AT 20ML/HR. PT WILL NOW OPEN HIS EYES TO COMMAND, NODS THAT HE KNOWS HE IS IN THE HOSPITAL, PT TRIES TALKING, BEGINS COUGHING. ENCOURAGED TO NOT TRY TO TALK HE IS INTUBATED. FALLS BACK TO SLEEP, UNTIL HIS NAME IS SPOKEN.
--- NOTE | 2020-10-29 11:15 | NUR ---
PT MEDICATED PER REQUEST BY RESPIRATORY THERAPY, NEEDED TO REPOSITION BITE BLOCK. THE PROPOFOL IS OFF AND SHE WAS CONCERNED, SPOKE WITH CHARGE NURSE, MEDICATED WITH FENTANYL AND VERSED. PT TOLERATED THE REPOSITIONING WELL.
--- NOTE | 2020-10-29 12:59 | NUR ---
NOTICED PILLOW ON THE GROUND AND COVERS OFF, WENT IN TO CHECK ON THE PATIENT. HE STARTED MOUTHING "SCREAMING" AT ME. I ORIENTED HIM TO WHERE HE WAS AND WHY AND HE BEGAN "SCREAMING" AGAIN. RESTRAINTS CHECKED FOR PLACEMENT/ALL IV'S INTACT. RESTARTED ON THE PROPOFOL GTT.
--- NOTE | 2020-10-29 13:01 | NUR ---
NOTED, PT ALMOST IMMEDIATELY QUIETED DOWN.
--- NOTE | 2020-10-29 14:08 | NUR ---
CHECKING ON PATIENT, ASKED HOW HE WAS DOING, HE SHOOK HIS HEAD
--- NOTE | 2020-10-29 15:30 | NUR ---
PT COUGHING, DROOLING HEAVILY, I APPROACH HE TRIES TO YELL AROUND THE TUBE, PULLING ON HIS RESTRAINTS, ATTEMPTS TO REORIENT, HE AGAIN MOUTHS A BUNCH OF WORDS. ORALLY SUCTIONED, COPIOUS AMOUNTS OF THICK RETURN. PT BACK TO BEING CALM.
--- NOTE | 2020-10-29 18:15 | NUR ---
KAY SEEMS A LITTLE BIT MORE RESTLESS THIS AFTERNOON. HE IS PULLING AT HIS COVERS, TRYING TO THROW THEM OFF, MOUTHING WORDS AT ME. REORIENTATION DONE WITH PT SHAKING HIS HEAD AT ME. PT THEN TURNS HEAD AND "APPEARS" TO SLEEP. JACOME WITH GOOD URINE OUTPUT (1600). IV'S WITH PROPOFOL @ 20MCG/KG/MIN, LR @ 75ML/HR, NS @ 10ML/HR WITH THE ZOSYN INFUSING AT 12.5. LUNGS STILL COARSE WITH WHITE/BENAVIDES RETURN. LOTS OF ORAL SECRETIONS. PT NOW KICKING HIS LEGS, WILL SEE WHAT WE HAVE TO HELP SETTLE HIM DOWN.
--- NOTE | 2020-10-29 18:30 | NUR ---
SEROQUEL CRUSHED AND GIVEN PER TUBE FOR AGITATION.
--- NOTE | 2020-10-29 20:00 | NUR ---
ASSUMED CARE OF PT AT 1915. REPORT RECEIVED AT BEDSIDE. PT PRESENTS IN BED. INTUBATED. TOLERATING VENT FAIR/WELL. PROPOFOL AT 30 MCG'S FOR SEDATION. ETT SUCTIONING WITH RETURN OF MODERATELY THICK YELLOW SECRETIONS. WILL REVIEW CHART AND PLAN OF CARE FOR THIS PT.
--- NOTE | 2020-10-30 00:30 | NUR ---
HAVE INCREASED PROPOFOL TO 35 MCG'S WITH IMPROVED PT'S VENT TOLERANCE.
[2020-10-30 04:50] LABS: BASOPHILS ABSOLUTE AUTO 0.09 K/mm3 (0.00-0.23); BASOPHILS PERCENT AUTO 1 % (0-2); EOSINOPHILS ABSOLUTE AUTO 0.05 K/mm3 (0.00-0.68); EOSINOPHILS PERCENT AUTO 0 % (0-6); Hematocrit 24.6 % (37.0-53.0); Hemoglobin 7.6 g/dL (13.5-17.5); IMMATURE GRAN PERCENT AUTO 1 % (0-1); LYMPHOCYTES ABSOLUTE AUTO 0.59 K/mm3 (0.84-5.20); LYMPHOCYTES PERCENT AUTO 3 % (21-46); MONOCYTES PERCENT AUTO 4 % (4-13); Mean Corpuscular HGB 27.9 pg (26.0-34.0); Mean Corpuscular HGB Conc 30.9 g/dL (31.5-36.5); Mean Corpuscular Volume 90 fL (80-100); NEUTROPHILS ABSOLUTE AUTO 15.82 K/mm3 (1.96-9.15); NEUTROPHILS PERCENT AUTO 91 % (41-73); Platelet Count 303 K/mm3 (150-400); RDW Coefficient Variation 15.9 % (11.7-14.2); RDW Standard Deviation 52.5 fL (35.1-46.3); Red Blood Cell Count 2.72 M/mm3 (4.30-5.90); White Blood Cell Count 17.35 K/mm3 (4.00-11.30)
[2020-10-30 05:04] LABS: Anion Gap 7 mmol/L (6-16); Blood Urea Nitrogen 43 mg/dL (8-24); Bun/Creatinine Ratio 22.9 (12.0-20.0); CO2, Blood 22 mmol/L (21-32); Calcium, Blood 8.3 mg/dL (8.5-10.1); Chloride, Blood 113 mmol/L (98-108); Creatinine, Blood 1.88 mg/dL (0.60-1.20); Glomerular Filtration Rate 38 (60-); Glucose, Blood 301 mg/dL (70-99); Magnesium, Blood 2.1 mg/dL (1.6-2.4); Phosphorus, Blood 3.2 mg/dL (2.5-4.9); Sodium, Blood 142 mmol/L (136-145); Vancomycin, Random 11.5 ug/mL
--- NOTE | 2020-10-30 06:48 | NUR ---
PT HAS BEEN SOMEWHAT AGITATED WITH CARE. HAS BEEN INCONTINENT TO LOOSE STOOL. TOLERATING TUBE FEEDING WELL. SEDATION VACATION DONE THIS MORNING. HAVE SUCTIONED LIGHT YELLOW SECRETIONS PER ETT. WILL CONTINUE TO MONITOR PT, AND WILL REPORT OFF TO ONCOMING RN.
--- NOTE | 2020-10-30 10:43 | NUR ---
PT REMAINS ON VENT ON PROPOFOL GTT AT 35 MCG, LR AT 75 ML AND IVPB'S. SMALL AMOUNT OF LIGHT YELLOW SX NOTED. VSS. RT ABLE TO DECREASE FIO2 TO 30%.
--- NOTE | 2020-10-30 10:52 | NUR ---
PT IS INTUBATED AND SEDATED.
--- NOTE | 2020-10-30 17:40 | NUR ---
PT AGAIN CHECKED FOR DIARRHEA AND NOT PRESENT CURRENTLY. PT CONT NO TUBE FEEDING OF PIVOT AT 35ML/HR. IV TKO WITH IVPB. VSS. AFTER LATE AM AND EARLY PM SEDATION VACATION, PT WAS NOTED TO BE OPENING EYES AND SPONT MOVING EXT. WITH RISING BP AND VENT STABLE. AT THIS POINT PT WAS RETURNED TO FULL SEDATION AGAIN AT 35MCG AND REQESTED TRIAL WAS REPORTED TO DR MAYER. PT CONT WITH SMALL AMOUNT OF SECREATIONS BUT SEEMS TO BE HAVING SOME MUCUS PLUGS THAT HAVE LOWERED SATS FIO2 IS BACK UP TO 40% FOR LAST SEVERAL HOURS. I/O NOTED.
--- NOTE | 2020-10-30 17:51 | NUR ---
PT WAS TRANSFERED TO A BARIATRIC BED AND POWERGLIDE PLACED PER GABBIE LYON. PT HAS DAUGHTER VISITING. IS ON AIRVO WITH SETTINGS AT PT IS SUSPECT FOR SILENT ASPIRATION WITH AIRVO ON AND WILL PLACE S.T. FOR F/U EVAL. CARDIZEM GTT HAS BEEN INC. TO 15MCG HR PERSISTS AT 110-120+ RANGE. PT IS CURRENTLY C/O INC SOB ON 65% AND 95L. RT CHANGED OVER TO MASK. WILL FOLLOW AND REPORT OFF.
[2020-10-31 03:32] LABS: BASOPHILS ABSOLUTE AUTO 0.09 K/mm3 (0.00-0.23); BASOPHILS PERCENT AUTO 1 % (0-2); EOSINOPHILS ABSOLUTE AUTO 0.37 K/mm3 (0.00-0.68); EOSINOPHILS PERCENT AUTO 3 % (0-6); Hematocrit 25.5 % (37.0-53.0); IMMATURE GRAN ABSOLUTE AUTO 0.15 K/mm3 (0.00-0.10); IMMATURE GRAN PERCENT AUTO 1 % (0-1); LYMPHOCYTES ABSOLUTE AUTO 1.07 K/mm3 (0.84-5.20); LYMPHOCYTES PERCENT AUTO 8 % (21-46); MONOCYTES ABSOLUTE AUTO 0.59 K/mm3 (0.16-1.47); MONOCYTES PERCENT AUTO 4 % (4-13); Mean Corpuscular HGB 28.4 pg (26.0-34.0); Mean Corpuscular HGB Conc 31.4 g/dL (31.5-36.5); Mean Corpuscular Volume 90 fL (80-100); Mean Platelet Volume 11.2 fL (9.1-12.4); NEUTROPHILS ABSOLUTE AUTO 11.76 K/mm3 (1.96-9.15); NEUTROPHILS PERCENT AUTO 84 % (41-73); Platelet Count 338 K/mm3 (150-400); RDW Coefficient Variation 15.9 % (11.7-14.2); RDW Standard Deviation 52.9 fL (35.1-46.3); Red Blood Cell Count 2.82 M/mm3 (4.30-5.90); White Blood Cell Count 14.03 K/mm3 (4.00-11.30)
[2020-10-31 04:26] LABS: Bun/Creatinine Ratio 23.6 (12.0-20.0); Calcium, Blood 8.2 mg/dL (8.5-10.1); Creatinine, Blood 1.78 mg/dL (0.60-1.20); Magnesium, Blood 2.1 mg/dL (1.6-2.4); Potassium, Blood 3.7 mmol/L (3.5-5.5)
--- NOTE | 2020-10-31 06:16 | NUR ---
END OF SHIFT SUMMARY: PATIENT HAS RESTED COMFORTABLY ON VENT THIS SHIFT. PATIENT CONTINUES TO BE INTUBATED/SEDATED. PATIENT FOLLOWS COMMANDS AND VITALS HAVE REMAINED STABLE. PROPOFOL ADJUSTED TO 35 THIS MORNING DUE TO PATIENT BEING AWAKE WITH EYES OPEN ON VENT. NO SECREIONS PER NURSING BUT HAD A LOT WAS SUCTIONED OUT FROM RT UPON INITIAL ASSESSMENT. PATIENT HAS HAD HIGH RESIDUALS FROM OG BUT MONITORING CLOSELY 80-200. PATIENT TURNED Q2 AND RESTRAINTS REMAIN ORDERED/INTACT.
--- NOTE | 2020-10-31 08:37 | NUR ---
CARE ASSUMED 0700 PT INTUBATED AND SEDATED. PROPOFOL GTT 35 MCG/KG/HR, RESPONDS TO NOXIOUS STIMULI, GRIMACE DURING ORAL CARE. VENT SETTINGS: AC 16/470/5/35%, MODERATE THICK SECREATIONS. ETT 27 @ GUMS. PIVOT AT 35 ML/HR. RESIDUAL OF 10 ML. HR 70'S. NSR. VSS. SWB IN PLACE.
--- NOTE | 2020-10-31 10:53 | NUR ---
Provider Visit Dr. Putnam would like ETT advanced by 2 cm and new orders recieved for precussion, see emar.
--- NOTE | 2020-10-31 11:48 | NUR ---
Vent changes Dr. Putnam at bedside and vent changed to PS 5/5, 35%. Pt tolerating well. Following commands on Propofol 35 mcg/kg/min, opens eyes. mouthing words. Dr. Putnam would like to decrease propofol and start patient on precedex as tolerated. VSS.
--- NOTE | 2020-10-31 12:23 | NUR ---
FIO2 INCREASED TO 45% SOTERO, RT IN ROOM TO INCREASE FIO2 45%. Pt continues to destat to 87% frequently. Awake, eyes open at times and weak flakeboard line tender strength. Precedex started 0.2 mcg/kg/hr.
--- NOTE | 2020-10-31 13:00 | NUR ---
SBT Pt did not tolerate being on PS, SPO2 decreasing to 86% with increase in FIO2 and PS 10/5. Changed back to AC 16/470/5/50%, will decrease FIO2 as tolerated. SBT lasted around 45 minutes. Pt continues to be awake, opening eyes/following commands.
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
--- NOTE | 2020-10-31 18:38 | NUR ---
Shift Summary Pt sedated with Propofol 20 mcg/kg/min and Precedex 0.7 mcg/kg/hr. Attempted to titrate Propofol but patient thrashing in bed and treated per emar. Vent settings AC 16/470/5/40%, spo2 > 90%. Thick secreations continue to be present from ETT. VSS. NSR. SWB. Pivot @ goal of 30 ml/hr with 30 ml Q4 flush, BT active. Pt had liquid large BM at start of shift, stool softner held. Temp Bowers remains in place, sediment yellow urine. Will report to oncoming shift.
[2020-11-01 03:53] LABS: BASOPHILS ABSOLUTE AUTO 0.11 K/mm3 (0.00-0.23); BASOPHILS PERCENT AUTO 1 % (0-2); EOSINOPHILS ABSOLUTE AUTO 0.35 K/mm3 (0.00-0.68); EOSINOPHILS PERCENT AUTO 2 % (0-6); Hematocrit 30.9 % (37.0-53.0); Hemoglobin 9.5 g/dL (13.5-17.5); IMMATURE GRAN ABSOLUTE AUTO 0.15 K/mm3 (0.00-0.10); IMMATURE GRAN PERCENT AUTO 1 % (0-1); LYMPHOCYTES ABSOLUTE AUTO 1.03 K/mm3 (0.84-5.20); LYMPHOCYTES PERCENT AUTO 6 % (21-46); MONOCYTES ABSOLUTE AUTO 1.01 K/mm3 (0.16-1.47); MONOCYTES PERCENT AUTO 6 % (4-13); Mean Corpuscular HGB 28.3 pg (26.0-34.0); Mean Corpuscular HGB Conc 30.7 g/dL (31.5-36.5); Mean Corpuscular Volume 92 fL (80-100); NEUTROPHILS ABSOLUTE AUTO 14.18 K/mm3 (1.96-9.15); NEUTROPHILS PERCENT AUTO 84 % (41-73); Platelet Count 337 K/mm3 (150-400); RDW Coefficient Variation 16.1 % (11.7-14.2); RDW Standard Deviation 54.8 fL (35.1-46.3); Red Blood Cell Count 3.36 M/mm3 (4.30-5.90); White Blood Cell Count 16.83 K/mm3 (4.00-11.30)
[2020-11-01 04:08] LABS: Bun/Creatinine Ratio 24.1 (12.0-20.0); Calcium, Blood 8.7 mg/dL (8.5-10.1); Creatinine, Blood 1.62 mg/dL (0.60-1.20); Potassium, Blood 3.6 mmol/L (3.5-5.5)
--- NOTE | 2020-11-01 05:33 | NUR ---
END OF SHIFT SUMMARY: RUSSELL HAS REMAINED SEDATED ON THE VENT WITH ATTEMPTS TO KEEP SEDATION AT A LOW RATE. PATIENT GETS EXTREMELY AGITATED AT TIMES AND WILL LEAN UP IN THE BED HE GETS SO ANGRY. PATIENT FOLLOWS COMMANDS AT TIMES BUT REFUSES OTHERS. PROPOFOL AND PRECEDEX ON BOARD BUT A WEAN WAS COMPLETED THIS MORNING. PATIENT DID REALLY WELL, HOLDING SATS IN MID 90S BUT AGITATED AND GRIMACING. LUNG SOUNDS HAVE REMAINED CLEAR AND VITAL SIGNS HAVE REMAINED WNL DESPITE AN ELEVATED TEMPERATURE. TYLENOL AND A COLD BATH HAVE HELPED. RECTAL TUBE WAS INSERTED THIS EVENING DUE TO MULTIPLE LIQUID BMS DURING THE DAY AND A VERY LARGE LIQUID ONE UPON INITIAL ASSESSMENT ALL THE WAY UP HIS BACK. PATIENT RE-SEDATED ON MINIMAL SETTINGS UNTIL POTENTIAL EXTUBATION THIS MORNING
--- NOTE | 2020-11-01 08:15 | NUR ---
AM NOTE.... ASSUMED CARE OF PT AT 0700. PT IS INTUBATED AND SEDATED VENT SETTINGS AC:16/470/5/35% WITH O2 SATS >90%. ET TUBE IS 29 AT THE LIPS. PT HAS SMALL AMOUNT OF THICK BENAVIDES SECRETIONS SUCTIONED FROM THE ET TUBE. PT HAS SOME THICK CLEAR ORAL SECRETIONS. L/S CLEAR T/O DIM IN THE BASES. BT PRESENT AND HYPERACTIVE, TUBE FEED RUNNING PER ORDERS AT 30MLS/HR, 90MLS OF RESIDUALS REINSTILLED. PT HAS A RECTAL TUBE IN PLACE DRAINING LIQUID BROWN STOOLS TO GRAVITY. JACOME PATENT AND DRAINING CLOUDY YELLOW URINE TO GRAVITY. NO SWELLING NOTED ON ASSESSMENT. BP AND HR STABLE. PT WAKES TO ORAL CARE AND TURNS/PATIENCE CARE. WILL CONTINUE TO MONITOR.
[2020-11-01 08:28] LABS: Vancomycin, Trough 14.7 ug/mL (5.0-10.0)
--- NOTE | 2020-11-01 10:29 | NUR ---
PT UPDATE... DR. BROTHERS AT THE BEDSIDE FOR ASSESSMENT. PER DR. BROTHERS PROPOFOL WAS STOPPED AND THE PLAN IS TO EXTUBATE THE PT AT APROX 1045 IF PT CAN TOLERATE BEING ON SPONTAINIOUS AT 5/5 AND 30%. PT IS CURRENTLY TOLERATING THESE SETTINGS AND SEDATION. WILL CONTINUE TO MONITOR.
--- NOTE | 2020-11-01 11:45 | NUR ---
PT UPDATE.... PT MORE AWAKE, ATTEMPTED TO CLIMB OUT OF BED, THIS RN SAW HIM FROM THE DOOR AND ASKED WHAT HE WAS TRYING TO DO, THE PT STATED "I WANT YOU TO MOVE THAT WALL OVER TO THAT WALL SO I CAN KILL MYSELF." THIS RN THEN STATED THAT THE KIRKLAND COULD NOT BE MOVED, THIS RN THEN ASKED HOW HE PLANNED ON KILLING HIM SELF BY MOVING THE KIRKLAND AND THE PT GAVE THIS RN A CONFUSED LOOK AND SAID "I DON'T WANT TO KILL MYSELF, I JUST WANT THE WALL MOVED." SINCE EXTUBATION THE PT'S O2 NEEDS INCREASED FROM 2L NC TO 6L NC, PT ENCOURAGED TO COUGH AND DEEP BREATH. CALL LIGHT IN REACH, BED ALARM IS ON WILL CONTINUE TO MONITOR.
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
--- NOTE | 2020-11-01 20:00 | NUR ---
ASSUMED CARE OF PT AT 1915. REPORT RECEIVED AT BEDSIDE. PT WEARING BIPAP MASK, AND IS NOTED TO BE PULLING AT MASK AND AT HIS OXIMETER. REDIRECTED PT. PT MAINTAINS > 90 PERCENT SATURATIONS. PT HAS MOIST COUGH. ORAL CARE DONE WHICH REVEALS SOME LIGHT CASTS TO ROOF OF MOUTH. THIS REMOVED. WILL REVIEW CHART AND PLAN OF CARE FOR THIS PT.
--- NOTE | 2020-11-01 23:00 | NUR ---
CALL MADE TO DR BROTHERS CONCERNING PT'S INCREASING AGITATION AND CONFUSION. PT HAS BEEN PLACED IN SOFT WRIST RESTRAINTS EARLIER IN NIGHT SECONDARY TO HIM PULLING AT IV, CATHETER, OXIMETER, AND BIPAP MASK. PT PLACED BACK TO PRECEDEX DRIP AT 0.3 MCG'S. PRN HYDRALAZINE ORDER ALSO WAS RECEIVED. WILL CONTINUE TO MONITOR.
[2020-11-02 05:06] LABS: BASOPHILS ABSOLUTE AUTO 0.09 K/mm3 (0.00-0.23); BASOPHILS PERCENT AUTO 0 % (0-2); EOSINOPHILS ABSOLUTE AUTO 0.01 K/mm3 (0.00-0.68); EOSINOPHILS PERCENT AUTO 0 % (0-6); Hematocrit 28.1 % (37.0-53.0); Hemoglobin 8.6 g/dL (13.5-17.5); IMMATURE GRAN ABSOLUTE AUTO 0.41 K/mm3 (0.00-0.10); IMMATURE GRAN PERCENT AUTO 2 % (0-1); LYMPHOCYTES ABSOLUTE AUTO 0.88 K/mm3 (0.84-5.20); LYMPHOCYTES PERCENT AUTO 4 % (21-46); MONOCYTES ABSOLUTE AUTO 0.95 K/mm3 (0.16-1.47); MONOCYTES PERCENT AUTO 5 % (4-13); Mean Corpuscular HGB 27.8 pg (26.0-34.0); Mean Corpuscular HGB Conc 30.6 g/dL (31.5-36.5); Mean Corpuscular Volume 91 fL (80-100); Mean Platelet Volume 11.1 fL (9.1-12.4); NEUTROPHILS PERCENT AUTO 89 % (41-73); Platelet Count 367 K/mm3 (150-400); RDW Coefficient Variation 15.9 % (11.7-14.2); RDW Standard Deviation 53.5 fL (35.1-46.3); Red Blood Cell Count 3.09 M/mm3 (4.30-5.90); White Blood Cell Count 21.24 K/mm3 (4.00-11.30)
[2020-11-02 05:23] LABS: Bun/Creatinine Ratio 24.6 (12.0-20.0); Calcium, Blood 8.8 mg/dL (8.5-10.1); Creatinine, Blood 1.42 mg/dL (0.60-1.20); Potassium, Blood 3.2 mmol/L (3.5-5.5)
--- NOTE | 2020-11-02 06:21 | NUR ---
PT HAS BEEN GIVEN BREAK FROM BIPAP MASK. IS ON HIGHFLOW NASAL CANNULA WITH 6 L/M. PT MAINTAINING SATURATIONS > 90 PERCENT. PT HAS BEEN ABLE TO EXPECTORATE VERY THICK YELLOW COLORED SPUTUM. SUCTIONED THIS WITH YAUNKEUR. WILL CONTINUE TO MONITOR PT, AND WILL REPORT OFF TO ONCOMING RN.
--- NOTE | 2020-11-02 09:26 | NUR ---
AM NOTE... ASSUMED CARE OF PT AT 0700. PT IS ON PRECEDEX AT 0.3MCG/HR, SLEEPING BUT WAKES EASILY TO VERBAL STIMULI. PT IS CONFUSED BUT FOLLOWS DIRECTIONS AT THIS TIME. PT IS ON 6L NC WITH O2 SATS AT 96%, THIS WAS TITRATED DOWN TO 4L NC WITH O2 SATS >91%. L/S CLEAR AND DIM ON THE RIGHT SIDE COARSE ON THE LEFT UPPER AND LOWER LOBES. PT HAS WEAK LOOSE PRODUCTIVE COUGH WITH THICK BENAVIDES/YELLOW SECRETIONS. BT PRESENT AND HYPERACTIVE, ABD IS SOFT AND NONTENDER TO PALP. PT HAS A RECTAL TUBE IN PLACE WITH A SMALL AMOUNT OF LIQUID BROWN STOOLS. PT IS IN SR IN THE 60'S-70'S. PT IS HYPERTENSIVE WITH SBPs 170'S-190'S, PT MEDICATED PER EMAR WITH 20MG IV HYDRALAZINE WHICH BROUGHT HIS SBPs DOWN TO THE 170'S. NO EDEMA NOTED ON ASSESSMENT. JACOME IS PATENT AND DRAINING TO GRAVITY. WILL CONTINUE TO MONITOR.
--- NOTE | 2020-11-02 10:46 | NUR ---
PT UDPATE.... DOBHOFF PLACED D/T PT'S RISK OF ASPIRATION AND UNCONTROLLED HYPERTENSION. PT TOLERATED THE PROCEDURE WELL. PLACEMENT VERIFIED BY AUSCULTAION BY THIS RN. AWAITING CHEST XRAY TO VERIFY PLACEMENT WELL. WILL CONTINUE TO MONITOR.
--- NOTE | 2020-11-02 14:30 | NUR ---
PT UPDATE... DOBHOFF PLACEMENT VERIFIED BY DR. BROTEHRS AND TOBIN'D TO USE BY HER VERBAL ORDER. PT WAS GIVEN HIS DAILY NORVASC AND 20MG IV HYDRALAZINE WHICH GREATLY IMPROVED HIS SBP TO THE 130'S. PT'S O2 SATS HAVE IMPROVED AND HIS O2 HAS BEEN TITRATED FROM 6L NC TO 2L NC WITH O2 SATS >94%. PT'S DAUGHTER SIRI CALLED AND WAS UPDATED ON THE PT'S CURRENT CONDITION AND THE PLAN OF CARE. PER SIRI HER AND HER BROTHER PLAN ON COMING TO VISIT THE PT THIS WEEKEND FROM [place] OF [place]OWN. WILL CONTINUE TO MONITOR.
--- NOTE | 2020-11-02 14:56 | NUR ---
PT UPDATE... TUBE FEED STARTED PER ORDERS.
--- NOTE | 2020-11-02 18:35 | NUR ---
SHIFT SUMMARY... NO ACUTE NEGATIVE CHANGES NOTED SINCE THE PREVIOUS NOTES. PT'S TUBE FEEDS RUNNING AT 25MLS/HR WITH 75MLS H2O FLUSHES Q2HRS. DOBHOFF MARKING IS AT 70 AND SECURED WITH TAPE. PT HAS PRECEDEX GTT RUNNING AT 0.2 MCG. PT HAS BEEN PLEASENT AND COOPERATIVE WITH CARE. RECTAL TUBE HAS HAD VERY MINIMAL/UNMEASUREABLE OUTPUT. JACOME IS PATENT AND DRAINING TO GRAVITY. PT HAS WEAK COUGH BUT IS ABLE TO GET SOME SPUTUM UP, ORAL CARE DONE Q2 HRS THIS SHIFT. PT IS CURRENTLY ON 2L NC TITRATED DOWN FROM 6L AT THE START OF THIS SHIFT. PT CONTINUES TO BE HYPERTENSIVE, PT WAS MEDICATED WITH NORVASC AND HYDRALAZINE WHICH HELPED FOR A FEW HOURS. PT DENIES ANY PAIN THIS SHIFT. PT HAS NOT ATTEMPTED TO PULL ANY LINES OR TUBES THIS SHIFT. CALL LIGHT IN REACH, BED ALARM IS ON WILL CONTINUE TO MONITOR UNTIL REPORT IS GIVEN TO ONCOMING RN.
--- NOTE | 2020-11-02 22:08 | NUR ---
increased tube feeding up to 35ml/hr now at 2200. will plan to increase to goal rate of 45ml/hr at 0600 11/03/20 if no complications arise from tube feedings. will continue to monitor - tolerating well.
[2020-11-03 04:40] LABS: BASOPHILS ABSOLUTE AUTO 0.09 K/mm3 (0.00-0.23); BASOPHILS PERCENT AUTO 0 % (0-2); EOSINOPHILS ABSOLUTE AUTO 0.02 K/mm3 (0.00-0.68); EOSINOPHILS PERCENT AUTO 0 % (0-6); Hematocrit 28.6 % (37.0-53.0); Hemoglobin 8.8 g/dL (13.5-17.5); IMMATURE GRAN ABSOLUTE AUTO 0.45 K/mm3 (0.00-0.10); IMMATURE GRAN PERCENT AUTO 2 % (0-1); LYMPHOCYTES ABSOLUTE AUTO 1.21 K/mm3 (0.84-5.20); LYMPHOCYTES PERCENT AUTO 6 % (21-46); MONOCYTES ABSOLUTE AUTO 0.97 K/mm3 (0.16-1.47); MONOCYTES PERCENT AUTO 5 % (4-13); Mean Corpuscular HGB 28.5 pg (26.0-34.0); Mean Corpuscular HGB Conc 30.8 g/dL (31.5-36.5); Mean Corpuscular Volume 93 fL (80-100); Mean Platelet Volume 10.9 fL (9.1-12.4); NEUTROPHILS ABSOLUTE AUTO 17.28 K/mm3 (1.96-9.15); NEUTROPHILS PERCENT AUTO 87 % (41-73); Platelet Count 402 K/mm3 (150-400); RDW Coefficient Variation 16.1 % (11.7-14.2); Red Blood Cell Count 3.09 M/mm3 (4.30-5.90); White Blood Cell Count 20.02 K/mm3 (4.00-11.30)
[2020-11-03 05:01] LABS: Albumin, Blood 2.2 g/dL (3.4-5.0); Anion Gap 5 mmol/L (6-16); Blood Urea Nitrogen 44 mg/dL (8-24); Bun/Creatinine Ratio 28.4 (12.0-20.0); CO2, Blood 26 mmol/L (21-32); Calcium, Blood 9.2 mg/dL (8.5-10.1); Chloride, Blood 122 mmol/L (98-108); Creatinine, Blood 1.55 mg/dL (0.60-1.20); Glomerular Filtration Rate 48 (60-); Glucose, Blood 160 mg/dL (70-99); Magnesium, Blood 2.4 mg/dL (1.6-2.4); Phosphorus, Blood 2.2 mg/dL (2.5-4.9); Potassium, Blood 3.4 mmol/L (3.5-5.5); Sodium, Blood 153 mmol/L (136-145)
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
--- NOTE | 2020-11-03 09:32 | NUR ---
Care Assumed 0700/Provider Visit Pt awake and following directions. 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 Calm and Cooperative. Precedex placed on SB. On 2 L via NC, SPO2 > 90%. Continues to have productive cough, oral care provided and will suction secretion's as appropriate. Pivot @ goal, flushed with 200 ml of water via Dobhoff. Temp vu and rectal tube remain in place. Pt continues to have liquid diarrhea. Will attempt to DC rectal tube if possible. NSR. VSS. Dr. Dumont in to see patient, provider would like PT completed and have patient up to chair. if possible.
--- NOTE | 2020-11-03 12:44 | NUR ---
Daughter called Spoke to patients daughter, Shanda and updated on current care being provided. Pt spoke to daughter via phone and appears in cheerful mood after. Daughter and son to come in to visit tomorrow from [place].
--- NOTE | 2020-11-03 13:15 | NUR ---
Refusing care Pt does not wish for RT to provide CPT. Pt refusing oral care and bath. Pt states, "I just want to sleep." Easily irritable and Precedex remains on SB. Will reassess.
--- NOTE | 2020-11-03 15:00 | NUR ---
Therpy Pt passed swallow elevation, see emar, to be started on Puree diet. Pt moved from bed to chair with one person assist. VSS. NSR.
--- NOTE | 2020-11-03 15:55 | NUR ---
Dobhoff Removed Pt removed Dobhoff. Pt confused and states, "my nose was itchy." But calm and coopertive with care after. Educated on importance of not pulling lines or restraints may be needed again. Dr. Putnam initally decided not to removed Dobhoff due to patient refusing care, see previous note and requiring nutrtion/H20. Will attempt to feed patient as tolerated. Dr. Putnam does not want another Dobhoff placed. VSS. On 2 L via NC.
--- NOTE | 2020-11-03 18:14 | NUR ---
Shift Summary -PCU STATUS Precedex has remained off. Pt able to follow commands, sitting in chair looking outside for majority of shift. Anxious and irritable at times. Refusing care occasionally but was able to situp in chair and currently eating puree dinner. VSS. NSR. Temp vu in place (700 ml of cloudy yellow urine) and rectal tube in place (700 ml of liquid brown output). Pt removed Dobhuff and attempting to remove IV's but educated on importance of needing IVs. Pt states, "I'll leave them in." Continues to repeat, "My kids are coming to visit me tomorrow." Appears in cheerful mood when discussing daughter/son visiting. Pt also states, "I miss my ex " "I messed up." Sat with patient and discussed family visiting tomorrow. Will report to oncoming shift.
--- NOTE | 2020-11-03 23:20 | NUR ---
LOW CBG - 28 RN CHECKED 0000 BLOOD SUGAR AND INITIALLY IT READ 28, NOTIFIED MD AND PBX SUPERVISOR AND ADMINISTERED 25ML OF D50. RECHECKED 2-3 MINUTES AFTER AND CBG READING SHOWED 126. PBX SUPERVISOR ORDERED STAT LAB DRAW FOR GLUCLOSE. WILL SEE RESULTS OF THAT AND CONTINUE TO MONITOR. 0000 HUMULIN R DOSE OF COURSE HELD AT THIS TIME. THROUGHOUT THIS PROCESS, PT WAS ASYMPTOMATIC ON MY ASSESSMENT. CALL LIGHT WITHIN REACH, BED IN LOWEST POSITION WITH BED ALARM ON. WILL CONTINUE TO MONITOR.
[2020-11-03 23:59] LABS: Glucose, Blood 104 mg/dL (70-99)
[2020-11-04 03:18] LABS: BASOPHILS ABSOLUTE AUTO 0.08 K/mm3 (0.00-0.23); BASOPHILS PERCENT AUTO 1 % (0-2); EOSINOPHILS ABSOLUTE AUTO 0.23 K/mm3 (0.00-0.68); EOSINOPHILS PERCENT AUTO 2 % (0-6); Hematocrit 26.3 % (37.0-53.0); Hemoglobin 8.1 g/dL (13.5-17.5); IMMATURE GRAN PERCENT AUTO 1 % (0-1); LYMPHOCYTES ABSOLUTE AUTO 1.33 K/mm3 (0.84-5.20); LYMPHOCYTES PERCENT AUTO 9 % (21-46); MONOCYTES ABSOLUTE AUTO 0.68 K/mm3 (0.16-1.47); MONOCYTES PERCENT AUTO 5 % (4-13); Mean Corpuscular HGB 28.3 pg (26.0-34.0); Mean Corpuscular HGB Conc 30.8 g/dL (31.5-36.5); Mean Corpuscular Volume 92 fL (80-100); NEUTROPHILS ABSOLUTE AUTO 12.27 K/mm3 (1.96-9.15); NEUTROPHILS PERCENT AUTO 83 % (41-73); Platelet Count 404 K/mm3 (150-400); RDW Standard Deviation 54.3 fL (35.1-46.3); Red Blood Cell Count 2.86 M/mm3 (4.30-5.90); White Blood Cell Count 14.79 K/mm3 (4.00-11.30)
[2020-11-04 03:39] LABS: Albumin, Blood 2.1 g/dL (3.4-5.0); Albumin/Globulin Ratio 0.5 (0.8-1.8); Bilirubin, Total 0.2 mg/dL (0.1-1.0); Bun/Creatinine Ratio 29.9 (12.0-20.0); Calcium, Blood 8.8 mg/dL (8.5-10.1); Creatinine, Blood 1.64 mg/dL (0.60-1.20); Globulin, Blood 4.6 g/dL (2.2-4.0); Magnesium, Blood 2.3 mg/dL (1.6-2.4); Potassium, Blood 3.1 mmol/L (3.5-5.5); Total Protein, Blood 6.7 g/dL (6.4-8.2)
--- NOTE | 2020-11-04 05:17 | NUR ---
SHIFT SUMMARY PT RESTED A LOT THROUGHOUT THE NIGHT. MUCH MORE THAN THE NIGHT BEFORE. ALERT, BUT NOT ORIENTED. TELE NSR. SATS >90% ON 2LNC - DID NOT WEAR BIPAP AT ALL THROUGHOUT THE NIGHT. JACOME IN PLACE - DRAINING TO GRAVITY, PATIENCE CARE PERFORMED . 700ML UOP. RECTAL TUBE BAG WAS CHANGED, NOTING ABOUT 400ML OF LIQUID STOOL COLLECTED. SEE PREVIOUS NOTE REGARDING BLOOD SUGARS. CBG LOW 28, AND 35. CBG'S CHAGNED TO Q2 AND ADDED D10 INFUSION AT 75ML/HR X1 LITER. AROUND 0400 AGAIN, PT BECAME ANTSY AND WAS STATING THAT HE WAS GOING HOME AGAIN. HE BEGAN TO TAKE OFF TELE LEADS, HIS O2 PROBE, AND PICKING AT HIS JACOME CATHETER. RN ATTEMPTED TO GIVE PRN SEROQUEL, BUT PT SPAT OUT MEDS/PUDDING, AND BECAME FRUSTRATED WITH ME ATTEMPTING TO GIVE MEDS AND FOOD AGAIN. BILAT SOFT WRIST RESTRAINTS WERE PLACED ON PATIENT, AND PT SEEMS TO BE TOLERATING WELL AT THIS TIME. Q4 ORAL CARE DONE. VSS, BP ELEVATED A LITTLE AROUND MIDNIGHT AND PRN HYDRALAZINE WAS GIVEN. CALL LIGHT WITHIN REACH, BED IN LOWEST POSITION. WILL CONTINUE TO MONITOR.
--- NOTE | 2020-11-04 08:00 | NUR ---
PT IS AWAKE AND ALERT. ORIENTED TO PERSON AND PLACE. PT THINKS THAT THE DATE IS November. CONFUSED CONVERSATION. PT GIVEN A BREAK FOR WRIST RESTRAINTS AND HE BEGAN TO DISROBE AND REMOVE O2, EKG ELECTRODES, AND PULL AT IV'S. SOFT WRIST RESTRAINTS REMAIN IN PLACE FOR PT SAFETY. PT COOPERATIVE WITH CARE OVERALL, BUT IS VERY FORGETFUL. PT DENIES PAIN OR SOB. TEMP 98.9. ECG SHOWS SR-SBP TRENDING 110'S NORVASC HELD THIS AM. PT ABLE TO TAKE PO MEDS IN APPLESAUCE WITH LOTS OF VERBAL PROMPTS. ORAL CARE DONE BEFORE GIVEN PT ANYTHING PO-TOLERATED WELL. PT APPETITE POOR. ONLY ATE 4 BITES OF HOT CEREAL AND DRANK 120 CC OF APPLEJUICE. CBG 121-D10 CONTINUES AT 75 CC /HR.
[2020-11-04 08:52] LABS: Vancomycin, Trough 20.3 ug/mL (5.0-10.0)
--- NOTE | 2020-11-04 10:07 | NUR ---
PT TOLD DR. PASCUAL THAT HE FEELS IT IS TIME TO BE "LET GO." PT DENIES SUICIDAL IDEATION, AND SEEMS TO HAVE BEEN SPEAKING TO ESCALATION OF CARE.
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
--- NOTE | 2020-11-04 13:16 | NUR ---
PT REMAINS AGITATED AND CONFUSED. INTERMITTENTLY NON-COOPERATIVE WITH CARE. PT PULLING ON RESTRAINTS, ATTEMPTING TO REMOVE IV AND GET OOB-MED WITH SEROQUEL 50 MG PO. PT ABLE TO DRINK A WHOLE GLUCERNA WITH RN ASSIST-VERY SLOWLY OVER APROX 2 HOURS.
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
--- NOTE | 2020-11-04 17:00 | NUR ---
PT CONTINUES TO BE IMPULSIVE, CONFUSED, AND INTERMITTENTLY AGITATED-LAST MED WITH ZYPREXA 10 MG IM @ 1542. PT INCONTINENT OF SCANT AMOUNT OF STOOL AROUND RECTAL TUBE- RECTAL TUBE RE-INSERTED AFTER PT INCONTINENT OF 4 LARGE, LIQUID, BROWN STOOLS. COCCYX RED-NEW MEPILEX PLACED AFTER EACH STOOL. RIGHT FOREARM IV NOT PATENT-DISCONTINUED. DRESSING CHANGE COMPLETED TO EXTENDED DWELL CATHETER-SEE INTERVENTIONS. CBG 342-REPORT PHONED TO CAMRON FRANCO IN PREP TO TRANSFER PT TO ROOM 352.
--- NOTE | 2020-11-04 18:45 | NUR ---
SHIFT SUMMARY PT TRANSFERRED TO UNIT FROM ICU AT 1740, RECEIVED RPEORT FROM CAMRON CRUZ. PT A&O TO SELF AND FAMILY, CONFUSED, REDIRECTABLE AT THIS TIME. COOPERATIVE TO CARE. PT's DAUGHTER AT BEDSIDE THIS SHIFT. PT CONTINUES ON SOFT WRIST RESTRAINTSFOR SAFETY AND TO PROTECT LINES, PT CONTINUES TO DISROB AND PULL ON RESTRAINTS. NO C/O ANY PAIN OR ANY DISCOMFORT. PT ON 2LPM O2 VIA NC, SATS >92%. BED AT LOWEST POSITION W/ ALARM ON. CALL LIGHT WITHIN REACH.
[2020-11-05 05:20] LABS: BASOPHILS ABSOLUTE AUTO 0.11 K/mm3 (0.00-0.23); BASOPHILS PERCENT AUTO 1 % (0-2); EOSINOPHILS ABSOLUTE AUTO 0.37 K/mm3 (0.00-0.68); EOSINOPHILS PERCENT AUTO 3 % (0-6); Hematocrit 27.1 % (37.0-53.0); Hemoglobin 8.2 g/dL (13.5-17.5); IMMATURE GRAN ABSOLUTE AUTO 0.18 K/mm3 (0.00-0.10); IMMATURE GRAN PERCENT AUTO 2 % (0-1); LYMPHOCYTES ABSOLUTE AUTO 1.88 K/mm3 (0.84-5.20); LYMPHOCYTES PERCENT AUTO 15 % (21-46); MONOCYTES ABSOLUTE AUTO 0.61 K/mm3 (0.16-1.47); MONOCYTES PERCENT AUTO 5 % (4-13); Mean Corpuscular HGB 27.8 pg (26.0-34.0); Mean Corpuscular HGB Conc 30.3 g/dL (31.5-36.5); Mean Corpuscular Volume 92 fL (80-100); Mean Platelet Volume 11.3 fL (9.1-12.4); NEUTROPHILS ABSOLUTE AUTO 9.09 K/mm3 (1.96-9.15); NEUTROPHILS PERCENT AUTO 74 % (41-73); Platelet Count 425 K/mm3 (150-400); RDW Coefficient Variation 15.7 % (11.7-14.2); RDW Standard Deviation 52.6 fL (35.1-46.3); Red Blood Cell Count 2.95 M/mm3 (4.30-5.90); White Blood Cell Count 12.24 K/mm3 (4.00-11.30)
[2020-11-05 05:41] LABS: Albumin, Blood 2.2 g/dL (3.4-5.0); Anion Gap 6 mmol/L (6-16); Blood Urea Nitrogen 47 mg/dL (8-24); Bun/Creatinine Ratio 29.4 (12.0-20.0); CO2, Blood 24 mmol/L (21-32); Calcium, Blood 8.7 mg/dL (8.5-10.1); Chloride, Blood 115 mmol/L (98-108); Glomerular Filtration Rate 46 (60-); Glucose, Blood 385 mg/dL (70-99); Phosphorus, Blood 3.2 mg/dL (2.5-4.9); Potassium, Blood 3.3 mmol/L (3.5-5.5); Sodium, Blood 145 mmol/L (136-145)
--- NOTE | 2020-11-05 06:09 | NUR ---
SHIFT SUMMARY- PT. A&O WITH INTERMITTENT CONFUSION. AGITATED LAST NIGHT, ATTEMPTING TO GET OOB MULITPLE TIMES T/O THE NIGHT, AND PULLING AT LINES/TUBES. PT. HIGH FALL RISK. NOTIFIED HOSPITALIST AND PATRICIA PLACED WITH AJIT SOFT WRIST RESTRAINTS. PT. AWAKE THE ENTIRE NIGHT YELLING OUT FREQUENTLY. REPOSITIONED PRN FOR COMFORT AND SECURED LINES/TUBES. JACOME CATHETER PATENT AND DRAINING, RECTAL TUBE ALSO IN PLACE. PT. DENIED COMPLAINTS OF PAIN, REQUESTING FREQUENT PO FLUIDS DURING THE NIGHT. HYDRATION PROVIDED, TOLERATED WELL. CLINIMIX INFUSING, VSS. CALL LIGHT WITHIN REACH, SIDE RAILS UPX3, AND BED ALARM ON FOR SAFETY. WILL CONT TO MONITOR.
--- NOTE | 2020-11-05 15:00 | NUR ---
AGITATION/COMBATIVE PATIENT PULLING ON RESTRAINTS AND ABLE TO TAKE THEM OFF. REFUSED TO LET STAFF REPLACE WRIST RESTRAINTS AND KICKING/PUNCHING STAFF. UNCOOPERATIVE. RECEIVED V.O. FROM DR. PASCUAL FOR ONE TIME DOSE 25 MG BENADRY AND BILATERAL ANKLE RESTRAINTS TO PROTECT STAFF. ORDERS UPDATED.
--- NOTE | 2020-11-05 17:04 | NUR ---
Shift Summary A/Ox2 to self and place. At start of shift, rectal tube was leaking. Patient pulled rectal tube and Dr. Dumont notified. V.O. ok to leave rectal tube out. So far, patient only had one episode of smear BM this shift. Patient also kept trying to climb out of bed and ended up scraping anterior L chakraborty, photo taken and placed in chart. Patient has been agitated, impulsive, combative, manipulative, and verbally aggressive. Also was able to get self out of wrist restraints. Patient kicking and punching staff. Mepilex placed to coccyx and bilateral chakraborty. Four point restraints on for staff and patient safety. Medicated for agitation per EMAR with little effect. Aarti called and requested staff NOT to call Aarti for patient as "he is very manipulative" and for staff to NOT give Aarti's cell phone [phone]/PT worked with patient today. Continues to be a feeder. Appetite is great, clinimix d/c per Dr. Dumont. Bowers patent and draining. TM.
--- NOTE | 2020-11-06 06:30 | NUR ---
SHIFT SUMMARY- PT. AGITATED DURING THE NIGHT, CONTINUALLY PULLING ON JACOME CATHETER AND ON RESTRAINTS. STAT LOCK FOR JACOME REPLACED MULTIPLE TIMES DUE TO PT. PULLING OFF. PT. CONFUSED, RESTLESS ABLE TO GET OUT OF SOFT WRIST RESTRAINTS. PATRICIA WITH AJIT WRIST TUFF CUFF RESTRAINTS AND AJIT ANKLE SOFT RESTRAINTS IN PLACE. PT. GIVEN BEDTIME SNACKS AND PO FLUIDS, TOLERATED WELL. HAD 1 BM DURING THE NIGHT, ATTENDS IN PLACE AND JACOME CATHETER PATENT AND DRAINING. REPOSITIONED FOR COMFORT PRN. DENIED ANY PAIN OR DISCOMFORT T/O THE NIGHT. MEDICATED WITH SCHEDULED SEROQUEL AND PRN IM ZYPREXA LAST NIGHT. PT. REMAINED RESTLESS MOST OF THE NIGHT, FELL ASLEEP EARLY AM. PT. RESTING QUIETLY IN BED AT THIS TIME, NO APPARENT DISTRESS NOTED. VSS. CALL LIGHT WITHIN REACH, SIDE RAILS UPX3, AND BED ALARM ON. WILL CONT TO MONITOR.
[2020-11-06 08:26] LABS: BASOPHILS ABSOLUTE AUTO 0.12 K/mm3 (0.00-0.23); BASOPHILS PERCENT AUTO 1 % (0-2); EOSINOPHILS ABSOLUTE AUTO 0.47 K/mm3 (0.00-0.68); EOSINOPHILS PERCENT AUTO 5 % (0-6); Hematocrit 26.9 % (37.0-53.0); Hemoglobin 8.3 g/dL (13.5-17.5); IMMATURE GRAN ABSOLUTE AUTO 0.12 K/mm3 (0.00-0.10); IMMATURE GRAN PERCENT AUTO 1 % (0-1); LYMPHOCYTES ABSOLUTE AUTO 0.95 K/mm3 (0.84-5.20); LYMPHOCYTES PERCENT AUTO 10 % (21-46); MONOCYTES ABSOLUTE AUTO 0.29 K/mm3 (0.16-1.47); MONOCYTES PERCENT AUTO 3 % (4-13); Mean Corpuscular HGB 28.5 pg (26.0-34.0); Mean Corpuscular HGB Conc 30.9 g/dL (31.5-36.5); Mean Corpuscular Volume 92 fL (80-100); Mean Platelet Volume 11.3 fL (9.1-12.4); NEUTROPHILS ABSOLUTE AUTO 7.96 K/mm3 (1.96-9.15); NEUTROPHILS PERCENT AUTO 80 % (41-73); Platelet Count 412 K/mm3 (150-400); RDW Coefficient Variation 15.3 % (11.7-14.2); RDW Standard Deviation 51.9 fL (35.1-46.3); Red Blood Cell Count 2.91 M/mm3 (4.30-5.90); White Blood Cell Count 9.91 K/mm3 (4.00-11.30)
[2020-11-06 08:35] LABS: Albumin, Blood 2.2 g/dL (3.4-5.0); Anion Gap 3 mmol/L (6-16); Blood Urea Nitrogen 32 mg/dL (8-24); Bun/Creatinine Ratio 22.9 (12.0-20.0); CO2, Blood 27 mmol/L (21-32); Calcium, Blood 8.4 mg/dL (8.5-10.1); Chloride, Blood 117 mmol/L (98-108); Glomerular Filtration Rate 54 (60-); Glucose, Blood 108 mg/dL (70-99); Phosphorus, Blood 4.3 mg/dL (2.5-4.9); Potassium, Blood 3.1 mmol/L (3.5-5.5); Sodium, Blood 147 mmol/L (136-145)
--- NOTE | 2020-11-06 08:36 | NUR ---
PT BLOOD GLUCOSE AND O2 SATURATION THIS AM DURING BEDSIDE SHIFT REPORT, THIS RN NOTED PT EXHIBITED DIAPHORESIS, NO RESPONSE TO VERBAL AND PAINFUL STIMULI, AND LABORED RESIRATIONS WITH PERIODS OF APNEA WHEN SUPINE. THIS RN AND MOTORBIKE COURIER CHECKED PT'S VITALS AND BLOOD SUGAR. CBG NOTED TO BE 10 AND SATURATIONS IN THE 70S. ED TRANSPORTER'S IN ROOM TO ASSIST WITH PT CARE AND STABILIZATION. THIS RN CALLED DR. PASCUAL AT 0730, BUT GOT VOICEMAIL. ED TRANSPORTER'S ASSISTED WITH 25 ML OF DEXTROSE INFUSION VIA IV PER HYPOGLYCEMIA PROTOCOL. CBG CAME UP TO 87, THEN DOWN TO 52. SECOND 25 ML OF DEXTROSE INFUSED AND CBG STABILIZED TO 108. THIS RN CALLED DR. PASCUAL AT 0750 AND LEFT VOICEMAIL ON PT STATUS. PT'S SATURATIONS REMIANED 75-85% ON 6 L O2, SO RT WAS CALLED AND ASSISTED IN ROOM. PT HAS NOW STABILIZED WITH SATS AT 92% ON 2 L O2 AND PT IS EATING BREAKFAST WITH ASSISTANCE. PT'S LOC IS NOW ALERT. THIS RN SPOKE WITH DR. PASCUAL AT APPROXIMATELY 0805 VIA TELEPHONE AND RECIEVED Q4H CBG CHECK ORDERS. THIS RN SPOKE WITH DR. PASCUAL IN PERSON ABOUT PT STATUS AT THE BEDSIDE AT APPROXIMATELY 0820. PT IS NOW IN BED, CALL LIGHT IN REACH, BED LOW POSITION WITH POSY VEST AND X4 RESTRAINTS IN PLACE. THIS RN WILL CONTINUE TO MONITOR PT STATUS.
[2020-11-06 11:31] LABS: Vancomycin, Trough 16.4 ug/mL (5.0-10.0)
--- NOTE | 2020-11-06 19:35 | NUR ---
SHIFT SUMMARY PT IS AOX2-3. PT DENIES PAIN, N/V, SOB. PT IS ONE ASSIST IN ROOM. PT REMAINS IN POSY VEST, SOFT ANKLE RESTRAINTS X2, AND LOCK WRIST RESTRAINTS X2. PT HAD HYPOGLYCEMIC AND HYPOXIC EPISODE THIS AM-SEE NOTE. PT IS ON RA. PT HAD SOFT BM X2 THIS SHIFT. PT'S SON AND DAUGHTER IN TO VISIT THIS LAYNE. NO PROCEDURES DONE THIS SHIFT. PT IS IN BED, CALL LIGHT IN REACH, BED IN LOW POSITION, RESTRAINTS IN PLACE.
--- NOTE | 2020-11-06 20:33 | NUR ---
PT. WITH BS OF 404. AWAKE AND ALERT, ASYMPTOMATIC AT THIS TIME. RECEIVING FLUIDS D10, STOPPED INFUSION AND NOTIFIED STELLA TOSCANO. INSTRUCTED TO HOLD INFUSION UNLESS BS < THAN 150. WILL CONT TO MONITOR.
[2020-11-07 00:12] LABS: Glucose, Blood 648 mg/dL (70-99)
[2020-11-07 01:38] LABS: Glucose, Blood 589 mg/dL (70-99)
--- NOTE | 2020-11-07 07:16 | NUR ---
SHIFT SUMMARY- PT. BS LAST NIGHT 400, D10W INFUSION STOPPED. HOSPIATLIST NOTIFIED, INSTRUCTED TO MONITOR. RECHECK OF >500, ORDER GIVEN TO ADMINISTER INSULIN PER LOW SS. PT. HAD BS IMPROVED T/O THE NIGHT. NEW ORDERS RECEIVED FROM HOSPITALIST THIS AM TO ADD LANTUS. PT. AWAKE T/O THE NIGHT, RESTLESS AND PULLING ON RESTRAINTS. REPOSITIONED FOR COMFORT PRN. NO APPARENT DISTRESS NOTED. REPORT GIVEN TO AM RN.
[2020-11-07 08:30] LABS: BASOPHILS ABSOLUTE AUTO 0.15 K/mm3 (0.00-0.23); BASOPHILS PERCENT AUTO 1 % (0-2); EOSINOPHILS ABSOLUTE AUTO 0.18 K/mm3 (0.00-0.68); EOSINOPHILS PERCENT AUTO 1 % (0-6); Hematocrit 26.2 % (37.0-53.0); Hemoglobin 7.9 g/dL (13.5-17.5); IMMATURE GRAN PERCENT AUTO 1 % (0-1); LYMPHOCYTES ABSOLUTE AUTO 1.05 K/mm3 (0.84-5.20); LYMPHOCYTES PERCENT AUTO 8 % (21-46); MONOCYTES ABSOLUTE AUTO 0.58 K/mm3 (0.16-1.47); MONOCYTES PERCENT AUTO 4 % (4-13); Mean Corpuscular HGB 27.8 pg (26.0-34.0); Mean Corpuscular HGB Conc 30.2 g/dL (31.5-36.5); Mean Corpuscular Volume 92 fL (80-100); Mean Platelet Volume 11.6 fL (9.1-12.4); NEUTROPHILS ABSOLUTE AUTO 11.06 K/mm3 (1.96-9.15); NEUTROPHILS PERCENT AUTO 84 % (41-73); Platelet Count 413 K/mm3 (150-400); RDW Coefficient Variation 15.2 % (11.7-14.2); RDW Standard Deviation 51.7 fL (35.1-46.3); Red Blood Cell Count 2.84 M/mm3 (4.30-5.90); White Blood Cell Count 13.12 K/mm3 (4.00-11.30)
[2020-11-07 08:54] LABS: Bun/Creatinine Ratio 23.8 (12.0-20.0); Calcium, Blood 8.5 mg/dL (8.5-10.1); Creatinine, Blood 1.68 mg/dL (0.60-1.20); Magnesium, Blood 1.9 mg/dL (1.6-2.4); Phosphorus, Blood 3.2 mg/dL (2.5-4.9); Potassium, Blood 3.9 mmol/L (3.5-5.5)
--- NOTE | 2020-11-07 10:14 | NUR ---
LAB RESULTS CAME BACK WITH CBG OF 565. DR DIALLO NOFITFIED AND INSTURTED PT TO BE TREATED WITH THE LOW CS OF 5 UNITS AND RECHECK IN 4 HRS. WILL CONTINUE TO MONITOR.
--- NOTE | 2020-11-07 17:53 | NUR ---
PT AOX1 AND HAS CONFUSING STEADY THOURGHOUT THE DAY. PT WILL BE PLEASANT ONE TIME WITH CARE AND THEN CAN DECIDE HE DOES NOT LIKE ANYONE. HIS MOODS CHANGE VERY FAST. PT TALKS CONSTANTLY REALLY MAKING NO SENSE ON WHAT HE IS TALKING ABOUT. JACOME CATH REMOVED AND CONDOM CATH HAS BEEN PLACE. PT CONTINUES TO NEED RESTRAINTS FOR ALL EXTREMETIES AND HE IS CONSTANTLY MOVING AND TRYING TO GET OUT OF BED. PT IS FREQUENTLY NEEDEDING REPOSITIONED AND CAMERAS ARE MONITORING WELL TO KEEP HIM SAFE. BED ALARM IN PLACE AND CALL LIGHT WITHIN REACH WILL CONTINUE TO MONITOR.
[2020-11-08 05:13] LABS: BASOPHILS ABSOLUTE AUTO 0.12 K/mm3 (0.00-0.23); BASOPHILS PERCENT AUTO 1 % (0-2); EOSINOPHILS ABSOLUTE AUTO 0.36 K/mm3 (0.00-0.68); EOSINOPHILS PERCENT AUTO 3 % (0-6); Hematocrit 25.8 % (37.0-53.0); IMMATURE GRAN ABSOLUTE AUTO 0.12 K/mm3 (0.00-0.10); IMMATURE GRAN PERCENT AUTO 1 % (0-1); LYMPHOCYTES ABSOLUTE AUTO 1.17 K/mm3 (0.84-5.20); LYMPHOCYTES PERCENT AUTO 10 % (21-46); MONOCYTES ABSOLUTE AUTO 0.45 K/mm3 (0.16-1.47); MONOCYTES PERCENT AUTO 4 % (4-13); Mean Corpuscular HGB 28.5 pg (26.0-34.0); Mean Corpuscular Volume 92 fL (80-100); Mean Platelet Volume 11.8 fL (9.1-12.4); NEUTROPHILS ABSOLUTE AUTO 9.97 K/mm3 (1.96-9.15); NEUTROPHILS PERCENT AUTO 82 % (41-73); Platelet Count 433 K/mm3 (150-400); RDW Coefficient Variation 15.1 % (11.7-14.2); RDW Standard Deviation 51.1 fL (35.1-46.3); Red Blood Cell Count 2.81 M/mm3 (4.30-5.90); White Blood Cell Count 12.19 K/mm3 (4.00-11.30)
[2020-11-08 05:35] LABS: Albumin, Blood 2.4 g/dL (3.4-5.0); Anion Gap 13 mmol/L (6-16); Blood Urea Nitrogen 45 mg/dL (8-24); CO2, Blood 20 mmol/L (21-32); Calcium, Blood 8.7 mg/dL (8.5-10.1); Chloride, Blood 112 mmol/L (98-108); Creatinine, Blood 1.61 mg/dL (0.60-1.20); Glomerular Filtration Rate 46 (60-); Glucose, Blood 515 mg/dL (70-99); Magnesium, Blood 2.2 mg/dL (1.6-2.4); Phosphorus, Blood 3.2 mg/dL (2.5-4.9); Potassium, Blood 3.7 mmol/L (3.5-5.5); Sodium, Blood 145 mmol/L (136-145)
--- NOTE | 2020-11-08 06:18 | NUR ---
SHIFT SUMMARY PATIENT ALERT AND ORIENTED TO SELF. HAD NO COMPLAINTS OF PAIN OR SHORTNESS OF BREATH. PATIENT DESATED WHILE SLEEPING DUE TO PERIODS OF APNEA. PATIENT PLACED ON 3 LITERS O2 VIA NASAL CANULA WHILE SLEEPING. POWERGLIDE PATENT AND FLUSHED. BED IN LOWEST POSITION WITH WHEELS LOCKED AND ALARM ON. CALL LIGHT WITHIN REACH. REPORT GIVEN TO ONCOMING RN.
--- NOTE | 2020-11-08 18:17 | NUR ---
NO ACUTE CHANGES. BLOOD SUGARS HAVE BEEN HIGH , INSULIN GIVEN PER EMAR. PT HAS SLEPT , REMAINS IN RESTRAINTS HAS HE CONTINUES TO BE THREAT TO SELF AND STAFF. PT EATING DINNER AT THIS TIME.
--- NOTE | 2020-11-08 19:20 | NUR ---
ASSUMED CARE RECEIVED REPORT FROM CAMRON ZELAYA. PT ASLEEP, IN NAD. NO ACUTE NEEDS ASSESSED AT THIS TIME. CALL LIGHT, POSSESSIONS IN REACH, BED IN LOW AND LOCKED POSITION WITH ALARMS ON.
--- NOTE | 2020-11-09 04:34 | NUR ---
DEVELOPMENTAL TRAINING COUNSELOR SUMMARY PT ASLEEP, IN NAD. SLEPT THROUGHOUT THE NIGHT. NO ACUTE CHANGES IN CONDITION NOTED. RESTRAINTS CONTINUE ORDERED. O2 SATS >92% ON 3L/NC. NO ACUTE NEEDS ASSESSED AT THIS TIME. CALL LIGHT, POSSESSIONS IN REACH, BED IN LOW AND LOCKED POSITION WITH ALARMS ON. WILL CONTINUE TO PROVIDE CARE UNTIL REPORT GIVEN TO ONCOMING RN.
[2020-11-09 09:35] LABS: Glucose, Blood 827 mg/dL (70-99)
[2020-11-09 12:16] LABS: Vancomycin, Trough 16.6 ug/mL (5.0-10.0)
[2020-11-09 12:20] LABS: Glucose, Blood 766 mg/dL (70-99)
--- NOTE | 2020-11-09 18:33 | NUR ---
SHIFT SUMMARY PT HAS HAD ELEVATED BLOOD SUGARS THROUGH OUT THE SHIFT. INSULIN ORDERS HAVE BEEN CHANGED. PT'S BLOOD SUGAR 827 THIS AM AND NOW IN 300'S. PT PULLED POWERGLIDE THIS EVENING. SITE WNL. NO ACUTE CHANGES THIS SHIFT. WILL CONTINUE TO MONITOR AND REPORT TO ONCOMING RN. BED ALARM ON FOR SAFETY.
--- NOTE | 2020-11-10 05:30 | NUR ---
SHIFT SUMMARY ASSUMED CARE OF PT AT 1900. PT IS A/OX1. HEART SOUNDS REGULAR, LUNG SOUNDS DIMINISHED. PT WAS INCONTIENT OF URINE. PT HAS SORE INBETWEEN BUTTOCK, MEPILEX APPLIED. PT WAS IN PATRICIA RESTRAINT T/O THE NIGHT DUE TO IMPULSIVE AND CONFUSED BEHAVIOR. PT BLOOD SUGAR INCREASED TO OVER 400 THIS AM, HOSPITALIST NOTIFED AT 0400 AND ORDERED AC DOSE OF INSULIN. MONITORING PT. CALL LIGHT IN REACH, BED IN LOWEST POSTION.
[2020-11-10 12:02] LABS: Creatinine, Blood 1.87 mg/dL (0.60-1.20); Vancomycin, Trough 17.3 ug/mL (5.0-10.0)
--- NOTE | 2020-11-10 18:28 | NUR ---
SHIFT SUMMARY PT HAS BEEN UP IN THE CHAIR A LOT OF THE SHIFT. PT WORKED WITH PHYSICAL THERAPY AND OCCUPATIONAL THERAPY THIS SHIFT. PT HAD A SHOWER. PT HAS BEEN COOPERATIVE WITH CARE. PT HAS BEEN DRINKING PLENTY OF FLUIDS BUT HAS TO BE ENCOURGED TO EAT. PT'S BLOOD SUGARS HAVE BEEN WNL. NO ACUTE CHANGES THIS SHIFT. PATRICIA VEST RESTRAINT IN PLACE. WILL CONTINUE TO MONITOR AND REPORT TO ONCOMING RN.
--- NOTE | 2020-11-11 00:21 | NUR ---
SOMNOLENCE DR. LEARY AWARE THAT 300MG SEROQUEL WAS HELD HS D/T SOMNOLENCE. DR. LEARY STATES OK TO GIVE 300MG SEROQUELL NON SCHEDULED ONCE IF NEEDED DURING THE SHIFT. NURSE NOTIFY PLACED.
--- NOTE | 2020-11-11 01:35 | NUR ---
BLOOD GLUCOSE 400 PT BG 400 WITH Q4HR CHECK AT 0123, DR. BOWENS CALLED AND NOTIFIED. RECEIVED ORDER TO GIVE 15 UNITS ONCE OF REGULAR INSULIN BASED ON HIGH SLIDING SCALE FOR BG GREATER THAN 350.
[2020-11-11 04:55] LABS: Hematocrit 26.5 % (37.0-53.0); Mean Corpuscular HGB Conc 30.2 g/dL (31.5-36.5); Mean Corpuscular Volume 93 fL (80-100); Mean Platelet Volume 12.1 fL (9.1-12.4); Platelet Count 430 K/mm3 (150-400); RDW Coefficient Variation 15.8 % (11.7-14.2); RDW Standard Deviation 53.5 fL (35.1-46.3); Red Blood Cell Count 2.86 M/mm3 (4.30-5.90)
--- NOTE | 2020-11-11 05:18 | NUR ---
SHIFT SUMMARY PT HAS SLEPT OFF AND ON T/O THE SHIFT, PT REALLY DROWSY AT THE START OF THE SHIFT, BUT BEGAN TO WAKE UP MORE THE NIGHT PROGRESSED. PT ATTEMPTS TO SWING LEGS OFF THE SIDE OF THE BED, HE ATTEMPTS TO GET OOB WITHOUT ASSISTANCE. PT REMAINS HIGH FALL RISK REQUIRING 1-2 ASSIST WITH AMBULATION. HOWEVER, PT HAS BECOME MUCH MORE DIRECTABLE THE NIGHT HAS PROGRESSED, HE IS NOT ATTEMPTING TO GET OOB OFTEN WITHOUT ASSISTANCE, AND HE HAS NOT BEEN COMBATIVE TOWARDS STAFF. CONFUSED, BUT OVERALL PLESANT. PATRICIA VEST HAS BEEN REMOVED THIS SHIFT. SAFETY MEASURES ARE IN PLACE TO PREVENT FALLS. PT ON CAMERA, AND BED ALARM REMAINS IN PLACE. PT HAS DIVERSIONAL ACTIVITIES AND IS CALM AND COOPERATIVE AT THIS TIME. CHEM CHECKS CONTINUED Q4HRS, PT BG 400 AT ONE POINT IN THE SHIFT REQURING 15 UNITS OF INSULIN. LAST BG CHECK AROUND 4 HOUR TAVO WITH LAB DRAW UNDER 350. CONDOM CATH IN PLACE, DRAINING WITH ADEQUATE OUTPUT. VITALS ARE STABLE. PLAN IS FOR DC NEXT WEEK, BED IN LOWEST POSITION, CALL LIGHT WITHIN REACH.
[2020-11-11 05:29] LABS: Bun/Creatinine Ratio 31.3 (12.0-20.0); Calcium, Blood 8.9 mg/dL (8.5-10.1); Creatinine, Blood 1.63 mg/dL (0.60-1.20); Potassium, Blood 3.4 mmol/L (3.5-5.5)
--- NOTE | 2020-11-11 18:23 | NUR ---
PT PLEASANT FOR THE MOST PART TODAY. STATES "FELT IF I HELPED HIM TODAY". BLOOD SUGARS STABLE TODAY,ALTHOUGH SOMEWHAT HIGH. CARE PLANNING STATES EXPECTING D/CHG SATURDAY. NO NEW CONCERNS NOTED TODAY. BED IN LOW POSITION, CALL LITE IN REACH, BED ALARM ON FOR SAFETY
--- NOTE | 2020-11-12 05:13 | NUR ---
CBG 430; DR ZARATE NOTIFIED WITH ORDERS TO GIVE HUMALOG 15 UNITS NOW AND RECHECK CBG IN 2 HOURS.
--- NOTE | 2020-11-12 05:20 | NUR ---
CBG 430; DR ZARATE NOTIFIED WITH ORDERS TO GIVE REGULAR INSULIN 15 UNITS PER HIGH SLIDING SCALE AND RECHECK IN 2 HOURS.
--- NOTE | 2020-11-12 05:42 | NUR ---
SHIFT SUMMARY: 64 Y/O SLENDER MALE RESTED COMFORTABLY ALL SHIFT WITH NO MENTAL ISSUES OR INAPPROPRIATE BEHAVIORS NOTED; PTS CBG CHECKED Q4H WITH 0400 CBG 430; DR ZARATE NOTIFIED WITH REGULAR INSULIN 15 UNITS, SQ GIVEN; JACOME CATHETER DRAINING CLEAR YELLOW FLUID; ALERT AND ORIENTED X 1; BED ALARM APPLIED, BED ALARM INTACT WITH CALL LIGHT AT SIDE.
[2020-11-12 17:17] LABS: PCO2 Arterial 46.1 mmHg (35-45); PO2 Arterial 113 mmHg (80-100); pH Blood Arterial 7.42 (7.35-7.45)
--- NOTE | 2020-11-12 17:30 | NUR ---
Arrived to Pt's room with DESIGN ENGINEER underway. Pt's oxygen demands increased and is currently on 15 L O2 via non rebreather. Spoke with Dr Ward, water purification chemist Angela, and discussed case. Plan is to transfer Pt to PCU. Called and spoke with Pt's Aarti and provided update including plan for PCU. Offered therapeutic listening and answered questions. Aarti expresses appreciation of call. Palliative Care will remain available.
--- NOTE | 2020-11-12 19:09 | NUR ---
1400: Samuel RAZA, RT, NOTIFIED THIS AUTHOR THAT PT'S O2 SAT WAS 80% ON RA. SHE HAD GONE IN TO SPOT CHECK PT'S O2 SAT AND REMOVE CONTINUOUS OXIMETRY DEVICE PT WAS NOT USING. PT PLACED ON 4 L/MIN NC AND CONTINUOUS OXIMETRY WITH O2 SAT 88-92%. ~1515: PT HEARD TO BE COUGHING AND HAD GURGLING, WET VOICE. UNABLE TO EXPECTORATE COMPLETELY, WEAK COUGH. ELEVATED HOB TO 90 DEGREES AMD ORALLY SUCTIONED BUT COULD NOT GET MUCH MUCOUS. HAD TO INCREASE OXYGEN TO 6 L/MIN NC (HUMIDIFIED) TO KEEP O2 SAT > 92%. SPOKE TO DR. BURNS BY TELEPHONE TO REPORT THE INCREASE IN OXYGEN NEEDS, POSSIBLE ASPIRATION; RECEIVED ORDERS FOR NPO, CXR, AND IVF.
--- NOTE | 2020-11-12 19:20 | NUR ---
1640: PT C/O CHEST PAIN, UNABLE TO QUANTIFY SEVERITY, NON-RADIATING. CXR HAD BEEN COMPLETED JUST PRIOR. TELEMETRY NOT ORDERED. NO DIAPHORESIS NOTED. BREATHING BECAME SLIGHTLY MORE LABORED AND TACHYPNEIC, O2 SAT DROPPED TO 85% ON 8 L/MIN NC. ATTEMPTED TO CALL DR. BURNS TWICE BUT WAS UNABLE TO REACH HIM. WAS GOING TO CHANGE TO OXYMIZER, BUT CALLED AUDIOPROSTHOLOGIST INSTEAD D/T CHEST PAIN. AUDIOPROSTHOLOGIST CALLED AT 1655. PT PLACED ON NRB AT 15 L/MIN. EKG AND BLOOD GAS DONE. DR. BURNS TO BEDSIDE AT ~ 1720, OK'D FOR RT TO NT SUCTION PATIENT. NT SUCTIONING SUCCESSFUL, PINK LIQUID (STRAWBERRY ENSURE?) SUCTIONED FROM BACK OF PT'S THROAT. O2 SAT RECOVERED TO 99% ON NRB. OXYGEN TITRATED DOWN TO 10 L/MIN. RECEIVED ORDER TO TRANSFER PT TO PCU. PALLIATIVE CARE RN Hanna RILEY NOTIFIED FAMILY OF TRANSFER. NEW IV PLACED IN R HAND. TRANSFERRED TO PCU AT 1830. REPORT GIVEN TO ASHLEE Bethea RN.
[2020-11-13 00:10] LABS: Glucose, Blood 104 mg/dL (70-99)
[2020-11-13 00:15] LABS: Anion Gap Unable to Calculate mmol/L (6-16); Bun/Creatinine Ratio Unable to Calculate (12.0-20.0); Glomerular Filtration Rate Unable to Calculate (60-)
[2020-11-13 00:34] LABS: Anion Gap 3 mmol/L (6-16); Blood Urea Nitrogen 51 mg/dL (8-24); Bun/Creatinine Ratio 31.9 (12.0-20.0); CO2, Blood 32 mmol/L (21-32); Calcium, Blood 9.6 mg/dL (8.5-10.1); Chloride, Blood 120 mmol/L (98-108); Glomerular Filtration Rate 46 (60-); Potassium, Blood 3.3 mmol/L (3.5-5.5); Sodium, Blood 155 mmol/L (136-145)
--- NOTE | 2020-11-13 04:28 | NUR ---
PROGRESS NOTE PT SATS 98% ON HUMDIIFED HF NC AT 10 L AT THIS TIME. OCCASIONAL COUGH.
[2020-11-13 04:38] LABS: BASOPHILS ABSOLUTE AUTO 0.08 K/mm3 (0.00-0.23); BASOPHILS PERCENT AUTO 1 % (0-2); EOSINOPHILS ABSOLUTE AUTO 0.08 K/mm3 (0.00-0.68); EOSINOPHILS PERCENT AUTO 1 % (0-6); Hematocrit 28.1 % (37.0-53.0); Hemoglobin 8.4 g/dL (13.5-17.5); IMMATURE GRAN ABSOLUTE AUTO 0.09 K/mm3 (0.00-0.10); IMMATURE GRAN PERCENT AUTO 1 % (0-1); LYMPHOCYTES ABSOLUTE AUTO 1.32 K/mm3 (0.84-5.20); LYMPHOCYTES PERCENT AUTO 9 % (21-46); MONOCYTES ABSOLUTE AUTO 0.52 K/mm3 (0.16-1.47); MONOCYTES PERCENT AUTO 3 % (4-13); Mean Corpuscular HGB 27.9 pg (26.0-34.0); Mean Corpuscular HGB Conc 29.9 g/dL (31.5-36.5); Mean Corpuscular Volume 93 fL (80-100); Mean Platelet Volume 12.3 fL (9.1-12.4); NEUTROPHILS ABSOLUTE AUTO 13.24 K/mm3 (1.96-9.15); NEUTROPHILS PERCENT AUTO 86 % (41-73); Platelet Count 429 K/mm3 (150-400); RDW Standard Deviation 54.5 fL (35.1-46.3); Red Blood Cell Count 3.01 M/mm3 (4.30-5.90); White Blood Cell Count 15.33 K/mm3 (4.00-11.30)
[2020-11-13 05:21] LABS: Bun/Creatinine Ratio 31.4 (12.0-20.0); Calcium, Blood 9.1 mg/dL (8.5-10.1); Creatinine, Blood 1.56 mg/dL (0.60-1.20); Potassium, Blood 3.1 mmol/L (3.5-5.5)
--- NOTE | 2020-11-13 07:50 | NUR ---
SHIFT SUMMARY PT ALERT AND ANSWERING QUESTIONS APPROPRIATELY AT START OF SHIFT, NPO, PO MEDS HELD. PT'S ATTENDS CLEANED, PRESSURE WOUND DRESSED WITH BARRIER CREAM AND MEPILEX AT START OF SHIFT. THIS RN PERFORMED X2 ORAL CARE AND, ASSISTED IN TURNING PT FROM BACK, TO L SIDE, TO R SIDE T/O SHIFT. CONDOM CATH JACOME IN PLACE DRAINING YELLOW URINE. REPOSITIONED JACOME IN NIGHT WITH TURNS. PT HAD SEVERAL EPISODES OF AGITATION, NO PRN MEDS NEEDED, PT EASILY REDIRECTABLE AND CALMED. 70'S-80'S SINUS RHYTHM. PT CBG TRENDED LOW WHILE ON D5W 1/2 NS DRIP AT 75 MLS HR, ORDER WAS PLACED FOR D10 DRIP TO SUBSTITUTE, PT BECAME MORE SOMNOLENT AND SATS DROPPED ON AIRVO, PT NEEDED D50 AMP DUE TO CRITICAL LOW CBG, DRIP INCREASED TO 125 MLS/HR FROM INITIAL RATE OF 75 MLS/HR DUE TO PT CBG TRENDING DOWN. GLUCOSE MAINTAINED FOLLOWING CONTINUED RATE OF 125 MLS/HR. PT PLACED ON BIPAP DURING EPISODE OF LOW CBG WHEN SATS TRENDED LOW AND DID NOT RECOVER QUICKLY, DEEP SUCTIONING BY RT PRODUCED THICK, WHITE-YELLOWISH SPUTUM. PT STATED SOME RELIEF FOLLOWING. PT TRIALED ON ROOM AIR DUE TO SATS 99%, SATS FELL AFTER A PERIOD AND PT PLACED ON HIGH FLOW NC AT 10 L. SATS STABILIZED, PT COUGHED FREQUENTLY THROUGH THE MORNING PRODUCING MORE WHITISH SPUTUM, SATS MAINTAINED. THIS RN SUCTIONED PT'S MOUTH SEVERAL TIMES, OBTAINING WHITE SPUTUM. PT C/O SOME NAUSEA, CBG CHECKED AND FOUND TO BE WNL. ADMINISTERED ZOFRAN IV PER ORDERS, NO EPISODES OF EMESIS, PT REPOSITIONED FOR COMFORT. PT HAS REQUESTED IN THE NIGHT THAT LIGHTS REMAIN ON AT ALL TIMES, PREFERS SPOTLIGHT TO ALSO BE ON.
--- NOTE | 2020-11-13 08:38 | NUR ---
Case Conference Note Spoke with Pt's Primary RN Raisa and discussed case. Pt's respiratory status stabalized short term when transfered to PCU yesterday evening. Pt is now requiring more oxygen support and is unable to clear his own secretions. Spoke with Dr Ward and discussed case. Spouse would benefit from discussion regarding goals of care. Called and spoke with Pt's Aarti. Provided update and discussed Pt's clinical picture. Engaged in therapeutic discussion regarding code status and comfort care. Aarti states she is financialy dependent of Pt and if he passes she would only get $1000 for survivor benefits. She states if she was not financialy dependent on him she would do "the yazidi thing" and allow him to pass away comfortably. She states "I have to keep him alive or I will be living on poverty wages". Aarti expresses appreciation of call and states she will be at [facility] and unavailable until 2:[address] Ward and Primary CAMRON Kline agree that Ethics Consult should be placed. Placed Ethics Consult due to spouse making decisions that may not be in Pt's best interest. Palliative Care will remain available.
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
--- NOTE | 2020-11-13 17:28 | NUR ---
SHIFT NOTE PT CURRENTLY ON 6L O2 VIA NASAL CANNULA. ET SUCTION PERFORMED X2 T/O THE DAY. PT BEGS STAFF "PLEASE DON'T DO THAT AGAIN" WHEN SUCTIONED THE LAST TIME. NT SUCTIONING HAS BEEN KEPT TO MUCH OF A MINIMUM POSSIBLE TO HELP COMPLY WITH PT'S WISHES AND CONTINUE TO KEEP AIRWAY CLEAR OF MUCUS. PT HAS SLEPT MOST OF THE DAY, Q2 HOUR TURNS PERFORMED, Q2 HOUR GLUCOSE CHECKS PERFORMED WELL. D10 WAS D/C IN PLACE OF CLINIMINX. INSULIN HAS BEEN HELD T/O THE DAY COVERAGE HAS MATT BEEN INDICATED. PLEASE SEE PREVIOUS NOTES WELL. VSS. NADN.
--- NOTE | 2020-11-13 20:49 | NUR ---
CARE ASSUMPTION UPON CARE ASSUMPTION, PT ALERT, ASKING FOR SOUP. ABLE TO STATE NAME AND , BUT WHEN ASKED WHERE HE IS, PT STATES, "AT HOME". SP02>90% ON BIPAP. TELEMETRY READS SR, HR 70'S. CLINIMIX INFUSING PER EMAR. CALL LIGHT IN REACH.
--- NOTE | 2020-11-13 23:26 | NUR ---
PT UPDATE PT FIDGITING WITH CORDS, LINES, TUBES. FOUND HOLDING THE BAG OF HIS CONDOM CATHETER. REMOVED OXIMETRY MULTIPLE TIMES. "BUSY APRON" PUT ON PT. PT CURRENTLY USING APRON.
--- NOTE | 2020-11-14 02:40 | NUR ---
CALLED THIS RIVET CATCHER CALLED TO ROOM R/T DESATURATION WITH INCREASING FIO2 REQUIREMENTS. PT IS UNCOOPERATIVE WITH CARE AND YELLS "I HATE YOU, I HATE YOU" WHEN SUCTION IS ATTEMPTED. RT MADONNA AT THE BEDSIDE TO EVALUATE AND PT FLUCTUATES BETWEEN 82% TO 91% ON AIRVO TO NOSTRILS WITH HIGH FLOW NC TO MOUTH. CALLED DR. ZARATE TO NOTIFY OF RESPIRATORY CONCERNS. PLAN TO TRANSFER TO ICU.
[2020-11-14 03:16] LABS: PCO2 Arterial 38.5 mmHg (35-45); PO2 Arterial 47.7 mmHg (80-100); pH Blood Arterial 7.48 (7.35-7.45)
--- NOTE | 2020-11-14 03:34 | NUR ---
PERSONAL BELONGINGS CALLED SECURITY AT THE REQUEST OF NURSING WAREHOUSE SHIPPING CLERK TO PLACE PERSONAL BELONGINGS IN STORAGE AREA OF PARKING GARAGE. PT HAS MULTIPLE LARGE TOTE CONTAINERS AND A PERSONAL WHEELCHAIR THAT WILL BE STORED.
[2020-11-14 03:47] LABS: Hematocrit 31.2 % (37.0-53.0); Hemoglobin 9.4 g/dL (13.5-17.5); Mean Corpuscular HGB 28.2 pg (26.0-34.0); Mean Corpuscular HGB Conc 30.1 g/dL (31.5-36.5); Mean Corpuscular Volume 94 fL (80-100); Mean Platelet Volume 12.4 fL (9.1-12.4); Platelet Count 471 K/mm3 (150-400); RDW Coefficient Variation 15.5 % (11.7-14.2); RDW Standard Deviation 53.1 fL (35.1-46.3); Red Blood Cell Count 3.33 M/mm3 (4.30-5.90); White Blood Cell Count 14.25 K/mm3 (4.00-11.30)
[2020-11-14 04:07] LABS: Albumin, Blood 2.4 g/dL (3.4-5.0); Anion Gap 7 mmol/L (6-16); Blood Urea Nitrogen 43 mg/dL (8-24); Bun/Creatinine Ratio 31.9 (12.0-20.0); CO2, Blood 27 mmol/L (21-32); Chloride, Blood 113 mmol/L (98-108); Creatinine, Blood 1.35 mg/dL (0.60-1.20); Glomerular Filtration Rate 56 (60-); Glucose, Blood 384 mg/dL (70-99); Phosphorus, Blood 2.9 mg/dL (2.5-4.9); Potassium, Blood 3.8 mmol/L (3.5-5.5); Sodium, Blood 147 mmol/L (136-145)
--- NOTE | 2020-11-14 04:43 | NUR ---
PT UPDATE SHORTLY AFTER CARE ASSUMPTION, PT BEGAN TO DESAT. PT ON HI SLIM NC, SATS 84-89%. MOUTH SUCTION PERFORMED, RT IN ROOM. ATTEMPTED TO NASAL SUCTION WITHOUT SUCCESS. PT PLACED ON AIRVO 100% WELL HI SLIM NC AT 15L IN MOUTH. PT CONTINUES SATTING HIGH 80'S. PT PLACED ON BIPAP AND BEGAIN DESATTING FURTHER TO THE 60'S. STAFF IN ROOM, CALLED PLACED TO MD ZARATE. MD ZARATE WITH ORDERS FOR TRANSFER TO ICU.
[2020-11-14 05:38] LABS: Source, Urine Catheter
[2020-11-14 05:47] LABS: PCO2 Arterial 42.4 mmHg (35-45); PO2 Arterial 156 mmHg (80-100); pH Blood Arterial 7.35 (7.35-7.45)
--- NOTE | 2020-11-14 06:30 | NUR ---
SUMMARY 0330 PATIENT ARRIVED TO ICU 8 FROM PCU 1 INTUBATED WITH RT BAGGING, AND NS IV BOLUS INFUSING PATIENT TRANSFERRED TO ICU BED USING SLIDER SHEET AND PLACED ON ICU MONITORS AND PLACED TO VENT SET AT AC 14, TV 500, PEEP 8, FIO2 65%. OG PLACED AND SET TO LIS SUCTIONING THIN CLEAR LIQUID. CONDOM CATH REMOVED AND JACOME WITH TEMP PROBE PLACED, UA SENT PER PROTOCOL, URETHRA RED AND EXCORIATED. SCROTUM ALSO EXCORIATED. DRESSING TO COCCYX CD&I. PROPOFOL STARTED AND TITRATED DUE TO PATIENT WAKING UP AND COUGHING ON ETT, AND PULLING AT RESTRAINTS. PROPOFOL NOW AT 45 MCG. PATIENT RECEIVED TOTAL OF 2L NS BOLUS FOR HYPOTENSION, LEVOPHED ORDERED IF NEEDED. CLINIMIX RESTARTED AT 75 CC/HR AFTER 2ND BOLUS COMPLETE.
[2020-11-14 07:07] LABS: Bilirubin, Urine Neg (Neg); Blood, Urine 1+ (Neg); Glucose Qualitative, Urine 4+ (Neg); Ketones, Urine Neg (Neg); Leukocyte Esterase, Urine Neg (Neg); Nitrite, Urine Neg (Neg); Protein, Urine 2+ (Neg); Urobilinogen, Urine NORM (Normal)
[2020-11-14 07:25] LABS: Appearance, Urine Clear (Clear); Color, Urine Yellow (P-Yellow)
[2020-11-14 07:28] LABS: Transitional Epithelial Cells Rare /hpf (0-Rare)
[2020-11-14 07:31] LABS: Red Blood Cells, Urine 0-2 /hpf (0-2); Squamous Epithelial Cells Not Seen /hpf (Few)
[2020-11-14 07:32] LABS: Bacteria Few /hpf; Hyaline Casts Rare /lpf (0-2)
--- NOTE | 2020-11-14 10:15 | NUR ---
Care Assumed 0700 Pt intubated and sedated. Propofol at 40-50 mcg/kg/min. Pt able to follow directions, squeezing hands, weak analysis analyst. Levophed started, see flow sheet, and shortly placed on SB due to pt being hypertensive when awake (eyes open), see vital sign flow sheet. Levophed remains on SB. Vent settings AC 14/500/5/50%, FIO2 decreased to 40% by RT. SPO2 > 90%. Thick white secreations from ETT. Temp vu in place with clear/yellow urine) 97.6 temp. OG tube in place, to LIS. VSS. NSR.
--- NOTE | 2020-11-14 11:43 | NUR ---
[facility] Phone call recieved from [facility]. Spoke to Reese and updated on PCU nurse note and fax. Reese provided with , Mike, phone number per request.
--- NOTE | 2020-11-14 13:56 | NUR ---
[facility] UPDATE JAYESH-BAG LOADER FOR PT THROUGH THE [place] CALED FOR AN UPDATE. STATED PT'S CALLED THE [facility] TO TRY AND GET IN TOUCH WITH THE CIVIL ENGINEER D/T CONCERNS ABOUT PLACEMENT IF THE PT PROGRESSES TO A TRACH. JAYESH REPORTS THE STATES "I CAN'T FINANCIALLY AFFORD TO LET HIM ." JAYESH REMAINS AVAILABLE TO PROVIDE ASSISTANCE WHEN READY AT [phone] EXT [phone].
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
--- NOTE | 2020-11-14 14:58 | NUR ---
Spoke to daughter, Shanda Daughter states she lives in [place] and brother lives in [place]. Daughter updated on patient being intubated last night and current care being proivded. All questions answered.
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
--- NOTE | 2020-11-14 18:34 | NUR ---
Shift Summary Pt remains intubated and sedated. Propofol 35 mcg/kg/min. Levophed at 0.5 mcg/min, to keep MAP > 65. Vent settings AC 14/500/5/30%, SPO2 > 90%. Pt opens eyes and tracking. Follows directions occasionally and mouthing words at times. Pivot 1.5 at 20 ml/hr, will increase to goal of 30 ml/hr per advancement protocol. Temp vu in place, draning to gravity. SWB in place. Sww previous note in regards to family phone calls. NSR. Will report to oncoming shift.
--- NOTE | 2020-11-14 22:50 | NUR ---
PATIENT INTUBATED AND SEDATED WITH PROPOFOL AT 35 MCG. OPENS EYES TO STIMULI, NOT FOLLOWING DIRECTIONS. VENT SET AT AC 14, TV 500, PEEP 5, FIO2 30% SUCTIONING THICK YELLOW SPUTUM VIA ETT. OG IN PLACE WITH TUBE FEEDING PIVIT 1.5 NOW AT GOAL RATE OF 30 CC/HR. PATIENT INCONT OF LOOSE BROWN STOOL. PERIAREA CONTINUES TO BE EXCORIATED.
--- NOTE | 2020-11-15 02:42 | NUR ---
AT 2354 GLUCOSE 22, D50 GIVEN PER HYPOGLYCEMIA PROTOCOL AND DOCTOR KELLEN NOTIFIED. PATIENT HAD RECEIVED TOTAL OF 25 UNITS OF LONG ACTING INSULIN DURING THE DAY. ORDER OBTAINED FOR D5W AT 75/HR AND PLAN TO CHECK GLUCOSE Q1HR UNTIL STABLE. LEVOPHED WAS RESTARTED FOR HYPOTENSION SEE FLOW SHEET
[2020-11-15 04:36] LABS: BASOPHILS ABSOLUTE AUTO 0.15 K/mm3 (0.00-0.23); BASOPHILS PERCENT AUTO 1 % (0-2); EOSINOPHILS ABSOLUTE AUTO 0.32 K/mm3 (0.00-0.68); EOSINOPHILS PERCENT AUTO 2 % (0-6); Hematocrit 26.6 % (37.0-53.0); Hemoglobin 8.1 g/dL (13.5-17.5); IMMATURE GRAN ABSOLUTE AUTO 0.07 K/mm3 (0.00-0.10); IMMATURE GRAN PERCENT AUTO 0 % (0-1); LYMPHOCYTES ABSOLUTE AUTO 1.29 K/mm3 (0.84-5.20); LYMPHOCYTES PERCENT AUTO 8 % (21-46); MONOCYTES ABSOLUTE AUTO 0.48 K/mm3 (0.16-1.47); MONOCYTES PERCENT AUTO 3 % (4-13); Mean Corpuscular HGB 28.1 pg (26.0-34.0); Mean Corpuscular HGB Conc 30.5 g/dL (31.5-36.5); Mean Corpuscular Volume 92 fL (80-100); Mean Platelet Volume 12.5 fL (9.1-12.4); NEUTROPHILS ABSOLUTE AUTO 13.77 K/mm3 (1.96-9.15); NEUTROPHILS PERCENT AUTO 86 % (41-73); Platelet Count 367 K/mm3 (150-400); RDW Coefficient Variation 15.9 % (11.7-14.2); RDW Standard Deviation 53.4 fL (35.1-46.3); Red Blood Cell Count 2.88 M/mm3 (4.30-5.90); White Blood Cell Count 16.08 K/mm3 (4.00-11.30)
[2020-11-15 04:58] LABS: Anion Gap 6 mmol/L (6-16); Blood Urea Nitrogen 50 mg/dL (8-24); Bun/Creatinine Ratio 30.3 (12.0-20.0); CO2, Blood 28 mmol/L (21-32); Calcium, Blood 8.4 mg/dL (8.5-10.1); Chloride, Blood 116 mmol/L (98-108); Creatinine, Blood 1.65 mg/dL (0.60-1.20); Glomerular Filtration Rate 44 (60-); Glucose, Blood 209 mg/dL (70-99); Magnesium, Blood 2.1 mg/dL (1.6-2.4); Phosphorus, Blood 3.6 mg/dL (2.5-4.9); Potassium, Blood 3.2 mmol/L (3.5-5.5); Sodium, Blood 150 mmol/L (136-145); Vancomycin, Trough 9.8 ug/mL (5.0-10.0)
--- NOTE | 2020-11-15 06:32 | NUR ---
SUMMARY PATIENT REMAINS INTUBATED AND SEDATED WITH PROPOFOL AT 35 MCG. VENT REMAINS UNCHANGED AT AC 14, TV 500, PEEP 5, FIO2 30% SUCTIONING THICK YELLOW SPUTUM VIA ETT. OG REMAINS IN PLACE WITH PIVIT 1.5 AT GOAL RATE OF 30 CC/HR. PATIENT HAD HYPOGLYCEMIA DURING THE NIGHT WITH GLUCOSE DOWN TO 22, D5W AT 75 CC/HR INFUSING AND GLUCOSE NO LONGER LOW. THIS AM INSULIN HELD. LEVOPHED RESTARTED AND TITRATED NOW AT 2 MCG, SEE FLOW SHEET.
--- NOTE | 2020-11-15 08:16 | NUR ---
Care Assumed 0700 Pt intubated and sedated. Propofol GTT 35 mcg/kg/min and Levophed placed on SB. D5W at rate of 75 ml/hr. Pt responds to noxious stimuli, grimace during oral care. Moves all extrems. TF at goal, residual of 50. Vent settings: AC 14/500/5/30%, tolerating well, moderate thick yellow secreations, SPO2 > 90%. vss. nsr.
--- NOTE | 2020-11-15 11:15 | NUR ---
Provider Visit -PS Vent settings changed to PS 5/5, FIO2 30%. Pt tolerating well. Attempting to open eyes but not following commands. Dr. Chavira would like to extubate today if patient tolerates PS well. Pts SBP 170's, will treat if increases furthur.
--- NOTE | 2020-11-15 15:09 | NUR ---
Extubated 1436 Patient extubated successfully. Tolerated well on 2 L via NC, SPO2 > 90%. As soon as patient extubated, pt states, "No more tube" X 3. And contines to state, "I just want to ." Dr. Chavira called , Aarti, and updated on patient being extubated. VSS. NSR.
--- NOTE | 2020-11-15 17:04 | NUR ---
Update- Pt refusing care/family called. Patient yelling, attempting to punch, and not cooperative with care. States, "I do not want to be touched." IV removed per patient request and asked patient if an NG tube or Dobhoff can be placed for medication/food. Patient yells, "NO TUBES" and starts being verbally abusive. Dr. Chavira at bedside and would like patient to rest for now. Patients states, "I just want to sleep." Patient also speaking/yelling with fist in the air when no one is in the room. When asked who he is speaking to patients states, "the other person in the room." Has only had one visual/auditory hallucination thus far. Will continue to monitor. Patients SWB removed after extubation. Has not pulled on IV's thus far. Spoke to daughter, Shanda, and daughter states she will be visiting tomorrow. Updated , Aarti, on patient being extubated and currently refusing care.
--- NOTE | 2020-11-15 17:12 | NUR ---
Ethics consult order received and processed. Concerns have been expressed that the principals spouse may not be acting with fidelity in her role as the court appointed fiduciary on behalf of the principal. According to various well documented sources in the EHR, the principals guardian has been witnessed explicitly indicating that the treatment decisions that she makes for the protected person are motivated not by benevolence or predicated on a best interest standard, but rather are driven by economic factors. I have reviewed the medical case notes and facilitated conversations with [employer] stakeholders to confirm these attestations. I also verified that the limited judgement issued by the local tribuna for conservatorship / guardianship is of legitimate character and therefore binding in nature. In light of the facts in discovery, assuming the healthcare apprenticeship representative cannot be persuaded otherwise, I would propose the following option: If the provider managing the case determines at any point, that he or she is being compelled for malevolent reasons to exceed the medical standard of care and render non-beneficial or disproportionate therapy, the fiduciary agent can be respectfully informed that such a recourse is ethically and clinically inappropriate, and that we are neither willing, nor obligated to participate in such care. If this path is chosen, the hospital, in accordance with ORS 127.550 subsection (c), will need to formally petition the court for a judicial review, to determine whether the acts of the guardian constitute a breach of duty. If this is the preferred route please contact the hospital ethicist at [phone]. Thank you for this consult. Hardeep Childers Th.D.
--- NOTE | 2020-11-15 18:00 | NUR ---
Shift Summary Pt successfully extubated. Unable to state location, event, date/year. Was following directions initially after extubation but became agitated when care being provided. Otherwise, patient sleeping. On 2 L via NC, SPO2 > 90%. Moist cough continues but pt refusing suctioning/oral care. Pt refusing to have CBG checked, yells "Let me sleep." Remains on D5W at 75 ml/hr. Bowers in place, with 900 ml of yellow/cloudy urine output. Family called and updated, see note. VSS. NSR. Will continue to monitor.
--- NOTE | 2020-11-15 21:04 | NUR ---
PATIENT AWAKE, MOIST COUGH PATIENT REFUSING TO SPIT OR BE SUCTIONED. SPEECH MOIST SOUNDING. BIOX 95% ON 2L/NC. PATIENT CONFUSED REMEMBERING HE IS IN [place], BUT THINKING HE IS OUTSIDE AND THAT IT IS FEBRUARY. NEEDING FREQUENT REMINDERS TO NOT PULL OFF BIOX AND BLOOD PRESSURE CUFF. PATIENT C/O NAUSEA DOCTOR KELLEN NOTIFIED AND ZOFRAN ORDER OBTAINED, PATIENT IS TO BE STRICT NPO DUE TO FREQUENT ASPIRATION.
--- NOTE | 2020-11-15 22:07 | NUR ---
PATIENT FOLLOWING DIRECTIONS WELL FOR ORAL CARE, PATIENT ABLE TO COUGH UP A LARGE THICK YELLOW SPUTUM WHICH HE SPIT OUT ONTO THE FLOOR.
--- NOTE | 2020-11-16 04:06 | NUR ---
AT APROX OO30 HAVING DIFFICULTY MAINTAINING BIOX >90% PATIENT AWAKE WITH MOIST COUGH, UNABLE TO PRODUCE SPUTUM AND REFUSING DEEP ORAL SUCTION, ABLE TO TALK PATIENT INTO USING ORAL SUCTION TOOTHBRUSH AND PATIENT ABLE TO USE THE SUCTION SWAB TO MOISTEN TONGUE, BUT CONTINUES TO HAVE WET COUGH AND DESATING. AT TIMES BIOX DOWN TO 70'S. DOCTOR FOREMAN CALLED AT 0045 AND ORDER OBTAINED FOR PRECEDEX AND TO GIVE ZYPREXA. 0100 BILAT WRIST RESTRAINTS PLACED, NASAL TRUMPET PLACED TO LEFT NARE AND NT SUCTIONING WITH SCANT AMT OF THIN WHITE SECRETIONS, MOIST COUGH CONTINUES AND BIOX CONTINUES TO BE IN THE LOW 80'S. DOCTOR FOREMAN ARRIVED TO ROOM, MAKING DECISION TO INTUBATE NOW. PATIENT PREMEDICATED WITH 0110 VERSED 2MG, 0112 ROCURONIUM 20 MG, 0113 PROPOFOL 60 MG, BP LOW NS IV BOLUS STARTED AND LEVOPHED ORDERED FROM PHARMACY. 0117 PATIENT INTUBATED WITH 8.0 TUBE AT 24 AT THE TEETH. AT 0400 ETT ADJUSTED BY RT TO 27 AT THE TEETH. PLAN TO USE PRECEDEX FOR SEDATION, PROPOFOL ORDERED IF PRECEDEX NOT EFFECTIVE. PATIENT OPENS EYES TO STIMULI, AND REACHES OUT TO STAFF AND FLIPPING MIDDLE STAFF OFF WHEN EXPLAINED WHAT HAPPENED. PRECEDEX UP TO 0.7 MCG AFTER BP STABLE. 0156 PATIENTS GLUCOSE DOWN TO 41 1 AMP D50 GIVEN AND DOCTOR FOREMAN NOTIFIED. PLAN TO RESTART TUBE FEEDING PIVIOT 1.5 AT GOAL RATE OF 30 CC/HR LEVOPHED NOW ON STANDBY AND PATIENT RESTING QUIETLY WITH PRECEDEX 0.7. OG IN PLACE WITH TUBE FEEDING AT GOAL RATE OF 30 CC/HR.
[2020-11-16 04:14] LABS: Phosphorus, Blood 2.6 mg/dL (2.5-4.9); Vancomycin, Random 12.3 ug/mL
--- NOTE | 2020-11-16 06:21 | NUR ---
SUMMARY PATIENT IS NOW REINTUBATION AT 0115 WITH VENT SET AT AC 14, TV 500, PEEP 5, FIO2 40% DUE TO PATIENT NOT BEING ABLE TO CLEAR HIS SECRETIONS. SUCTIONING THICK YELLOW SPUTUM VIA ETT AFTER INTUBATION. SEDATED WITH PRECEDEX 0.7, LEVOPHED DRIP FOR APROX 2 HS POST INTUBATION DUE TO HYPOTENSION. OG REPLACED AND TUBE FEEDING WITH PIVOT 1.5 AT RATE OF 30/HR AND D5W CONTINUES DUE TO HYPOGLYCEMIA. PATIENT AWAKENS TO SLIGHT STIMULI, BUT REMAINS CALM. BILAT WRIST RESTRAINTS IN PLACE.
[2020-11-16 06:30] LABS: Anion Gap 5 mmol/L (6-16); Blood Urea Nitrogen 39 mg/dL (8-24); Bun/Creatinine Ratio 26.9 (12.0-20.0); CO2, Blood 27 mmol/L (21-32); Chloride, Blood 116 mmol/L (98-108); Creatinine, Blood 1.45 mg/dL (0.60-1.20); Glomerular Filtration Rate 52 (60-); Glucose, Blood 86 mg/dL (70-99); Potassium, Blood 3.8 mmol/L (3.5-5.5); Sodium, Blood 148 mmol/L (136-145)
--- NOTE | 2020-11-16 07:34 | NUR ---
PATIENTS NOTIFIED OF PATIENTS NEED FOR REINTUBATION DURING THE NIGHT AND ABOUT HIS DIFFICULTY CONTROLLING HIS OWN SECRETIONS. SHE VERBALIZED UNDERSTANDING AND PLANS TO DISCUSS FURTHER PLANS WITH THE DOCTOR TODAY.
--- NOTE | 2020-11-16 08:00 | NUR ---
ASSUMED CARE ASSUMED CARE OF PT AT 0700. REPORT RECEIVED FROM CAMRON URIBE. PT INTUBATED, SEDATED. PT AROUSES TO VERBAL STIMULUS, BECOMES AGITATED, PULLS AGAINST RESTRAINTS AND ATTEMPTS TO MOUTH WORDS AROUND ET TUBE. VENT SETTINGS AC 14, TV 500, PEEP 5, FiO2 35%, SPO2 96%. LUNG SOUNDS CLEAR TO DIMINISHED T/O. OG TUBE IN PLACE WITH PIVOT 1.5 TUBE FEEDS AT 30ML/HR. ABDOMEN SOFT, ROUND, NONDISTENDED. HYPERACTIVE BOWEL TONES T/O. PT HAS JACOME CATH IN PLACE DRAINING YELLOW URINE TO GRAVITY. PICC LINE IN PLACE TO TAMIKO WITH PRECEDEX 0.7 MCG/KG, D5 AT 75ML/HR, NS TKO. AJIT SOFT WRIST RESTRAINTS IN PLACE TO PROTECT LINES/TUBES. WILL CONTINUE TO MONITOR PT.
--- NOTE | 2020-11-16 13:02 | NUR ---
SEXER SEXER, JAYESH, FROM THE [place] CALLED FOR AN UPDATE ON THE PT. HE STATES HE HAS HAD MULTIPLE CONVERSATIONS WITH THIS PT IN THE PAST AND THAT HE WAS ADAMANTLY AGAINST RESUSCITATION EFFORTS. JAYESH'S CONTACT INFORMATION IS: [phone] EXT. [phone]
--- NOTE | 2020-11-16 16:55 | NUR ---
PT'S DAUGHTER, SIRI, AND SON IN [place] AT BEDSIDE FOR VISIT. DR FOREMAN INTO ROOM TO UPDATE THEM ON PT'S CURRENT CONDITION AND PLAN OF CARE.
--- NOTE | 2020-11-16 17:14 | NUR ---
CONTACT INFORMATION: SIRI GLASGOW (DAUGHTER) [phone] (LIVES IN [place]) ISIDRA GLASGOW (SON) [phone] (LIVES IN [place]) АННА JOHNSON (SON IN [facility]) [phone]
--- NOTE | 2020-11-16 17:30 | NUR ---
GLUCOSE GLUCOSE LEVELS TRENDING DOWN - D5 INCREASED FROM 75ML/HR TO 100 ML/HR PER ORDER FROM DR. FOREMAN.
--- NOTE | 2020-11-16 18:54 | NUR ---
SHIFT SUMMARY NO ACUTE EVENTS THIS SHIFT. PT REMAINS INTUBATED AND SEDATED WITH PRECEDEX. VENT SETTINGS AC 14, TV 500, PEEP 5, FIO2 35%. PT FOLLOWS COMMANDS OCCASIONALLY. PT HAS BEEN CALM AND COOPERATIVE WITH CARE THIS SHIFT. BLOOD SUGARS TRENDING DOWN THIS EVENING - D5W INCREASED TO 100ML/HR. PT'S DAUGHTER CAME FOR VISIT TODAY, PLANS TO DISCUSS TREATMENT PLANS/GOALS OF CARE WITH PT'S BRIDGET. HANDOFF REPORT GIVEN TO CAMRON CACERES TO ASSUME CARE OF THIS PT.
--- NOTE | 2020-11-16 19:30 | NUR ---
ASSESSMENT/ASSUMED CARE PT RESTING QUIETLY. FOLLOWS SOME SIMPLE INSTRUCTIONS. BILAT SOFT WRIST RESTRAINTS ON. PT INTUBATED AND ON MECH VENT. VENT SETTINGS AC 14 TV 500 PEEP 5 FIO2 30%. D5 AT 100 ML/HR, PRECEDEX AT 0.7 MCQ/KG/MIN AND NS AT 10 ML/HR. PT WITH EXCORAIATION TO SCROTUM AND BOTTOM. COCCYX DRSG INTACT. REPOSITIONED TO KEEP OFF BOTTOM. BLOOD GLUCOSE 167. TUBE FEED PICOT 1.5 AT GOAL RATE 30 ML/HR. PT AGITIATED WITH ORAL CARE BUT AFTER EXPLAINING TO PT IS FOLLOWING INSTRUCTIONS.
--- NOTE | 2020-11-17 02:00 | NUR ---
SEDATION PT AWAKE AGITATED AND PULLING AGAINST RESTRAINTS. DR FOREMAN AT BEDSIDE. RESTART PROPOFOL AT 20 MCQ/KG/MIN. PT INCONT OF LIQUID STOOL. PATIENCE CARE DONE AND CALZIME CREAM APPLIED .
[2020-11-17 04:22] LABS: BASOPHILS ABSOLUTE AUTO 0.07 K/mm3 (0.00-0.23); BASOPHILS PERCENT AUTO 1 % (0-2); EOSINOPHILS ABSOLUTE AUTO 0.32 K/mm3 (0.00-0.68); EOSINOPHILS PERCENT AUTO 3 % (0-6); Hematocrit 23.7 % (37.0-53.0); Hemoglobin 7.4 g/dL (13.5-17.5); IMMATURE GRAN PERCENT AUTO 1 % (0-1); LYMPHOCYTES ABSOLUTE AUTO 1.47 K/mm3 (0.84-5.20); LYMPHOCYTES PERCENT AUTO 15 % (21-46); MONOCYTES ABSOLUTE AUTO 0.42 K/mm3 (0.16-1.47); MONOCYTES PERCENT AUTO 4 % (4-13); Mean Corpuscular HGB 28.4 pg (26.0-34.0); Mean Corpuscular HGB Conc 31.2 g/dL (31.5-36.5); Mean Corpuscular Volume 91 fL (80-100); NEUTROPHILS ABSOLUTE AUTO 7.23 K/mm3 (1.96-9.15); NEUTROPHILS PERCENT AUTO 75 % (41-73); Platelet Count 307 K/mm3 (150-400); RDW Coefficient Variation 15.9 % (11.7-14.2); RDW Standard Deviation 51.4 fL (35.1-46.3); Red Blood Cell Count 2.61 M/mm3 (4.30-5.90); White Blood Cell Count 9.61 K/mm3 (4.00-11.30)
[2020-11-17 04:23] LABS: Mean Platelet Volume 13.4 fL (9.1-12.4)
[2020-11-17 04:35] LABS: Bun/Creatinine Ratio 27.1 (12.0-20.0); Creatinine, Blood 1.29 mg/dL (0.60-1.20); Potassium, Blood 3.1 mmol/L (3.5-5.5)
--- NOTE | 2020-11-17 06:08 | NUR ---
SHIFT SUMMARY PT REMAINS INTUBATED AND [facility]. NO CHANGES TO VENT SETTINGS. INCREASE IN SEDATION DURING THE NIGHT BY STARTING PROPOFOL AT 20 MCQ/KG/MIN DOWN TO 15 MCQ/KG/MIN AND TITRATING PRECEDEX UP TO 0.7 MCQ/KG/HR THAN BACK DOWN TO 0.3 MCQ/KG/HR. PT CONT ON SOFT RESTRAINTS TO BILAT WRISTS. KCL 20 MEQ GIVEN VIA OG TUBE FOR POTASSIUM OF 3.1. PT INCONT OF LIQUID STOOL TWICE DURING THE NIGHT. PT MED WITH LABETALOL FOR HTN WITH LITTLE RESULTS. PT TURNED Q2HR SIDE TO SIDE TO KEEP OFF COCCYX. COCCYX DRSG CHANGED. CALZIME CREAM APPLIED TO PATIENCE AREA DUE TO BREAKDOWN. REPORT TO ON COMING NURSE
--- NOTE | 2020-11-17 07:15 | NUR ---
Assumed care of pt at 0700. Bedside report received from Stormy LYON. Pt opens eyes to verbal stimulus. Batting Machine Operator this RN's hands and opens mouth when instructed to do so. Pt is receiving precedex at 0.3 mcg/kg/hr and propofol at 15 mcg/kg/min to help pt tolerate ventilator. D5W at 100 mL per hour for blood sugar support. Pt has OG tube with feeds and flushes per orders. Residual measurement is not ordered. Hyperactive BT, pt incontinent of brown liquid stool. Bowers catheter draining clear yellow urine. Pt hypothermic. Warm blankets provided and room temperature increased. Ventilator settings ACVC 16/500/5/30%. SpO2 90% or greater. Lungs clear with diminished bases. Thick amount of yellow sputum suctioned from ETT.
--- NOTE | 2020-11-17 09:12 | NUR ---
Ethics consult update: A form was submitted via fax to the [place] requesting a digital copy of the khushboopals advance directive. The document was received and analyzed on 11-17-20. Given that the instrument was executed subsequent to the establishment of the court order for guardianship, it is presumed to be invalid and therefore of no legal bearing. The rationale for this conclusion is that the principal was deemed by tribunal judgement, to be incapacitated prior to signing the advance directive, therefore the advisory guidance that I offered in my previous consult remains unchanged. Hardeep Childers Th.D.
--- NOTE | 2020-11-17 12:45 | NUR ---
Pt opens mouth when instructed to do so, for oral care. Pt then became agitated during oral care, tossing head back and forth and purposefully raising middle finger to this RN. Agitation resolved when oral care was complete. Will continue to reassess sedation needs.
--- NOTE | 2020-11-17 13:34 | NUR ---
Discussed blood sugar with Dr Chavira. D5 stopped. Discussed elevated sodium. Increased OG tube flush to 250 ml water Q4H
--- NOTE | 2020-11-17 14:18 | NUR ---
Ethics update: Consultation with local research attorney facilitated to discuss the possibility of filing a judicial motion for enjoining the removal of the fiduciary agent. While the principals guardian has recently agreed to forgo unreasonable and non-beneficial therapy, if she elects to reconounce her position and insist on resuming an overly-aggressive course of treatment, the hospital is prepared to undertake her dismissal, and pursue the election of an alternate guardian. Please notify the hospital ethicist at [phone] in the event that such an unwanted development transpires. Hardeep Childers Th.D.
--- NOTE | 2020-11-17 14:19 | NUR ---
Spiritual care note: Per family request, I read scripture and audibly prayed for He at bedside. He opens one eye to voice but does not otherwise respond. He is ventilated and appeared to be sleeping for the most part. He seems well cared-for by nursing and quite comfortable. [facility] services will remain available.
--- NOTE | 2020-11-17 18:43 | NUR ---
SUMMARY No acute changes t/o shift. Pt remains on same levels of sedation, 15 mcg/kg/min propofol and 0.3 mcg/kg/hr precedex. Pt interactive with family while they were in room this afternoon. OG flushes increased to 250 mL water Q4H for hypernatremia. Rectal tube inserted to manage pt's large liquid bowel movements. Ventilator settings ACVC 16/500/5/40%. SpO2 90% or greater. SR per monitor. BP stable. Bed in lowest position. Call light in reach. Pt denies need at this time.
--- NOTE | 2020-11-17 19:00 | NUR ---
ASSUMED CARE ASSUMED CARE OF PATIENT. REMAINS INTUBATED- AC 14, VC 500, PEEP 5, FIO2 40%. SEDATED WITH PROPOFOL AT 15MCG/KG/MIN AND PRECEDEX AT 0.3MCG/KG/HR. PT IS AWAKE AND ALERT. ATTEMPTING TO COMMUNICATE BY MOUTHING WORDS. APPEARS IRRITABLE. FOLLOWS SIMPLE COMMANDS TO SQUEEZE HANDS/BLINK EYES. NODS HEAD YES/NO SEEMINGLY APPROPRIATELY. PULLED OUT OG TUBE- WILL REPLACE. TUBE FEEDING ON HOLD AT THIS TIME. PROPOFOL INCREASED TO 25MCG/KG/MIN FOR PT COMFORT. MONITOR SHOWS NSR, RATE 60. BP STABLE. AFEBRILE. JACOEM PATENT AND DRAINING TO GRAVITY. SEE SHIFT ASSESSMENT FOR FULL ASSESSMENT.
[2020-11-18 04:39] LABS: BASOPHILS ABSOLUTE AUTO 0.05 K/mm3 (0.00-0.23); EOSINOPHILS ABSOLUTE AUTO 0.31 K/mm3 (0.00-0.68); EOSINOPHILS PERCENT AUTO 4 % (0-6); IMMATURE GRAN ABSOLUTE AUTO 0.07 K/mm3 (0.00-0.10); LYMPHOCYTES ABSOLUTE AUTO 1.73 K/mm3 (0.84-5.20); LYMPHOCYTES PERCENT AUTO 21 % (21-46); MONOCYTES ABSOLUTE AUTO 0.42 K/mm3 (0.16-1.47); NEUTROPHILS ABSOLUTE AUTO 5.63 K/mm3 (1.96-9.15)
[2020-11-18 04:59] LABS: Anion Gap 6 mmol/L (6-16); Blood Urea Nitrogen 34 mg/dL (8-24); Bun/Creatinine Ratio 26.6 (12.0-20.0); CO2, Blood 25 mmol/L (21-32); Calcium, Blood 7.6 mg/dL (8.5-10.1); Chloride, Blood 115 mmol/L (98-108); Creatinine, Blood 1.28 mg/dL (0.60-1.20); Glomerular Filtration Rate 60 (60-); Glucose, Blood 120 mg/dL (70-99); Potassium, Blood 3.4 mmol/L (3.5-5.5); Sodium, Blood 146 mmol/L (136-145); Vancomycin, Trough 12.1 ug/mL (5.0-10.0)
[2020-11-18 05:32] LABS: BASOPHILS PERCENT AUTO 1 % (0-2); Hematocrit 21.6 % (37.0-53.0); Hemoglobin 6.7 g/dL (13.5-17.5); IMMATURE GRAN PERCENT AUTO 1 % (0-1); MONOCYTES PERCENT AUTO 5 % (4-13); Mean Corpuscular HGB 28.3 pg (26.0-34.0); Mean Corpuscular Volume 91 fL (80-100); NEUTROPHILS PERCENT AUTO 69 % (41-73); RDW Coefficient Variation 16.1 % (11.7-14.2); RDW Standard Deviation 53.1 fL (35.1-46.3); Red Blood Cell Count 2.37 M/mm3 (4.30-5.90); White Blood Cell Count 7.98 K/mm3 (4.00-11.30)
[2020-11-18 05:43] LABS: Platelet Count 270 K/mm3 (150-400)
[2020-11-18 05:44] LABS: Mean Platelet Volume 13.6 fL (9.1-12.4)
--- NOTE | 2020-11-18 05:46 | NUR ---
HGB DR. FOREMAN NOTIFIED OF HgB 6.7. NO ORDERS TO TRANSFUSE AT THIS TIME. WILL CONTINUE TO FOLLOW.
--- NOTE | 2020-11-18 06:43 | NUR ---
SHIFT SUMMARY NO ACUTE CHANGES DURING NOC. REMAINS INTUBATED- AC 14, VC 500, PEEP 5, FIO2 NOW 30%. SEDATED WITH PROPOFOL AT 25MCG/KG/MIN AND PRECEDEX AT 0.3MCG/KG/HR. PT CONTINUES TO FOLLOW SOME SIMPLE COMMANDS AND OPENS EYES TO VERBAL STIMULI. BILATERAL SOFT WRIST RESTRAINTS IN PLACE TO PREVENT SELF-EXTUBATION. ATTEMPTS TO COMMUNICATE AT TIMES BY POINTING AND MOUTHING WORDS. NODS HEAD YES/NO SEEMINGLY APPROPRIATELY. VSS. MONITOR SHOWS NSR, RATE 60s. AFEBRILE. OG WITH PIVOT 1.5 AT GOAL RATE OF 30CC/HR. 250CC H20 FLUSHES Q4H. JACOME PATENT AND DRAINING TO GRAVITY. SEDIMENT NOTED IN TUBING. WILL REPORT TO ONCOMING RN WHEN AVAILABLE.
--- NOTE | 2020-11-18 07:15 | NUR ---
Assumed care of pt at 0700. Bedside report received from Bianca LYON. Pt receiving 25 mcg/kg/min propofol and 0.3 mcg/kg/hr precedex for ventilator tolerance. ETT is 8.0 cm placed 27 cm ATT. Ventilator settings ACVC 14/500/5/30%. SpO2 98%. Lungs clear t/o, diminished in bases. Small amount of thick, yellow sputum suctioned from ETT. Pt is SB, rate 59. BP stable. OG tube with feeds and flushes per orders. Residual measuring not ordered. BT hyperactive. Rectal tube patent and draining liquid brown stool. Bowers catheter draining clear yellow urine. PICC line present with C/D/I dressing. Bilat wrist restraints to prevent self extubation.
--- NOTE | 2020-11-18 12:36 | NUR ---
PRBCs ordered by ICU resident, Dr Abi Mcclellan. PRBCs tranfusing at this time, pt tolerating well.
--- NOTE | 2020-11-18 17:24 | NUR ---
SUMMARY At this time, pt is receiving precedex at 0.3 mcg/kg/hr and propofol at 40 mcg/kg/min for ventilator tolerance. Sedation increased becuase pt was coughing, nonproductive, against ventilator. Pt is responsive to verbal stimulus. Does not follow commands as he did on lower levels of sedation. Ventilator settings remain ACVC 14/500/5/30%. SpO2 90% or greater. Moderate amounts of thick yellow sputum suctioned from ETT. Good urine output from vu catheter. Pt had large amount of output from rectal tube and bag was changed this shift. OG tube with feeds and flushes per orders, TF rate was changed by production tool engineer this shift. BP stable. HR is SB, rate 59. Will continue to closely monitor until care handoff and bedside report with oncoming RN.
[2020-11-18 18:56] LABS: Hematocrit 28.9 % (37.0-53.0); Hemoglobin 8.9 g/dL (13.5-17.5)
--- NOTE | 2020-11-18 23:00 | NUR ---
ASSUMED PT CARE AT 1915 FROM CAMRON ABRAMS PT INTUBATED AND SEDATED. PROPOFOL AT 40MCG/KG/MIN. PRECEDEX AT 0.03 MCG/KG/HR. PT GRIMACES AND WITHDRAWALS FROM PAIN. DOES NOT OPEN EYES OR FOLLOW COMMANDS ON SEDATION; THEREFORE, DECREASED PROPOFOL TO 20MCG/KG/MIN AND PRECEDEX TO 0.02 MCG/KG/HR. PT ATTEMPTING TO MOUTH WORDS AROUND ETT WITH BROWS FURROWED; THEREFORE, THEY DON'T APPEAR TO BE KIND WORDS HE IS ATTEMPTING TO MOUTH. PT DOES SQUEEZE HAND UPON COMMAND. NSR WITH HR 70'S; BP'S LABILE; THEREFORE, HELD NORVASC D/T HYPOTENSIVE AT TIMES WITH SBP NOTED TO BE LOW AT 70. PIVOT 1.5 INFUSING AT GOAL OF 25MLS/HR. RECTAL TUBE IN PLACE DRAINING BROWN LIQUID STOOL TO GRAVITY. JACOME CATHETER PATENT AND DRAINING YELLOW URINE TO GRAVITY. APPLIED ANTIFUNGAL POWDER TO GROIN RASH AND BUTTOCKS. ALSO APPLIED HYDROCOLLOID DRESSING TO STAGE II PRESSURE ULCER ON COCCYX. PICC LINE TO RIGHT UPPER ARM. ETT 8.0 AND 26CM AT THE TEETH. VENT AC 14, VT 500, PEEP 5, FIO2 30%. RR 14, SPO2 >90%. SEE SHIFT SUMMARY FOR FURTHER DETAILS.
[2020-11-19 04:38] LABS: BASOPHILS PERCENT AUTO 1 % (0-2); EOSINOPHILS ABSOLUTE AUTO 0.33 K/mm3 (0.00-0.68); EOSINOPHILS PERCENT AUTO 4 % (0-6); Hematocrit 25.2 % (37.0-53.0); Hemoglobin 7.9 g/dL (13.5-17.5); IMMATURE GRAN ABSOLUTE AUTO 0.11 K/mm3 (0.00-0.10); IMMATURE GRAN PERCENT AUTO 1 % (0-1); LYMPHOCYTES ABSOLUTE AUTO 1.52 K/mm3 (0.84-5.20); LYMPHOCYTES PERCENT AUTO 18 % (21-46); MONOCYTES ABSOLUTE AUTO 0.45 K/mm3 (0.16-1.47); MONOCYTES PERCENT AUTO 5 % (4-13); Mean Corpuscular HGB 28.1 pg (26.0-34.0); Mean Corpuscular HGB Conc 31.3 g/dL (31.5-36.5); Mean Corpuscular Volume 90 fL (80-100); NEUTROPHILS ABSOLUTE AUTO 5.96 K/mm3 (1.96-9.15); NEUTROPHILS PERCENT AUTO 70 % (41-73); Platelet Count 270 K/mm3 (150-400); RDW Coefficient Variation 16.5 % (11.7-14.2); RDW Standard Deviation 54.3 fL (35.1-46.3); Red Blood Cell Count 2.81 M/mm3 (4.30-5.90); White Blood Cell Count 8.47 K/mm3 (4.00-11.30)
[2020-11-19 04:40] LABS: Mean Platelet Volume 13.9 fL (9.1-12.4)
[2020-11-19 04:50] LABS: Albumin, Blood 1.7 g/dL (3.4-5.0); Anion Gap 5 mmol/L (6-16); Blood Urea Nitrogen 29 mg/dL (8-24); CO2, Blood 24 mmol/L (21-32); Calcium, Blood 7.5 mg/dL (8.5-10.1); Chloride, Blood 116 mmol/L (98-108); Creatinine, Blood 1.26 mg/dL (0.60-1.20); Glomerular Filtration Rate >60 (60-); Glucose, Blood 119 mg/dL (70-99); Phosphorus, Blood 2.9 mg/dL (2.5-4.9); Potassium, Blood 3.6 mmol/L (3.5-5.5); Sodium, Blood 145 mmol/L (136-145)
--- NOTE | 2020-11-19 05:57 | NUR ---
END OF SHIFT SUMMARY NO SIGNIFICANT CHANGES SINCE LAST ENTRY. PROPOFOL REMAINS AT 20MCG/KG/MIN. PRECEDEX AT 0.2 MCG/KG/HR. PT WILL OPEN EYES TO VERBAL STIMULUS AND FOLLOW COMMANDS. APPEARS TO BE COMFORTABLY SEDATED, BUT STILL AROUSABLE. VENT SETTINGS AC 14, VT 500, PEEP 5, FIO2 30%; SPO2>90%, RR 14-20. LUNG SOUNDS REMAIN COARSE/RHONCI T/O WITH MODERATE AMOUNTS OF THICK YELLOW/BENAVIDES SECRETIONS. PIVOT 1.5 CONTINUES AT GOAL OF 25ML/HR WITH 250ML WATER FLUSHES Q4H. RECTAL TUBE REMAINS WITH LIQUID BROWN OUTPUT. JACOME CATHETER IS PATENT AND DRAINING TO GRAVITY. PT ONLY HAD ONE HYPOGLYCEMIC EPISODE OF 41 AND WAS TREATED WITH AN AMP OF D50 PER ORDER. IT APPEARS PT RECEIVED HIS LONG ACTING INSULIN YESTERDAY MORNING; WILL REPORT OFF TO DAY RN IN REGARDS TO FOLLOWING UP ON LONG ACTING INSULIN. WILL CONTINUE TO MONITOR UNTIL REPORT IS HANDED OFF TO ONCOMING RN.
--- NOTE | 2020-11-19 07:30 | NUR ---
ASSUMED CARE BEDSIDE REPORT RECIEVED. PT IS INTUBATED AND SEDATED. VENT SETTING AC 14, TV 500, PEEP 5, FIO2 30%. PT WITH COPIOUS BENAVIDES ETT SECRETIONS WITH SUCTION. PT AROUSES TO VERBAL STIMULI. PT FOLLOWS SIMPLE COMMANDS AT TIMES. PICC TO TAMIKO C/D/I. PT SEDATED WITH PROPOFOL AT 20 MCG/KG/MIN AND PRECEDEX AT 0.2 MCG/KG/MIN. NS INFUSING TKO. OGT IN PLACE WITH TF INFUSING AT GOAL RATE. JACOME TEMP PROBE IN PLACE WITH CLEAR YELLOW OUTPUT NOTED. RECTAL TUBE IN PLACE WITH LIQUID BENAVIDES OUTPUT NOTED. SBW RESTRAINTS IN PLACE. VITAL SIGNS STABLE. WILL CONTINUE TO MONITOR.
--- NOTE | 2020-11-19 19:03 | NUR ---
ASSUMED PT CARE FROM CAMRON ANAYA AT 1900 PT REMAINS INTUBATED AND SEDATED. PROPOFOL AT 30MCG/KG/MIN. PRECEDEX AT 0.2MCG/KG/HR. PT ABLE TO OPEN AND TRACK EYES TO VERBAL STIMULUS. HE IS ABLE TO FOLLOW COMMANDS AND NOD HEAD YES/NO; HOWEVER, HE IS VERY RESISTANT AND MOST OF THE TIME WILL REFUSE TO ACKNOWLEDGE/ANSWER. VENT AC 14, VT 500, PEEP 5, FIO2 30%, RR 14, SPO2 99%. PICC LINE TO RIGHT UPPER ARM. RECTAL TUBE IN PLACE DRAINING BROWN LIQUID STOOL. TEMP JACOME CATHETER IN PLACE PATENT AND DRAINING YELLOW URINE. BILATERAL SOFT WRIST RESTRAINTS IN PLACE. SEE SHIFT SUMMARY FOR FURTHER DETAILS.
[2020-11-20 04:00] LABS: BASOPHILS ABSOLUTE AUTO 0.12 K/mm3 (0.00-0.23); BASOPHILS PERCENT AUTO 2 % (0-2); EOSINOPHILS ABSOLUTE AUTO 0.28 K/mm3 (0.00-0.68); EOSINOPHILS PERCENT AUTO 4 % (0-6); Hemoglobin 7.3 g/dL (13.5-17.5); IMMATURE GRAN ABSOLUTE AUTO 0.14 K/mm3 (0.00-0.10); IMMATURE GRAN PERCENT AUTO 2 % (0-1); LYMPHOCYTES ABSOLUTE AUTO 1.62 K/mm3 (0.84-5.20); LYMPHOCYTES PERCENT AUTO 21 % (21-46); MONOCYTES ABSOLUTE AUTO 0.38 K/mm3 (0.16-1.47); MONOCYTES PERCENT AUTO 5 % (4-13); Mean Corpuscular HGB 27.9 pg (26.0-34.0); Mean Corpuscular HGB Conc 30.4 g/dL (31.5-36.5); Mean Corpuscular Volume 92 fL (80-100); Mean Platelet Volume 12.8 fL (9.1-12.4); NEUTROPHILS ABSOLUTE AUTO 5.21 K/mm3 (1.96-9.15); NEUTROPHILS PERCENT AUTO 67 % (41-73); Platelet Count 269 K/mm3 (150-400); RDW Coefficient Variation 16.4 % (11.7-14.2); RDW Standard Deviation 54.7 fL (35.1-46.3); Red Blood Cell Count 2.62 M/mm3 (4.30-5.90); White Blood Cell Count 7.75 K/mm3 (4.00-11.30)
[2020-11-20 04:19] LABS: Albumin, Blood 1.6 g/dL (3.4-5.0); Anion Gap 5 mmol/L (6-16); Blood Urea Nitrogen 28 mg/dL (8-24); Bun/Creatinine Ratio 23.1 (12.0-20.0); CO2, Blood 25 mmol/L (21-32); Calcium, Blood 7.4 mg/dL (8.5-10.1); Chloride, Blood 113 mmol/L (98-108); Creatinine, Blood 1.21 mg/dL (0.60-1.20); Glomerular Filtration Rate >60 (60-); Glucose, Blood 194 mg/dL (70-99); Phosphorus, Blood 2.6 mg/dL (2.5-4.9); Potassium, Blood 3.5 mmol/L (3.5-5.5); Sodium, Blood 143 mmol/L (136-145)
--- NOTE | 2020-11-20 05:51 | NUR ---
END OF SHIFT SUMMARY NO SIGNIFICANT CHANGES SINCE LAST ENTRY. PT REMAINS INTUBATED WITH VENT SETTINGS UNCHANGED. PROPOFOL AT 25MCG/KG/MIN, PRECEDEX AT 0.3 MCG/KG/HR. PT STILL ABLE TO OPEN EYES AND FOLLOW COMMANDS. PT DISLIKES ORAL CARES AND FLIPPED ME THE BIRD DURING ORAL CARES AND SUCTIONING. PT CONTINUES TO FURROW BROW AND MOUTH OVER ETT; UNABLE TO MAKE OUT WHAT PT IS TRYING TO COMMUNICATE. PIVOT 1.5 REMAINS AT GOAL OF 25ML/HR. BLOOD SUGARS REMAINED STABLE THIS SHIFT D/T LONG ACTING INSULIN BEING HELD YESTERDAY MORNING; PT RECEIVED SLIDING SCALE COVERAGE PER ORDERS. JACOME AND RECTAL TUBE ARE PATENT AND DRAINING TO GRAVITY. WILL CONTINUE TO MONITOR UNTIL REPORT IS HANDED OFF TO ONCOMING RN.
--- NOTE | 2020-11-20 08:00 | NUR ---
ASSUMED CARE BEDSIDE REPORT RECIEVED. PT IS LAYING IN BED INTUBATED AND SEDATED. VENT SETTINGS AC 14, TV 500, PEEP 5, FIO2 30%. PT WITH MINIMAL ETT SECRETIONS NOTED. PT SEDATED WITH PROPOFOL AT 25 MCG/KG/MIN AND PRECEDEX 0.3 MCG/KG/MIN. PICC TO TAMIKO C/D/I. OGT IN PLACE WITH TF AT GOAL RATE. JACOME IN PLACE WITH YELLOW OUTPUT NOTED. RECTAL TUBE IN PLACE WITH LIQUID BROWN OUTPUT NOTED. SBW RESTRAINTS IN PLACE. PT OPENS EYES AND TRACKS TO VOICE. FOLLOWS SOME COMMANDS AT TIMES. WILL CONTINUE TO MONITOR.
--- NOTE | 2020-11-20 16:54 | NUR ---
SHIFT SUMMARY NO ACUTE CHANGES THIS SHIFT. PT REMAINS INTUBATED AND SEDATED. VENT SETTINGS UNCHANGES. PT SEDATED WITH PROPOFOL AT 35 MCG/KG/MIN AND PRECEDEX 0.3 MCG/KG/MIN. PT OPENS EYES SPONTANEOUSLY AND OCCASIONALLY FOLLOWS SIMPLE COMMANDS. PT FURROWS BROW WITH ANY NURSING CARE. PICC TO TAMIKO C/D/I. OGT REMAINS IN PLACE WITH TF AT GOAL RATE. JACOME TEMP PROBE IN PLACE WITH YELLOW URINE OUTPUT. RECTAL TUBE REMAINS IN PLACE WITH LIQUID BROWN/BENAVIDES OUTPUT. SBW RESTRAINTS REMAIN IN PLACE. VITAL SIGNS STABLE. NO VISITORS CAME THIS SHIFT. DAUGHTER UPDATED VIA PHONE. WILL CONTINUE TO MONITOR AND REPORT OFF TO ONCOMING RN.
--- NOTE | 2020-11-20 19:39 | NUR ---
PATIENT INTUBATED AND SEDATED WITH PRECEDEX 0.3 AND PROPOFOL 35, PATIENT OPENS EYES TO SLIGHT STIMULI, GRIMACING WITH ORAL CARE, RELAXED WITH REPOSITIONING. ETT WITH VENT AC 14, TV 500, PEEP 5, FIO2 30% SUCTIONING THICK LIGHT YELLOW SPUTUM VIA ETT. OG IN PLACE WITH TUBE FEEDING PIVOT 1.5 AT GOAL RATE 25 CC/HR. RECTAL TUBE IN PLACE DRAINING LIQUID BROWN STOOL.
--- NOTE | 2020-11-21 00:26 | NUR ---
PATIENT REPOSITIONED TO HIS RIGHT SIDE AND BIOX DOWN TO 87% UNABLE TO SUCTION ANY SECRETIONS VIA ETT. LUNG SOUNDS REMAIN UNCHANGED. PATIENT ALSO HYPOTENSIVE. RT CALLED AND UDN TX GIVEN AND FIO2 INCREASED TO 60%. SEDATION TITRATED PROPOFOL 25 MCG AND PRECEDEX 0.2 MCG. PATIENT CONTINUES TO GRIMACE, BUT IS RELAXED. WILL CONTINUE TO MONITOR
[2020-11-21 03:40] LABS: BASOPHILS PERCENT AUTO 1 % (0-2); EOSINOPHILS ABSOLUTE AUTO 0.24 K/mm3 (0.00-0.68); EOSINOPHILS PERCENT AUTO 3 % (0-6); Hematocrit 25.6 % (37.0-53.0); Hemoglobin 7.9 g/dL (13.5-17.5); IMMATURE GRAN ABSOLUTE AUTO 0.19 K/mm3 (0.00-0.10); IMMATURE GRAN PERCENT AUTO 2 % (0-1); LYMPHOCYTES ABSOLUTE AUTO 1.32 K/mm3 (0.84-5.20); LYMPHOCYTES PERCENT AUTO 15 % (21-46); MONOCYTES ABSOLUTE AUTO 0.39 K/mm3 (0.16-1.47); MONOCYTES PERCENT AUTO 4 % (4-13); Mean Corpuscular HGB 27.9 pg (26.0-34.0); Mean Corpuscular HGB Conc 30.9 g/dL (31.5-36.5); Mean Corpuscular Volume 91 fL (80-100); Mean Platelet Volume 12.6 fL (9.1-12.4); NEUTROPHILS ABSOLUTE AUTO 6.67 K/mm3 (1.96-9.15); NEUTROPHILS PERCENT AUTO 75 % (41-73); Platelet Count 263 K/mm3 (150-400); RDW Coefficient Variation 16.3 % (11.7-14.2); Red Blood Cell Count 2.83 M/mm3 (4.30-5.90); White Blood Cell Count 8.91 K/mm3 (4.00-11.30)
[2020-11-21 03:59] LABS: Albumin, Blood 1.8 g/dL (3.4-5.0); Anion Gap 7 mmol/L (6-16); Blood Urea Nitrogen 31 mg/dL (8-24); Bun/Creatinine Ratio 24.2 (12.0-20.0); CO2, Blood 22 mmol/L (21-32); Calcium, Blood 7.7 mg/dL (8.5-10.1); Chloride, Blood 112 mmol/L (98-108); Creatinine, Blood 1.28 mg/dL (0.60-1.20); Glomerular Filtration Rate 60 (60-); Glucose, Blood 290 mg/dL (70-99); Phosphorus, Blood 2.8 mg/dL (2.5-4.9); Potassium, Blood 3.8 mmol/L (3.5-5.5); Sodium, Blood 141 mmol/L (136-145)
[2020-11-21 04:15] LABS: Vancomycin, Trough 13.8 ug/mL (5.0-10.0)
--- NOTE | 2020-11-21 06:45 | NUR ---
SUMMARY PATIENT REMAINS INTUBATED AND SEDATED. VENT AC 14, TV 500, PEEP 5, FIO2 30% AWAKENS EASILY, BUT CALM WITH PROPOFOL 25 MCG, AND PRECEDEX 0.2 MCG. OG REMAINS IN PLACE WITH PIVOT 1.5 AT GOAL RATE OF 25 CC/HR WITH 250 CC Q6 HR'S WITH MIN RESIDUALS. RECTAL TUBE REMAINS IN PLACE DRAINING LIQUID BROWN STOOL.
--- NOTE | 2020-11-21 10:43 | NUR ---
CARE ASSUMED OF PT AT 0700 THIS AM. [facility]. PROPOFOL AT 25MCG, PRECEDEX AT 2MCG. PT LIFTED MIDDLE FINGER TOWARDS SLOT SHIFT MANAGER WITH CARE THIS AM. PT DOES SEEM TO NOD APPROPRIATELY TO QUESTIONS. NO TO TV, MORE SEDATION, AND PAIN. YES TO WANTING CUTAINS OPENED. DR FOREMAN AT BEDSIDE THIS AM. PLAN IS TO EXTUBATE TOMORROW.
--- NOTE | 2020-11-21 11:20 | NUR ---
PICC TIP IN RIGHT [facility]. DR FOREMAN NOTIFIED. PT IS NOT HAVING ANY ECTOPY, WILL NOT PULL PICC BACK UNLESS PT HAS ECTOPY ISSUES
--- NOTE | 2020-11-21 17:34 | NUR ---
PT CALM IN BED WITH EYES OPEN. PT HAD DENIED PAIN OR DISCOMFORT EVERY 2HRS THAT I HAD ASKED PREVIOUSLY DURING SHIFT. AT 1640 PT NODDED HEAD YES TO PAIN AND DISCOMFORT. DR FOREMAN NOTIFIED. MARIZA 25MCG GIVEN FOR DISCOMFORT.
--- NOTE | 2020-11-21 21:04 | NUR ---
PATIENT REMAINS INTUBATED AND SEDATED LIGHTLY WITH PRECEDEX 0.2 MCG AND PROPOFOL 25 MCG, OPENS EYES SPONTANEOUSLY, DEAN, AT TIMES MOUTHING WORDS AROUND ETT. COPIOUS ORAL CLEAR ORAL SECRETIONS SUCTIONED. VENT AC 14, TV 500, PEEP 5, FIO2 30% SUCTIONING TICK WHITE/YELLOW SPUTUM VIA ETT. OG IN PLACE WITH PIVOT 1.5 AT GOAL RATE OF 25 CC/HR. RECTAL TUBE REMAINS IN PLACE DRAINING LIQUID BROWN STOOL.
--- NOTE | 2020-11-22 06:35 | NUR ---
SUMMARY PATIENT REMAINS INTUBATED AND SEDATED WITH VENT AC 14, TV 500, PEEP 5, FIO2 30% SUCTIONING OCCASIONAL THICK WHITE/YELLOW SPUTUM. SEDATED WITH PRECEDEX 0.2MCG AND PROPOFOL 25 MCG, PATIENT AWAKE AND CALM OPENING EYES AND FOLLOWING SIMPLE DIRECTIONS AT TIMES, NOT ALWAYS CONSISTENT, AT TIME JUST LOOKING AT STAFF AND NOT ASSISTING WITH REPOSITIONING. RECTAL TUBE REMAINS IN PLACE DRAINING LIQUID BROWN STOOL. OG WITH TUBE FEEDING PIVOT 1.5 AT GOAL RATE OF 25 CC/HR WITH 250 CC WATER Q6HR, MIN RESIDUALS T/O NIGHT.
--- NOTE | 2020-11-22 07:30 | NUR ---
Received report from Patricia LYON. He is intubated and sedated on vent with 8.0 ET and 27 cm at teeth and settings of AC 14, TV 500, FiO2 30%, PEEP 5.0 and sats 96%. He opens eyes to verbal stimuli and follows minimal commands, He has OG in place with Pivot 1.5 at 25ml/hr and 250 ml water flushes Q6. He has rectal tube in place and has liquid brown stool. He also has 16Fr temp vu and is afebrile at 98.2. he has 20ga IV to LH flushed and SL'd. He also has PICC line to TAMIKO dressing intact and site WNL's and is infusing Precedex at 0.2 mcg/kg/hr, Propofol at 25 mcg/kg/min, NS TKO. Plan for extubation around 1430.
--- NOTE | 2020-11-22 10:14 | NUR ---
No significant changes with patient's vent or gtt setting. Dr Chavira has been in assessing and no new orders. Patient continues to awaken to verbal stimuli and follows some simple commands. All IV lines changed out.
--- NOTE | 2020-11-22 11:36 | NUR ---
Full bed bath given and patient repositioned. Linen changed. Propofol at 25 mcg/kg/min, Precedex at 0.2 mcg/kg/hr and NS TKO for Abx. Patient awakens when entering room and track some sometimes. No Other significant changes with patient.
--- NOTE | 2020-11-22 13:30 | NUR ---
No significant changes with patient, he is wide awake and tracks while in room and trys to communicate. Propofol remains 25 mcg/kg/min and precedex at 0.2 mcg/kg hr, NS TKO. No vent setting changes.
--- NOTE | 2020-11-22 15:30 | NUR ---
Family arrived and stopped TF's and Propofol. Dr Chavira spoke with family and we extubated at 1430. He was placed on 6L via NC and reduced to 2 L . Family at bedside (daughter and her spouse)
--- NOTE | 2020-11-22 18:16 | NUR ---
PT TRANSFERED TO 336. PT ORIENTED TO SELF. INSTRUCTED ON HOW TO USE HIS CALL LIGHT. RECTAL TUBE AND JACOME CATH PATENT & DRAINING. NICKO RILEY IN PALLIATIVE CARE SPEAKING WITH ADITYA CURRENTLY. PT RESTING IN BED AND DENIES OTHER NEEDS AT THIS TIME.
--- NOTE | 2020-11-22 18:18 | NUR ---
Case Conference Note Met with Pt's son and daughter in ICU waiting room. Offered therapeutic listening and answered questions. Son is requesting Pt be Placed on hospice in a facility in [place] and inquires if this is possible. He reports this will give the Pt an oppertunity to have visitors since they live in [facility]. Deferred this question for caremanager to answer. Discussed ultimately Pt's spouse makes the final decision. Continued therapeutic listening. Family expresses concerns what spouse will do when Pt passes. Son reports Pt bought a plot at the [facility] here in [place] and states spouse has stated "I'm going to have him creamated and flush him down the toilet". Suggested to find legal administrative secretary. Continued therapeutic listening. Family expresses appreciation of visit. Palliative Care will remain available.
--- NOTE | 2020-11-22 18:20 | NUR ---
Called report to Med RN. patient was cleaned up from rectal tube leak and linen changed. Groin is very red and applied medicated powder. All belonging went with patient. left dressing off coccyx and it was keeping moisture at skin breakdown. Daughter met with Paliative care.
--- NOTE | 2020-11-22 19:20 | NUR ---
ASSUMED CARE RECEIVED REPORT FROM CAMRON STARK. PT RESTING, IN NAD. SOFT SPOKEN. PT COVERED IN WARM BLANKETS. NO OTHER ACUTE NEEDS ASSESSED AT THIS TIME. CALL LIGHT, POSSESSIONS IN REACH, BED IN LOW AND LOCKED POSITION WITH ALARMS ON. PT CALM AND COOPERATIVE AT THIS TIME.
--- NOTE | 2020-11-23 04:12 | NUR ---
COMMUNITY OUTREACH MANAGER SUMMARY PT ASLEEP, IN NAD. HAS BEEN ASLEEP ON AND OFF THROUGH THE NIGHT. PT PULLED PICC LINE, RECTAL TUBE AND JACOME REMAIN IN PLACE, PATENT AND DRAINING TO GRAVITY. APPEARS COMFORTABLE. NO C/O PAIN OR DISCOMFORT. RESPS E/U. NO ACUTE NEEDS ASSESSED AT THIS TIME. CALL LIGHT, POSSESSIONS IN REACH, BED IN LOW AND LOCKED POSITION WITH ALARMS ON. WILL CONTINUE TO PROVIDE FOR COMFORT UNTIL REPORT GIVEN TO ONCOMING RN.
--- NOTE | 2020-11-23 18:30 | NUR ---
Spiritual care note: Mr. Melendez appeared to be sleeping when I entered room and sat beside him. He did not respond to touch, but when I asked if I could pray for him he smiled weakly and nodded 'yes." No family present. I stayed at bedside for awhile providing presence of love. I will remain available.
--- NOTE | 2020-11-23 18:46 | NUR ---
FC DC'D PER PT REQUEST.
--- NOTE | 2020-11-23 19:42 | NUR ---
PT RESTIN IN BED AND MAKES NO C/O PAIN AT THIS TIME. TREATED ONCE PER EMAR. PT FC WAS DC'D HE WAS PULLING ON HIS LINE AND STATED HE WOULD LIKE IT OUT. THICKENED LIQ PROVIDED THIS SHIFT HOWEVER MEALS WERE NOT TOLERATED AND REFUSED. SUCTION AT BEDSIDE. PT TURNED Q2 OR NEEDED. STAFF WILL CONTINUE TO MONITOR FOR COMFORT.
--- NOTE | 2020-11-24 07:33 | NUR ---
SHIFT SUMMARY PT IS A 65 Y/O MALE, ADMITTED FOR SUICIDAL IDEATION AND CURRENTLY ON COMFORT CARE. HE IS A&O X SELF, VERY LETHARGIC DURING THE NIGHT. NO C/C OF PAIN, NAUSEA OR SOB. PT'S RECTAL TUBE WAS DC'D DUE TO LEAKAGE. PT SLEPT THROUGH THE NIGHT. NO ACUTE CHANGES IN PT CONDITION NOTED. WILL CONTINUE TO MONITOR AND TREAT PER EMAR UNTIL HAND OFF TO DAY SHIFT RN.
--- NOTE | 2020-11-24 09:30 | NUR ---
Comfort Care Visit Pt resting in bed with his eyes closed. This RN did not disturb Pt at this time. Pt appears comfortable with no S/S of distress at this time. Spoke with Pt's primary RN John and discussed case. Palliative Care will remain available.
--- NOTE | 2020-11-24 17:04 | NUR ---
SHIFT SUMMARY PATIENT IS ON COMFORT CARE MEASURES. PATIENT IS VASTLY UNRESPONSIVE THIS SHIFT. PATIENT OPENS EYES MINIMALLY WHEN REPOSITIONED. PATIENT DOES NOT RESPOND TO GENTAL TOUCH OR VERBAL STIMULI. PATIENT DOES NOT APPEAR TO BE IN PAIN OR DISTRESS THIS SHIFT. PATIENT REPOSITIONED REGULARLY THROUGHOUT THIS SHIFT.
--- NOTE | 2020-11-25 00:55 | NUR ---
LATE ENTRY 11/25/20 2335 WENT TO CHECK ON PT AND PT APPEARED TO BE NOT BREATHING. UPON ASSESSMENT PT WAS FOUND TO HAVE NO HEART BEAT AND NO RESPIRATIONS. SECOND RN RYAN ROGERS VERIFIED. ARCH SUPPORT TECHNICIAN RAMBO SOOD, NURSING CHANNEL DEVELOPMENT DIRECTOR RASHEL FLORES, AND CRIMINAL JUDGE HOSPITALIST DR. FIORE NOTIFIED. CALL MADE TO DAUGHTER SIRI WHO DID NOT ROAD HOGGER OPERATOR. CALL ALSO MADE TO [employer], LISTED NEXT OF KIN. STATED THAT SHE HAD NOT CHOSEN A MORTUARY. NEXT CRIMINAL JUDGE MORTUARY NOTIFIED AND DONOR LINE BY RAMBO SOOD. VERY CONCERNED ABOUT GETTING A CALL FROM DOCTOR SIGNING CERTIFICATE. SHE STATES THAT WHAT IS PUT ON THE CERTIFICATE WILL AFFECT THE BENEFITS SHE WILL RECIEVE. CLINICAL COORDINATOR RYAN LOPEZ SPOKE WITH BOTH NURSING CHANNEL DEVELOPMENT DIRECTOR AND ABOUT CONCERNS AND LET KNOW THAT THE CERTIFICATE IS USUALLY SIGNED BY THE PRIMARY CARE PHYSICIAN AND THAT THE MORTUARY WOULD HELP PT WITH THIS PROCESS. PT PREPPED AND PLACED IN YELLOW GOWN. PERSONAL BELONGINGS CONSIST OF A BLANKET AND A PAIR OF GLASSES, PLACED ON BED TO GO WITH PT TO MORTUARY.
== END 2020-11-24 23:35 | DRG 870 ==
LOC: ER 13:07 → ICUW 13:08 → MEDS 13:08 → ICUW 13:08 → MEDS 13:08 → ICUW 10-24 22:39 → MEDS 10-26 17:55 → ICUW 10-28 → ICUE 10-28 → ICUW 10-28 00:02 → MEDS 11-04 17:18 → PCU 11-12 18:34 → ICUE 11-14 03:21 → MEDS 11-22 18:01
PROVIDERS: Emergency Medicine; Family Medicine; Internal Medicine; Internal Medicine Critical Care Medicine; Internal Medicine Pulmonary Disease; Nurse Practitioner Acute Care; Pharmacist; Specialist; Student in an Organized Health Care Education/Training Program; ADMIT Internal Medicine
PROC: 0BH17EZ Insertion of Endotracheal Airway into Trachea, Via Natural or Artificial Opening (ICD-10-PCS; principal; 2020-10-28)
PROC: 5A1955Z Respiratory Ventilation, Greater than 96 Consecutive Hours (ICD-10-PCS; 2020-10-28)
PROC: 3E033XZ Introduction of Vasopressor into Peripheral Vein, Percutaneous Approach (ICD-10-PCS; 2020-10-28)
PROC: 5A09357 Assistance with Respiratory Ventilation, Less than 24 Consecutive Hours, Continuous Positive Airway Pressure (ICD-10-PCS; 2020-11-14)
PROC: 0BH17EZ Insertion of Endotracheal Airway into Trachea, Via Natural or Artificial Opening (ICD-10-PCS; 2020-11-14)
PROC: 5A1945Z Respiratory Ventilation, 24-96 Consecutive Hours (ICD-10-PCS; 2020-11-14)
PROC: 0BH17EZ Insertion of Endotracheal Airway into Trachea, Via Natural or Artificial Opening (ICD-10-PCS; 2020-11-16)
PROC: 5A1955Z Respiratory Ventilation, Greater than 96 Consecutive Hours (ICD-10-PCS; 2020-11-16)
DX: A41.02 Sepsis due to Methicillin resistant Staphylococcus aureus (principal); R65.21 Severe sepsis with septic shock; J96.01 Acute respiratory failure with hypoxia; J69.0 Pneumonitis due to inhalation of food and vomit; J15.212 Pneumonia due to Methicillin resistant Staphylococcus aureus; Z51.5 Encounter for palliative care; Z66 Do not resuscitate; N39.0 Urinary tract infection, site not specified; E87.0 Hyperosmolality and hypernatremia; R45.851 Suicidal ideations; N17.9 Acute kidney failure, unspecified; F01.51 Vascular dementia, unspecified severity, with behavioral disturbance; J98.11 Atelectasis; E87.6 Hypokalemia; I48.0 Paroxysmal atrial fibrillation; Z78.1 Physical restraint status; D63.1 Anemia in chronic kidney disease; E11.649 Type 2 diabetes mellitus with hypoglycemia without coma; K21.9 Gastro-esophageal reflux disease without esophagitis; E11.22 Type 2 diabetes mellitus with diabetic chronic kidney disease; R45.1 Restlessness and agitation; N18.30 Chronic kidney disease, stage 3 unspecified; F12.10 Cannabis abuse, uncomplicated; D50.9 Iron deficiency anemia, unspecified; F32.9 Major depressive disorder, single episode, unspecified; I12.9 Hypertensive chronic kidney disease with stage 1 through stage 4 chronic kidney disease, or unspecified chronic kidney disease; Z79.4 Long term (current) use of insulin; Z91.19 Patient's noncompliance with other medical treatment and regimen; Z79.899 Other long term (current) drug therapy; Z90.89 Acquired absence of other organs; Z87.891 Personal history of nicotine dependence; Z89.421 Acquired absence of other right toe(s); Z86.73 Personal history of transient ischemic attack (TIA), and cerebral infarction without residual deficits
CPT/HCPCS: 31500; 31720; 36415; 36430; 36569; 36600; 51702; 71045; 80048; 80053; 80069; 80202; 81001; 82271; 82330; 82550; 82553; 82565; 82607; 82728; 82746; 82803; 82947; 83036; 83516; 83540; 83550; 83605; 83735; 83880; 84100; 84145; 85014; 85018; 85025; 85027; 86850; 86900; 86901; 86923; 87040; 87070; 87077; 87086; 87106; 87147; 87186; 87205; 92526; 92610; 93005; 93010; 94002; 94003; 94640; 94660; 94667; 94668; 94760; 94762; 96372; 96374; 97110; 97116; 97162; 97167; 97530; 97535; 99285; A9270; C1751; C9113; G0378; G0480; J0295; J0330; J0360; J1200; J1630; J1650; J1815; J2250; J2370; J2405; J2543; J2704; J2765; J2916; J3010; J3370; J3480; J7030; J7042; J7050; J7060; J7070; J7120; P9016; P9046; Q3014